=== PATIENT | female | born 1960 | race African-American/Black ===

== ENCOUNTER → 2016-07-26 | Day surgery (SDC) | payer BC ==
[~2016-07-26] VITALS: Ht 167.6 cm; Wt 69.8 kg
[~2016-07-26] MED LIST: ATRO1SOL11 RIGHT EYE; BACL20TA PO; FLUO10CA5 PO; FOLI1TAB4 PO; HYALURONIDASE/LIDOCAINE/EPINEPHRINE/BUPIVACAINE 4.5 ML SYR RIGHT EYE ONE; HYALURONIDASE/LIDOCAINE/EPINEPHRINE/BUPIVACAINE 6 ML SYR RIGHT EYE ONE; LIDOCAINE HCL 1% 30 ML VIAL ONE; METO50TA PO; METO50TA11 PO; MIDAZOLAM HCL 2 MG/2 ML VIAL ONE; OCUF0.3D RIGHT EYE; OMNI1SUS RIGHT EYE; PANT40TA3 PO; PROPARACAINE HCL 0.5% OPHT SOLN 15 ML BTL RIGHT EYE ONE; PROPOFOL 200 MG/20 ML AMP ONE; SODIUM CHLORID 0.9% 500 ML INJ 500 ML ONE
[2016-07-26 09:12] VITALS: BP 116/71; PULSE 65; RESP 18; TEMP 99.5; O2SAT 99
[2016-07-26] MEDS: TROPICAMIDE 1% OPHT SOLN 15 ML BTL RIGHT EYE SCH ×4 (09:15→09:30)
[2016-07-26] MEDS: CYCLOPENTOLATE HCL 1% OPHT SOLN 2 ML BTL RIGHT EYE SCH ×4 (09:15→09:30)
[2016-07-26] MEDS: PHENYLEPHRINE HCL 10% OPTH SOLN 5 ML BTL RIGHT EYE SCH ×4 (09:15→09:30)
[2016-07-26] MEDS: FLURBIPROFEN 0.03% OPHT SOLN 2.5 ML BTL RIGHT EYE SCH ×4 (09:15→09:30)
[2016-07-26 09:17] VITALS: PULSE 65
[2016-07-26 09:52] VITALS: PULSE 71
[2016-07-26] MEDS: TOBRAMYCIN/DEXAMETHASONE OPTH OINT 3.5 GM TUBE ONE ×2 (10:24→10:27)
[2016-07-26 11:20] VITALS: BP 90/45; PULSE 66; RESP 16; TEMP 98; O2SAT 99
--- NOTE | 2016-07-27 17:01 | MP ---
cc: DALE STAFFORD M.D. Corrected Copy: 08/07/16 [facility] #[id number] DATE OF SURGERY 07/26/15 POSTOPERATIVE DIAGNOSIS: Visually significant cataract right eye. OPERATION: Phacoemulsification with posterior chamber lens implantation, right eye. SURGEON: Dale Stafford MD ANESTHESIA: Retrobulbar with MAC. COMPLICATIONS: None. PROCEDURE: After informed consent was obtained, the patient was brought into the operative suite and placed on appropriate monitors by the Anesthesia Service. The patient had received a prior retrobulbar injection of local anesthetic by the Anesthesia Service in the holding area. The patient's operative eye was then prepped and draped in the usual sterile fashion. A wire lid speculum was placed. A paracentesis incision was made in the peripheral cornea with a 1 mm tosha keratome. The anterior chamber was filled with viscoelastic. The anterior chamber was then entered through a stepped, clear corneal incision using a sharp 3 mm tosha keratome. A circular tear capsulorrhexis was then made with a bent needle cystitome. Following hydrodissection of the lens nucleus with balanced saline, phaco-emulsification of the nucleus was performed using a modified chopping technique. The remaining cortex was removed with irrigation/aspiration. The prior two procedures were both performed using the handpieces of the [employer] phaco unit. The capsular bag was then filled with viscoelastic. The intraocular lens was then injected into the capsular bag and positioned. The type of intraocular lens and its power can be found elsewhere in this chart. The remaining viscoelastic was then removed from the anterior chamber with the IA handpiece. The anterior chamber was reformed with balanced saline. The wound was then closed securely with stromal hydration. It was found to be watertight to an intraocular pressure of at least 30 mmHg by palpation. A small amount of balanced salt solution was then removed through the paracentesis site and the intraocular pressure at the end of the case was approximately 20 by palpation. All drapes were then removed. TobraDex ointment was then placed in the eye, which was closed beneath a semi-pressure patch dressing. The patient tolerated this procedure well and left the operating room awake and alert. The patient is to follow-up in my office in the morning. MD GILDARDO Osei /11:06 AM /10:05 AM
== END | disposition home or self-care (01) ==
LOC: CSDC 08:26
PROVIDERS: ATTEND Optometrist Occupational Vision
DX: H25.11 Age-related nuclear cataract, right eye (principal)
CPT/HCPCS: 00142; 66984; J2250; J7040; V2632

== ENCOUNTER 2016-08-27 11:18 | Emergency (ER) | payer BC ==
[~2016-08-27] VITALS: Ht 167.6 cm; Wt 70.0 kg
[~2016-08-27 11:18] MED LIST changes: -HYALURONIDASE/LIDOCAINE/EPINEPHRINE/BUPIVACAINE 4.5 ML SYR RIGHT EYE ONE; -HYALURONIDASE/LIDOCAINE/EPINEPHRINE/BUPIVACAINE 6 ML SYR RIGHT EYE ONE; -LIDOCAINE HCL 1% 30 ML VIAL ONE; -METO50TA PO; -MIDAZOLAM HCL 2 MG/2 ML VIAL ONE; -PROPARACAINE HCL 0.5% OPHT SOLN 15 ML BTL RIGHT EYE ONE; -PROPOFOL 200 MG/20 ML AMP ONE; -SODIUM CHLORID 0.9% 500 ML INJ 500 ML ONE
[2016-08-27 11:21] VITALS: BP 139/65; PULSE 65; RESP 18; TEMP 97.9; O2SAT 100
[2016-08-27] MEDS ORDERED: SODIUM CHLOR 0.9% 1000 ML INJ 1,000 ML IV ONE (11:44)
[2016-08-27] MEDS ORDERED: diphenhydrAMINE HCL 50 MG/ML VIAL IV ONE (11:45)
[2016-08-27] MEDS ORDERED: MORPHINE SULFATE 8 MG/ML INJ IV PUSH ONE ×2 (11:45→13:45)
[2016-08-27] MEDS ORDERED: SODIUM CHLORIDE 0.9% FLUSH 5 ML FLUSH IVF PRN (11:45)
[2016-08-27] MEDS ORDERED: KETOROLAC TROMETHAMINE 30 MG/ML (IVP) VIAL IVP ONE (11:45)
[2016-08-27 11:52] VITALS: RESP 18; O2SAT 96
--- NOTE | 2016-08-27 12:11 | PD ---
HPI Chief Complaint: Sickle Cell Time Seen by Provider: 11:25 Travel History International Travel<30 days: No Contact w/Intl Traveler<30days: No Traveled to known affect area: No History of Present Illness HPI Patient is a 56-year-old female with a history of sickle cell anemia presents today with pain in her back bilateral upper extremities bilateral lower extremities. Patient states feels very similar to previous pain crisis she's had. She tried Aleve at home without relief and tried 1 Percocet. Patient denies any fevers cough shortness of breath abdominal pain nausea vomiting vaginal bleeding vaginal discharge dysuria. She does endorse some mild chest pain. Patient states the pain is been happening to her for the past 3 days gradually worsening. PFSH Past Medical History Arthritis: No Asthma: No Blood Disorders: Yes (DVT'S) Heart Rhythm Problems: No Cancer: No Cardiac Catheterization: No Cardiovascular Problems: Yes (PALPITATIONS) High Cholesterol: No Chemotherapy: No Chest Pain: No Congestive Heart Failure: No COPD: No Cerebrovascular Accident: No Diabetes: No Diminished Hearing: No Deep Vein Thrombosis: Yes Endocrine: No Gastrointestinal Disorders: No GERD: No Glaucoma: No Genitourinary: No Headaches: No Hepatitis: No Hiatal Hernia: No Hypertension: No Immune Disorder: No Implanted Vascular Access Dvce: Yes (PORT) Kidney Stones: No Musculoskeletal: Yes (ARTHRITIS) Neurologic: No Psychiatric: No Reproductive: No Respiratory: No Migraines: No Myocardial Infarction: No Radiation Therapy: No 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) Seizures: No Sickle Cell Disease: Yes Sleep Apnea: No Thyroid Disease: No Ulcer: No ?: Not Menopausal: Yes : 4 Para: 3 Miscarriage: 1 Ovarian Cysts: Yes Tubal Ligation: Yes (1996) Past Surgical History Abdominal Surgery: Yes (CHICHI, APPEND., COLON REPAIR) AICD: No Appendectomy: Yes Arteriovenous Shunt: No Body Medical Devices: LOOP RECORDER, INFUSA PORT Cardiac Surgery: Yes (CARDIAC LOOP RECORDER,) Cholecystectomy: Yes Coronary Artery Bypass Graft: No Ear Surgery: Yes Endocrine Surgery: No Eye Surgery: Yes (RIGHT EYE BLEED,) Genitourinary Surgery: No Gynecologic Surgery: Yes (OVARIAN CYSTS X3) Insulin Pump: No Joint Replacement: No Neurologic Surgery: No Oral Surgery: No Pacemaker: No Thoracic Surgery: No Other Surgery: Yes (LEFT SUBCLAV PORT) Social History Alcohol Use: No Tobacco Use: No Substance Use: No Allergies-Medications (Allergen,Severity, Reaction): Coded Allergies: Pneumococcal Vaccine (Verified Allergy, Severe, Edema, 08/27/16) ARM SWOLLEN Reported Meds & Prescriptions Reported Meds & Active Scripts Active Reported Atropine Opth Drops 1% Soln 1 Drop RIGHT EYE Q6H Ocuflox Opth Drops (Ofloxacin Opth Drops) 0.3 % Drops 1 Drop RIGHT EYE QID Pantoprazole (Pantoprazole Sodium) 40 Mg Tab 40 Mg PO DAILY Baclofen 20 Mg Tab 20 Mg PO TID PRN Folate (Folic Acid) 1 Mg Tab 1 Mg PO DAILY Fluoxetine (Fluoxetine HCl) 10 Mg Cap 10 Mg PO DAILY Metoprolol Succinate ER 24 HR (Metoprolol Succinate) 50 Mg Tab 50 Mg PO BID NEB Review of Systems Except as stated in HPI: all other systems reviewed are Neg Physical Exam Narrative GENERAL: [Well-developed well-nourished, appears fairly comfortable. SKIN: Warm and dry. HEAD: Atraumatic. Normocephalic. EYES: Pupils equal and round. No scleral icterus. No injection or drainage. ENT: No nasal bleeding or discharge. Mucous membranes pink and moist. NECK: Trachea midline. No JVD. CARDIOVASCULAR: Regular rate and rhythm. No murmur appreciated. 2+ bilateral equal pulses in all 4 extremities. RESPIRATORY: No accessory muscle use. Clear to auscultation. Breath sounds equal bilaterally. GASTROINTESTINAL: Abdomen soft, non-tender, nondistended. Hepatic and splenic margins not palpable. MUSCULOSKELETAL: No obvious deformities. No clubbing. No cyanosis. No edema. Nontender exam of her extremities, spine. NEUROLOGICAL: Awake and alert. No obvious cranial nerve deficits. Motor grossly within normal limits. Normal speech. PSYCHIATRIC: Appropriate mood and affect; insight and judgment normal. Data Data Last Documented VS Vital Signs Date Time Temp Pulse Resp B/P Pulse Ox O2 Delivery O2 Flow Rate FiO2 08/27/16 13:32 65 18 134/60 97 Room Air 08/27/16 11:21 97.9 Orders C-Reactive Protein (Crp) (08/27/16 11:44) Complete Blood Count With Diff (08/27/16 11:44) Comprehensive Metabolic Panel (08/27/16 11:44) Retic Count (08/27/16 11:44) Urinalysis - C+S If Indicated (08/27/16 11:44) Chest, Single Ap (08/27/16 11:44) Ecg Monitoring (08/27/16 11:44) Iv Access Insert/Monitor (08/27/16 11:44) Oximetry (08/27/16 11:44) Ketorolac Inj (Toradol Inj) (08/27/16 11:45) Sodium Chloride 0.9% Flush (Ns Flush) (08/27/16 11:45) Sodium Chlor 0.9% 1000 Ml Inj (Ns 1000 M (08/27/16 11:44) Morphine Inj (Morphine Inj) (08/27/16 11:45) Diphenhydramine Inj (Benadryl Inj) (08/27/16 11:45) Electrocardiogram (08/27/16 ) Troponin I (08/27/16 11:44) Vascular Access Team Consult PRN (08/27/16 12:01) Morphine Inj (Morphine Inj) (08/27/16 13:45) Labs Laboratory Tests Test 08/27/16 08/27/16 12:20 12:35 Urine Color YELLOW Urine Turbidity CLEAR Urine pH 7.0 Urine Specific [place] 1.006 Urine Protein NEG mg/dL Urine Glucose (UA) NEG mg/dL Urine Ketones NEG mg/dL Urine Occult Blood NEG Urine Nitrite NEG Urine Bilirubin NEG Urine Urobilinogen LESS THAN 2.0 MG/DL Urine Leukocyte Esterase NEG Urine RBC LESS THAN 1 /hpf Urine WBC 1 /hpf Urine Squamous Epithelial <1 /hpf Cells Urine Bacteria RARE /hpf Microscopic Urinalysis Comment CULT NOT INDICATED White Blood Count 12.8 TH/MM3 Red Blood Count 3.32 MIL/MM3 Hemoglobin 8.0 GM/DL Hematocrit 24.4 % Mean Corpuscular Volume 73.5 FL Mean Corpuscular Hemoglobin 24.0 PG Mean Corpuscular Hemoglobin 32.6 % Concent Red Cell Distribution Width 25.9 % Platelet Count 228 TH/MM3 Mean Platelet Volume 9.6 FL Neutrophils (%) (Auto) % Lymphocytes (%) (Auto) % Monocytes (%) (Auto) % Eosinophils (%) (Auto) % Basophils (%) (Auto) % Neutrophils # (Auto) TH/MM3 Lymphocytes # (Auto) TH/MM3 Monocytes # (Auto) TH/MM3 Eosinophils # (Auto) TH/MM3 Basophils # (Auto) TH/MM3 CBC Comment AUTO DIFF Differential Total Cells 100 Counted Neutrophils % (Manual) 37 % Band Neutrophils % 1 % Lymphocytes % 48 % Monocytes % 9 % Eosinophils % 2 % Basophils % 1 % Neutrophils # (Manual) 5.1 TH/MM3 Metamyelocytes 1 % Myelocytes 1 % Nucleated Red Blood Cells 179 /100 WBC Differential Comment FINAL DIFF MANUAL Platelet Estimate NORMAL Platelet Morphology Comment NORMAL Polychromasia 3.7 % Basophilic Stippling MOD Sickle Cells 1+ Target Cells 2+ Red Cell Morphology Comment Reticulocyte Count 14.3 % Absolute Reticulocyte Count 475.7 MIL/L Sodium Level 139 MEQ/L Potassium Level 4.1 MEQ/L Chloride Level 104 MEQ/L Carbon Dioxide Level 27.8 MEQ/L Anion Gap 7 MEQ/L Blood Urea Nitrogen 5 MG/DL Creatinine 0.61 MG/DL Estimat Glomerular Filtration 124 ML/MIN Rate Random Glucose 86 MG/DL Calcium Level 9.1 MG/DL Total Bilirubin 3.3 MG/DL Aspartate Amino Transf 81 U/L (AST/SGOT) Alanine Aminotransferase 41 U/L (ALT/SGPT) Alkaline Phosphatase 277 U/L Troponin I LESS THAN 0.02 NG/ML C-Reactive Protein 0.81 MG/DL Total Protein 8.1 GM/DL Albumin 3.9 GM/DL MDM Medical Decision Making Medical Screen Exam Complete: Yes Emergency Medical Condition: Yes Interpretation(s) EKG shows normal sinus rhythm with normal axis and normal R-wave progression. No concerning ST-T changes. Intervals within normal limits. This normal EKG. Differential Diagnosis Sickle cell pain crisis, anemia, occlusive crisis, sequestration crisis unlikely , aplastic crisis is possible but unlikely, ACS seems unlikely. Narrative Course Patient 56-year-old female presents with what appears to be an occlusive pain crisis, she has been trying Aleve and Percocet at home, she was given morphine to a total of 12 mg IV in emerged Department, Toradol, Benadryl and fluids. After the second dose she states she is feeling well enough to go home. I did discuss with her that 56 years old and her chest pain needs to be considered for ACS. She is highly atypical today and a heart score is 2 though this score may be difficult to apply the sickle cell pain crisis patient's for that reason the patient was offered admission to the hospital for consideration of stress testing. Patient did have a stress test in July of last year. She tells me was normal at that time. After discussions of risks benefits competitions she would like to follow-up with her primary care physician. She states her next appointment is a man I said this would be unacceptable follow- up and she needs to have earlier follow-up and she will call for an earlier an appointment. Discussed she is intolerant to return at any time for further evaluation of her chest pain if it recurs. She did verbalize a risk of major adverse cardiac event in the next 30 days and acceptance of a risk. Diagnosis Primary Impression: Sickle cell crisis Referrals: Tatiana Leblanc MD Disposition: 01 DISCHARGE HOME Condition: Stable Paul Lemos MD Aug 27, 2016 12:11
[2016-08-27 12:47] LABS: HEMATOCRIT 24.4 % (35.0-46.0); MEAN CELL VOLUME 73.5 FL (80.0-100.0); MEAN CORPUSCULAR HGB CONC 32.6 % (32.0-36.0); PLATELET COUNT 228 TH/MM3 (150-450); RED BLOOD COUNT 3.32 MIL/MM3 (4.00-5.30); RED CELL DISTRIBUTION WIDTH 25.9 % (11.6-17.2); RETIC % 14.3 % (0.4-3.0); WHITE BLOOD COUNT 12.8 TH/MM3 (4.0-11.0)
[2016-08-27 12:51] LABS: HEMO FLAGS AUTO DIFF
[2016-08-27 13:05] LABS: BACTERIA, URINE RARE /hpf; BLOOD, URINE NEG (NEG); COMMENT (UR) CULT NOT INDICATED; CULTURE IF INDICATED CULT NOT INDICATED; GLUCOSE,URINE NEG (NEG); KETONE, URINE NEG (NEG); NITRITE,URINE NEG (NEG); SQUAMOUS EPITHELIAL CELL URINE <1 /hpf (0-5); URINE COLOR YELLOW (YELLW/STRAW)
--- NOTE | 2016-08-27 13:08 | RADRPT ---
EXAM DATE/TIME: 08/27/2016 12:43 [facility] COMPARISON: CHEST SINGLE AP, July 29, 2015, 9:01. INDICATIONS : Chest pain. MEDICAL HISTORY : Sickle Cell disease. SURGICAL HISTORY : Cholecystectomy. Appendectomy. Tubal ligation. ENCOUNTER: Subsequent ACUITY: 1 day PAIN SCORE: 5/10 LOCATION: middle chest FINDINGS: A single view of the chest demonstrates hypoaerated lungs with no evidence of significant congestion or consolidating airspace disease. There some mild interstitial vascular crowding. Heart and mediastinal structures are stable. Left-sided [id number] is noted. CONCLUSION: No acute disease. Srikanth Kent MD on August 27, 2016 at 13:05 Board Certified Radiologist. This report was verified electronically.
[2016-08-27 13:18] LABS: ANION GAP 7 MEQ/L (5-15); AST (GOT) 81 U/L (15-37); BICARBONATE 27.8 MEQ/L (21.0-32.0); BLOOD UREA NITROGEN 5 MG/DL (7-18); CHLORIDE 104 MEQ/L (98-107); GLOMERULAR FILTRATION RATE 124 ML/MIN (>89); POTASSIUM 4.1 MEQ/L (3.5-5.1); SODIUM (NA) 139 MEQ/L (136-145)
[2016-08-27 13:22] LABS: ALKALINE PHOSPHATASE 277 U/L (45-117); ALT (GPT) 41 U/L (10-53); TOTAL BILIRUBIN ADULT 3.3 MG/DL (0.2-1.0)
[2016-08-27 13:25] LABS: BANDS 1 % (0-6); BASOPHILS 1 % (0-2); CORRECTED NUCLEATED RBC 179 /100 WBC (0-0); EOSINOPHILS 2 % (0-4); METAMYELOCYTES 1 % (0-1); MYELOCYTES 1 % (0-0); NEUTROPHIL # MANUAL DIFF 5.1 TH/MM3 (1.8-7.7); POLYS (SEG NEUTROPHILS) 37 % (16-70); WBC DIFF SAMPLE 100
[2016-08-27 13:26] LABS: PLATELET ESTIMATE SMEAR NORMAL (NORMAL); PLATELET MORPHOLOGY NORMAL (NORMAL); SCAN/DIFF FINAL DIFF MANUAL; SICKLE CELLS 1+ (NORMAL); TARGET CELLS 2+ (NORMAL)
[2016-08-27 13:27] LABS: POLYCHROMASIA 3.7 % (0.0-1.9)
[2016-08-27 13:32] VITALS: BP 134/60; PULSE 65; RESP 18; O2SAT 97
--- NOTE | 2016-08-28 14:51 | EKG ---
Date Performed: 08/27/2016 Time Performed: 11:56:14 PTAGE: 56 years EKG: Sinus rhythm Compared to prior tracing no significant change NORMAL ECG PREVIOUS TRACING : 07/29/2015 18.57 DOCTOR: Braulio Orantes Interpretating Date/Time 08/28/2016 14:47:42
[2016-08-28] MEDS ORDERED: METO50TA PO ×2 (17:31)
== END 2016-08-27 16:00 | disposition home or self-care (01) ==
LOC: NEPC 11:18
DX: D57.00 Hb-SS disease with crisis, unspecified (principal)
CPT/HCPCS: 71010; 80053; 81001; 84484; 85007; 85027; 85044; 86140; 93005; 96374; 96375; 96376; J1200; J1885; J2270; J7030

== ENCOUNTER 2016-08-28 11:56 | Inpatient (IN) | payer BC ==
[~2016-08-28] VITALS: Ht 167.6 cm; Wt 71.3 kg
[2016-08-28 13:28] VITALS: BP 125/60; PULSE 65; RESP 18; O2SAT 99
--- NOTE | 2016-08-28 13:57 | PD ---
HPI Chief Complaint: Sickle Cell Time Seen by Provider: 13:44 Travel History International Travel<30 days: No Contact w/Intl Traveler<30days: No Traveled to known affect area: No History of Present Illness HPI 56-year-old female complains of chest pain, back pain, extremity pain. Patient has history of sickle cell disease with frequent sickle cell crisis. Patient was seen in emergency room yesterday and given morphine for pain. Patient states the pain got better with medications. Patient was advised to be admitted or discharged home with medication. Patient went home and has increasing pain since then. Patient has been taking Percocet at home without much relief of the pain. Patient denies any headache. Patient states that she has intermittent sharp pain on the left chest. Patient complained of back pain extremity pain also. Patient denies any fever chills. Patient denied dysuria or frequency. Patient denies any coughing congestion. On a scale of 1-10 the pain is a 10. PFSH Past Medical History Arthritis: No Asthma: No Blood Disorders: Yes (DVT'S) Heart Rhythm Problems: No Cancer: No Cardiac Catheterization: No Cardiovascular Problems: Yes (PALPITATIONS) High Cholesterol: No Chemotherapy: No Chest Pain: No Congestive Heart Failure: No COPD: No Cerebrovascular Accident: No Diabetes: No Diminished Hearing: No Deep Vein Thrombosis: Yes Endocrine: No Gastrointestinal Disorders: No GERD: No Glaucoma: No Genitourinary: No Headaches: No Hepatitis: No Hiatal Hernia: No Heparin Induced Thrombocytopen: No Hypertension: Yes Immune Disorder: No Implanted Vascular Access Dvce: Yes (PORT) Kidney Stones: No Medical other: Yes (SICKLE CELL DISEASE, DVT) Musculoskeletal: Yes (ARTHRITIS) Neurologic: No Psychiatric: No Reproductive: No Respiratory: No Migraines: No Myocardial Infarction: No Radiation Therapy: No 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) Seizures: No Sickle Cell Disease: Yes Sleep Apnea: No Thyroid Disease: No Ulcer: No ?: Not Menopausal: Yes : 4 Para: 3 Miscarriage: 1 Ovarian Cysts: Yes Tubal Ligation: Yes (1996) Past Surgical History Abdominal Surgery: Yes (CHICHI, APPEND., COLON REPAIR) AICD: No Appendectomy: Yes Arteriovenous Shunt: No Body Medical Devices: LOOP RECORDER, INFUSA PORT Cardiac Surgery: Yes (CARDIAC LOOP RECORDER,) Cholecystectomy: Yes Coronary Artery Bypass Graft: No Ear Surgery: Yes Endocrine Surgery: No Eye Surgery: Yes (RIGHT EYE BLEED,) Genitourinary Surgery: No Gynecologic Surgery: Yes (OVARIAN CYSTS X3) Insulin Pump: No Joint Replacement: No Neurologic Surgery: No Oral Surgery: No Pacemaker: No Thoracic Surgery: No Other Surgery: Yes (LEFT SUBCLAV PORT) Family History Family Myocardial Infarction: No Social History Alcohol Use: No Tobacco Use: No Substance Use: No Allergies-Medications (Allergen,Severity, Reaction): Coded Allergies: Pneumococcal Vaccine (Verified Allergy, Severe, Edema, 08/27/16) ARM SWOLLEN Reported Meds & Prescriptions Reported Meds & Active Scripts Active Reported Atropine Opth Drops 1% Soln 1 Drop RIGHT EYE Q6H Ocuflox Opth Drops (Ofloxacin Opth Drops) 0.3 % Drops 1 Drop RIGHT EYE QID Pantoprazole (Pantoprazole Sodium) 40 Mg Tab 40 Mg PO DAILY Baclofen 20 Mg Tab 20 Mg PO TID PRN Folate (Folic Acid) 1 Mg Tab 1 Mg PO DAILY Fluoxetine (Fluoxetine HCl) 10 Mg Cap 10 Mg PO DAILY Metoprolol Succinate ER 24 HR (Metoprolol Succinate) 50 Mg Tab 50 Mg PO BID NEB Review of Systems General / Constitutional: No: Fever Eyes: No: Visual changes HENT: No: Headaches Cardiovascular: Positive: Chest Pain or Discomfort Respiratory: No: Shortness of Breath Gastrointestinal: No: Abdominal Pain Genitourinary: No: Dysuria Musculoskeletal: Positive: Pain Skin: No Rash Neurologic: No: Weakness Psychiatric: No: Depression Endocrine: No: Polydipsia Hematologic/Lymphatic: No: Easy Bruising Physical Exam Narrative GENERAL: Well-nourished, well-developed patient. SKIN: Warm and dry. HEAD: Normocephalic. EYES: No scleral icterus. No injection or drainage. NECK: Supple, trachea midline. No JVD or lymphadenopathy. CARDIOVASCULAR: Regular rate and rhythm without murmurs, gallops, or rubs. RESPIRATORY: Breath sounds equal bilaterally. No accessory muscle use. GASTROINTESTINAL: Abdomen soft, non-tender, nondistended. MUSCULOSKELETAL: No cyanosis, or edema. BACK: Nontender without obvious deformity. No CVA tenderness. Neurologic exam normal. Data Data Last Documented VS Vital Signs Date Time Temp Pulse Resp B/P Pulse Ox O2 Delivery O2 Flow Rate FiO2 08/28/16 14:15 18 98 Room Air 08/28/16 13:28 65 125/60 Orders Creatine Kinase (Cpk) (08/28/16 13:54) Troponin I (08/28/16 13:54) Retic Count (08/28/16 13:58) Complete Blood Count With Diff (08/28/16 14:01) Comprehensive Metabolic Panel (08/28/16 14:01) Prothrombin Time / Inr (Pt) (08/28/16 14:01) Act Partial Throm Time (Ptt) (08/28/16 14:01) Urinalysis - C+S If Indicated (08/28/16 14:) Iv Access Insert/Monitor (08/28/16 14:) Ecg Monitoring (08/28/16 14:) Oximetry (08/28/16 14:) Ondansetron Inj (Zofran Inj) (08/28/16 14:15) Sodium Chlor 0.9% 1000 Ml Inj (Ns 1000 M (08/28/16 14:01) Hydromorphone Pf Inj (Dilaudid Pf Inj) (08/28/16 14:15) Labs Laboratory Tests Test 08/28/16 08/28/16 08/28/16 08/28/16 14:00 14:25 15:07 15:27 Reticulocyte Count 16.6 % Absolute Reticulocyte Count 574.2 MIL/L Total Creatine Kinase 43 U/L Troponin I LESS THAN 0.02 NG/ML Prothrombin Time 10.6 SEC Prothromb Time International 1.0 RATIO Ratio Activated Partial 22.9 SEC Thromboplast Time Sodium Level 139 MEQ/L Potassium Level 5.3 MEQ/L Chloride Level 105 MEQ/L Carbon Dioxide Level 25.5 MEQ/L Anion Gap 9 MEQ/L Blood Urea Nitrogen 6 MG/DL Creatinine 0.58 MG/DL Estimat Glomerular Filtration 131 ML/MIN Rate Random Glucose 74 MG/DL Calcium Level 9.1 MG/DL Total Bilirubin 5.0 MG/DL Aspartate Amino Transf 138 U/L (AST/SGOT) Alanine Aminotransferase 46 U/L (ALT/SGPT) Alkaline Phosphatase 291 U/L Total Protein 8.0 GM/DL Albumin 3.7 GM/DL Urine Color YELLOW Urine Turbidity HAZY Urine pH 6.5 Urine Specific [place] 1.006 Urine Protein NEG mg/dL Urine Glucose (UA) NEG mg/dL Urine Ketones NEG mg/dL Urine Occult Blood NEG Urine Nitrite NEG Urine Bilirubin NEG Urine Urobilinogen 4.0 MG/DL Urine Leukocyte Esterase MOD Urine RBC LESS THAN 1 /hpf Urine WBC 7 /hpf Urine Squamous Epithelial <1 /hpf Cells Microscopic Urinalysis Comment CULT NOT INDICATED White Blood Count 13.9 TH/MM3 Red Blood Count 3.24 MIL/MM3 Hemoglobin 7.8 GM/DL Hematocrit 24.7 % Mean Corpuscular Volume 76.1 FL Mean Corpuscular Hemoglobin 24.0 PG Mean Corpuscular Hemoglobin 31.6 % Concent Red Cell Distribution Width 27.3 % Platelet Count 244 TH/MM3 Mean Platelet Volume 9.7 FL Neutrophils (%) (Auto) 56.8 % Lymphocytes (%) (Auto) 28.5 % Monocytes (%) (Auto) 11.5 % Eosinophils (%) (Auto) 1.3 % Basophils (%) (Auto) 1.9 % Neutrophils # (Auto) 7.9 TH/MM3 Lymphocytes # (Auto) 3.9 TH/MM3 Monocytes # (Auto) 1.6 TH/MM3 Eosinophils # (Auto) 0.2 TH/MM3 Basophils # (Auto) 0.3 TH/MM3 CBC Comment AUTO DIFF MDM Medical Decision Making Medical Screen Exam Complete: Yes Emergency Medical Condition: Yes Interpretation(s) 1551 PM. CBC WBC 13.9. Hemoglobin 7.8 hematocrit 24.7. MCV 76. Reticulocyte count 16.6. Potassium 5.3. Hemolyzed specimen. Cardiac enzymes are normal. UA is negative. Differential Diagnosis Differential diagnosis including sickle cell disease with a sickle cell pain, dehydration, electrolyte abnormality. Narrative Course 56-year-old female with chest pain, back pain, extremity pain. History of sickle cell disease with frequent sickle cell crisis. Normal saline solution 1 L IV bolus. Dilaudid 1 mg IV. Zofran 4 mg IV. Diagnosis Primary Impression: Sickle cell crisis Admitting Information Admitting Physician Requests: Admit Bebeto Ortiz MD Aug 28, 2016 13:57
[2016-08-28] MEDS ORDERED: SODIUM CHLOR 0.9% 1000 ML INJ 1,000 ML IV SCH (14:01)
[2016-08-28 14:11] LABS: RETIC % 16.6 % (0.4-3.0)
[2016-08-28 14:15] VITALS: RESP 18; O2SAT 98
[2016-08-28] MEDS ORDERED: HYDROmorphone HCL PF 1 MG/ML VIAL IVS ONE (14:15)
[2016-08-28] MEDS ORDERED: ONDANSETRON HCL 4 MG/2 ML VIAL IVP ONE (14:15)
[2016-08-28 14:16] LABS: REVIEW FLAG FINAL
[2016-08-28 14:33] LABS: CREATINE KINASE 43 U/L (26-192)
[2016-08-28 15:01] LABS: APTT (PATIENT) 22.9 SEC (24.3-30.1); PROTHROMBIN TIME - PATIENT 10.6 SEC (9.8-11.6)
[2016-08-28 15:22] LABS: ALKALINE PHOSPHATASE 291 U/L (45-117); ALT (GPT) 46 U/L (10-53); ANION GAP 9 MEQ/L (5-15); AST (GOT) 138 U/L (15-37); BICARBONATE 25.5 MEQ/L (21.0-32.0); BLOOD UREA NITROGEN 6 MG/DL (7-18); CHLORIDE 105 MEQ/L (98-107); GLOMERULAR FILTRATION RATE 131 ML/MIN (>89); SODIUM (NA) 139 MEQ/L (136-145)
[2016-08-28 15:23] LABS: POTASSIUM 5.3 MEQ/L (3.5-5.1)
[2016-08-28 15:36] LABS: BLOOD, URINE NEG (NEG); COMMENT (UR) CULT NOT INDICATED; CULTURE IF INDICATED CULT NOT INDICATED; GLUCOSE,URINE NEG (NEG); KETONE, URINE NEG (NEG); NITRITE,URINE NEG (NEG); PH, URINE 6.5 (5.0-8.5); SQUAMOUS EPITHELIAL CELL URINE <1 /hpf (0-5); URINE COLOR YELLOW (YELLW/STRAW)
[2016-08-28 15:43] LABS: AUTOMATED NEUTROPHIL # 7.9 TH/MM3 (1.8-7.7); BASOPHIL # 0.3 TH/MM3 (0-0.2); BASOPHIL % 1.9 % (0.0-2.0); EOSINOPHIL # 0.2 TH/MM3 (0-0.4); EOSINOPHIL % 1.3 % (0.0-4.0); HEMATOCRIT 24.7 % (35.0-46.0); LYMPH % 28.5 % (9.0-44.0); LYMPHOCYTE # 3.9 TH/MM3 (1.0-4.8); MEAN CELL VOLUME 76.1 FL (80.0-100.0); MEAN CORPUSCULAR HGB CONC 31.6 % (32.0-36.0); MONO % 11.5 % (0.0-8.0); NEUT % 56.8 % (16.0-70.0); PLATELET COUNT 244 TH/MM3 (150-450); RED BLOOD COUNT 3.24 MIL/MM3 (4.00-5.30); RED CELL DISTRIBUTION WIDTH 27.3 % (11.6-17.2); WHITE BLOOD COUNT 13.9 TH/MM3 (4.0-11.0)
[2016-08-28 15:47] LABS: HEMO FLAGS AUTO DIFF
[2016-08-28 16:27] LABS: BANDS 8 % (0-6); CORRECTED NUCLEATED RBC 140 /100 WBC (0-0); MYELOCYTES 2 % (0-0); NEUTROPHIL # MANUAL DIFF 8.2 TH/MM3 (1.8-7.7); POLYS (SEG NEUTROPHILS) 48 % (16-70); PROMYELOCYTES 1 % (0-0); WBC DIFF SAMPLE 100
[2016-08-28 16:28] LABS: SICKLE CELLS 2+ (NORMAL)
[2016-08-28] MEDS ORDERED: diphenhydrAMINE HCL 50 MG/ML VIAL IV PUSH ONE (16:30)
[2016-08-28] MEDS ORDERED: HYDROmorphone HCL PF 1 MG/ML VIAL IV PUSH ONE (16:30)
[2016-08-28 16:31] LABS: POLYCHROMASIA 5.5 % (0.0-1.9)
[2016-08-28 16:32] LABS: TARGET CELLS 1+ (NORMAL); TOXIC VACUOLATION PRESENT (NONE SEEN)
[2016-08-28 16:33] LABS: PLATELET ESTIMATE SMEAR NORMAL (NORMAL); PLATELET MORPHOLOGY ENLARGED (NORMAL)
[2016-08-28 16:34] VITALS: BP 118/56; PULSE 74; RESP 18; O2SAT 98
[2016-08-28 16:34] LABS: SCAN/DIFF FINAL DIFF MANUAL
[2016-08-28 16:35] LABS: STOMATOCYTES 1+ (NORMAL)
[2016-08-28] MEDS ORDERED: METO50TA PO ×2 (17:31)
--- NOTE | 2016-08-28 18:07 | HHI.HP ---
[facility] Kenneth Whitaker Admission Diagnosis sickle cell crisis Diagnoses: Travel History International Travel<30 Days: No Contact w/Intl Traveler <30 Da: No Traveled to Known Affected Are: No History of Present Illness Patient is a 56-year-old female with primary medical history of sickle cell, DVTs, arthritis who came into the hospital today for complaints of increasing chest pain, back pain, bilateral lower extremity pain. Pain is rated as 7/10, radiating towards her hips, unrelieved by pain medication Percocet and rest. Patient states that she started to have pain last Saturday, and it was worsening. She also noted that she has left lateral chest pain which is something new for her. Left lateral chest pain is sharp, makes her short of breath and unable to take deep breaths. She usually manages her pain with ibuprofen and rest, Percocet use on occasion. She was seen yesterday in the ED for same complaints and was discharged home with pain medication. She came back to the hospital secondary to intermittent sharp pain on the left lateral chest. Patient reports she has a history of DVTs bilateral lower extremity she, previously on Coumadin from to 2005. States that in 2005 she had ovarian cyst surgery and when she went home they did not restart her Coumadin but was placed on Lovenox for 7 days. She has not taken Coumadin since then. Patient reports bilateral lower extremity pain with trace edema right greater than the left. She usually elevates her legs to relieve the edema. Denies cough, congestion, headaches, dizziness. Denies fevers, chills, n /v/d. Denies abdominal cramping, dysuria, hematuria. Patient also follows with Dr. Urbina and has a loop recorder in place secondary to palpitations. She is due to be seen in October. Patient also being followed by oncology secondary to sickle cell. WBC 13.9, hemoglobin 7.8, hematocrit 24.7. Potassium 5.3, total bilirubin 5.0, AST 138, AST 46, alkaline phosphatase 291. CK 43. Troponin less than 0.02 08/27/16 Chest x-ray no acute disease. The patient says that her sickle cell pain seems worse at this time. She has pain in her bilateral lower extremities and also at the chest. She says the chest pain is worse on the left side and gets worse with movements and positioning. She does not have shortness of breath at this time. She says she was scheduled to see a new oncologist but that appointment is not until October. She says the Dilaudid is helping with her pain. Review of Systems Except as stated in HPI: all other systems reviewed are Neg Past Family Social History Past Medical History Sickle cell DVT Palpitations Arthritis Right adrenal hematoma Ovarian cysts Right eye hemorrhagic bleed Cataracts Past Surgical History Tubal ligation Cholecystectomy Appendectomy Colon Repair Loop recorder insertion July 2016 Right eye surgery secondary to bleeding Left subclavian port Reported Medications Atropine Opth Drops 1% Soln 1 Drop RIGHT EYE Q6H Ocuflox Opth Drops (Ofloxacin Opth Drops) 0.3 % Drops 1 Drop RIGHT EYE QID Pantoprazole (Pantoprazole Sodium) 40 Mg Tab 40 Mg PO DAILY Baclofen 20 Mg Tab 20 Mg PO TID PRN Folate (Folic Acid) 1 Mg Tab 1 Mg PO DAILY Fluoxetine (Fluoxetine HCl) 10 Mg Cap 10 Mg PO DAILY Metoprolol Succinate ER 24 HR (Metoprolol Succinate) 50 Mg Tab 50 Mg PO BID NEB Allergies: Coded Allergies: Pneumococcal Vaccine (Verified Allergy, Severe, Edema, 08/27/16) ARM SWOLLEN Family History Father has CHF Mother of aneurysm bleed Both parents have sickle trait Social History Denies alcohol use Denies tobacco use Denies illicit drug use Physical Exam Vital Signs Vital Signs Date Time Temp Pulse Resp B/P Pulse Ox O2 Delivery O2 Flow Rate FiO2 08/28/16 16:34 74 18 118/56 98 Nasal Cannula 1 08/28/16 14:15 18 98 Room Air 08/28/16 13:28 65 18 125/60 99 Room Air 08/28/16 13:28 67 18 98 Room Air Physical Exam GENERAL: This is a well-nourished, well-developed patient, in no apparent distress. SKIN: No rashes, ecchymoses or lesions. Cool and dry. HEAD: Atraumatic. Normocephalic. No temporal or scalp tenderness. EYES: Pupils equal round and reactive. Extraocular motions intact. No scleral icterus. No injection or drainage. ENT: Nose without bleeding. Throat without erythema. Uvula midline. Airway patent. NECK: Trachea midline. No JVD or lymphadenopathy. Supple, nontender, no meningeal signs. CARDIOVASCULAR: Regular rate and rhythm without murmurs, gallops, or rubs. Reproducible chest pain upon palpation of the sternum. RESPIRATORY: Clear to auscultation. Breath sounds equal bilaterally. No wheezes , rales, or rhonchi. GASTROINTESTINAL: Abdomen soft, non-tender, nondistended. Bowel sounds active 4. MUSCULOSKELETAL: Extremities without clubbing, cyanosis, bilateral lower extremity trace edema. Bilateral knee joint tenderness, trace edema noted. The patient has reproducible chest pain upon palpation of the sternum. NEUROLOGICAL: Awake and alert. Oriented 3. Motor and sensory grossly within normal limits. Moves all extremities. Normal speech. Laboratory Laboratory Tests Test 08/28/16 08/28/16 08/28/16 08/28/16 14:00 14:25 15:07 15:27 Reticulocyte Count 16.6 Absolute Reticulocyte Count 574.2 Total Creatine Kinase 43 Troponin I LESS THAN 0.02 Prothrombin Time 10.6 Prothromb Time International 1.0 Ratio Activated Partial 22.9 Thromboplast Time Sodium Level 139 Potassium Level 5.3 Chloride Level 105 Carbon Dioxide Level 25.5 Anion Gap 9 Blood Urea Nitrogen 6 Creatinine 0.58 Estimat Glomerular Filtration 131 Rate Random Glucose 74 Calcium Level 9.1 Total Bilirubin 5.0 Aspartate Amino Transf 138 (AST/SGOT) Alanine Aminotransferase 46 (ALT/SGPT) Alkaline Phosphatase 291 Total Protein 8.0 Albumin 3.7 Urine Color YELLOW Urine Turbidity HAZY Urine pH 6.5 Urine Specific [place] 1.006 Urine Protein NEG Urine Glucose (UA) NEG Urine Ketones NEG Urine Occult Blood NEG Urine Nitrite NEG Urine Bilirubin NEG Urine Urobilinogen 4.0 Urine Leukocyte Esterase MOD Urine RBC LESS THAN 1 Urine WBC 7 Urine Squamous Epithelial <1 Cells Microscopic Urinalysis Comment CULT NOT INDICATED White Blood Count 13.9 Red Blood Count 3.24 Hemoglobin 7.8 Hematocrit 24.7 Mean Corpuscular Volume 76.1 Mean Corpuscular Hemoglobin 24.0 Mean Corpuscular Hemoglobin 31.6 Concent Red Cell Distribution Width 27.3 Platelet Count 244 Mean Platelet Volume 9.7 Neutrophils (%) (Auto) 56.8 Lymphocytes (%) (Auto) 28.5 Monocytes (%) (Auto) 11.5 Eosinophils (%) (Auto) 1.3 Basophils (%) (Auto) 1.9 Neutrophils # (Auto) 7.9 Lymphocytes # (Auto) 3.9 Monocytes # (Auto) 1.6 Eosinophils # (Auto) 0.2 Basophils # (Auto) 0.3 CBC Comment AUTO DIFF Differential Total Cells 100 Counted Neutrophils % (Manual) 48 Band Neutrophils % 8 Lymphocytes % 38 Monocytes % 3 Neutrophils # (Manual) 8.2 Myelocytes 2 Promyelocytes 1 Nucleated Red Blood Cells 140 Differential Comment FINAL DIFF MANUAL Toxic Vacuolation PRESENT Platelet Estimate NORMAL Platelet Morphology Comment ENLARGED Polychromasia 5.5 Sickle Cells 2+ Target Cells 1+ Stomatocytes 1+ Result Diagram: 08/28/16 1527 08/28/16 1425 Assessment and Plan Problem List: (1) Sickle cell crisis ICD Code: D57.00 Status: Acute (2) Chest pain ICD Code: R07.9 Status: Acute (3) Sickle cell anemia ICD Code: D57.1 Status: Chronic Assessment and Plan Patient is a 56-year-old female with primary medical history of sickle cell, DVTs, arthritis who came into the hospital today for complaints of increasing chest pain, back pain, bilateral lower extremity pain. Pain is rated as 7/10, radiating towards her hips, unrelieved by pain medication Percocet and rest. Patient states that she started to have pain last Saturday, and it was worsening. She also noted that she has left lateral chest pain which is something new for her. Left lateral chest pain is sharp, makes her short of breath and unable to take deep breaths. She usually manages her pain with ibuprofen and rest, Percocet use on occasion. She was seen yesterday in the ED for same complaints and was discharged home with pain medication. She came back to the hospital secondary to intermittent sharp pain on the left lateral chest. Patient reports she has a history of DVTs bilateral lower extremity, she was previously on Coumadin from to 2005. States that in 2005 she had ovarian cyst surgery and when she went home they did not restart her Coumadin but was placed on Lovenox for 7 days. She has not taken Coumadin since then. Patient reports bilateral lower extremity pain with trace edema right greater than the left. She usually elevates her legs to relieve the edema. Sickle cell crisis Sickle cell anemia - IV fluids NS 100ml/hr - Pain medication, Percocet when necessary, IV Dilaudid for breakthrough pain - Monitor H&H Oncology consult pending. Continue pain control and IV fluids. Oxygen as needed. Left lateral chest pain - troponin less than 0.02 - Chest x-ray showed no acute disease - Last CTA 07/29/15 showed no pulmonary emboli. No acute intrathoracic process. 12 mm low density nodule involving the right thyroid lobe. - EF in 2016 calculated as 67% Chest pain is reproducible upon palpation of the sternum. Likely musculoskeletal. The patient denies any shortness of breath or pleuritic chest pain at this time so pulmonary embolism is unlikely. Continue pain management and reevaluate. Bilateral lower extremity edema - history of DVT off anticoagulants since 2005 The patient says she typically gets lower extremity edema with flares of her sickle cell disease. Continue symptomatically treatment and reevaluate. Palpitations - on loop recorder - On beta aida metoprolol 50 mg twice a day Continue beta aida. Outpatient follow-up. DVT prop Lovenox Written by Desi Clements, on behalf of Dr. Reyez on 08/28/16 at 17:50. Code Status Full code Discussed Condition With Patient, nursing, ED attending Physician Certification 2 Midnight Certification Type: Admission for Inpatient Services Order for Inpatient Services The services are ordered in accordance with Medicare regulations or non- Medicare payer requirements, as applicable. In the case of services not specified as inpatient-only, they are appropriately provided as inpatient services in accordance with the 2-midnight benchmark. Estimated LOS (days): 2 days is the estimated time the patient will need to remain in the hospital, assuming treatment plan goals are met and no additional complications. Post-Hospital Plan: Not yet determined Notes: The exam, history, and the medical decision-making described in the above note were completed with the assistance of the mid-level provider. I reviewed and agree with the findings presented. I attest that I had a [id number] encounter with the patient on the same day, and personally performed and documented my assessment and findings in the medical record. Problem Qualifiers (1) Sickle cell anemia: Qualified Code: D57.00 - Hb-SS disease with crisis Desi Last Aug 28, 2016 18:07 Elieser Reyez DO Aug 28, 2016 19:12
[2016-08-28] MEDS ORDERED: MAGNESIUM HYDROXIDE SUSP 30 ML CUP PO PRN (18:15)
[2016-08-28] MEDS ORDERED: SENNOSIDES 8.6 MG TAB PO PRN (18:15)
[2016-08-28] MEDS ORDERED: ONDANSETRON HCL 4 MG/2 ML VIAL IVP PRN (18:15)
[2016-08-28] MEDS ORDERED: SODIUM CHLORIDE 0.9% FLUSH 5 ML FLUSH FLUSH PRN (18:15)
[2016-08-28] MEDS ORDERED: NALOXONE HCL 0.4 MG/ML AMP IV PRN (18:15)
[2016-08-28] MEDS ORDERED: BACLOFEN 20 MG TAB PO PRN (18:30)
[2016-08-28] MEDS ORDERED: RESP: ALBUTEROL 2.5 MG/IPRATROPIUM 0.5 MG NEB (PRN) NEB (18:45)
[2016-08-28 19:00] LABS: BETA HCG QUANT 2 MIU/ML (0-5)
[2016-08-28 20:00] VITALS: BP 127/61; PULSE 64; PULSE 70; RESP 16; TEMP 98.2; O2SAT 97
[2016-08-28] MEDS: SODIUM CHLOR 0.9% 1000 ML INJ 1,000 ML IV SCH (20:01)
[2016-08-28] MEDS: prednisoLONE ACETATE 1% OPHT SUSP 5 ML BTL RIGHT EYE SCH (20:07)
[2016-08-28] MEDS: DOCUSATE SODIUM 100 MG CAP PO SCH (20:07)
[2016-08-28] MEDS: SODIUM CHLORIDE 0.9% FLUSH 5 ML FLUSH FLUSH SCH (20:07)
[2016-08-28] MEDS: ENOXAPARIN SODIUM 40 MG/0.4 ML SYRINGE SQ SCH (20:07)
[2016-08-28] MEDS: ATROPINE SULFATE 1% OPHT SOLN 2 ML BTL RIGHT EYE SCH (20:14)
[2016-08-28] MEDS: HYDROmorphone HCL PF 1 MG/ML VIAL IV PUSH PRN (22:49)
--- NOTE | 2016-08-28 23:28 | MB ---
cc: KARINA JOSHI M.D. DATE OF CONSULTATION: 08/28/2016 REASON FOR CONSULTATION: Sickle cell crisis. PATIENT PROFILE The patient is a 56 year-old black female. She is . She has been twice. She was born in [facility]. She has lived in [place] for 30 years. 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 She does not smoke. She does not drink. HISTORY OF PRESENT ILLNESS: The patient is a 56 year-old female who has sickle-cell disease. In 2003, she had a hemoglobin electrophoresis with hemoglobin S 78%, hemoglobin 16%, hemoglobin A2 5.6%. 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 She has done remarkably well with her sickle-cell disease. It is very rare for her to require a hospitalization and during the past ten years she has been hospitalized only on a few occasions. At one point she had mild iron overload and was treated with Exjade. She has had skin ulcerations involving the lower extremities. Over the past several days she has had pain up and down the spine involving the lateral rib cage and to a lesser extent the lower extremities. She initially tried Aleve which was unsuccessful and then tried either Percocet or Lortab. The pain did not zeke and for this reason she went to the emergency room and has been hospitalized. LABORATORY STUDIES: Her laboratory studies on 08/28, hemoglobin 7.8, white count 13,000, platelets 244,000. Lytes, BUN, creatinine and liver function tests notable for a bilirubin of 5.0, AST 138, ALT 46, alk phos 291. X-RAYS: A chest x-ray on 08/27/2016 showed no acute disease. PAST SURGICAL HISTORY 1. Retinal artery surgery in 2016. 2. Cataract surgery. 3. Appendectomy and removal of ovarian cyst. 4. Tubal ligation. 5. Cholecystectomy. PAST MEDICAL HISTORY: 1. 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 2. The patient had DVT lower extremities in her teen years. She may have had a pulmonary emboli as well but is unsure. She was treated with Coumadin but has not required Coumadin for many years. 3. History of palpitations. She is followed by a interior design assistant, Dr. Orantes. MEDICATIONS 1. Baclofen 2. Prozac 3. Folic acid 4. Metoprolol 5. Prednisolone eye drops. ALLERGIES No allergies. FAMILY HISTORY Mother and father have sickle cell trait. REVIEW OF SYSTEMS Notable for pain along the spine, pain lower back, pain rib cage area and history of skin ulcers lower extremities which have healed. There has been no shortness of breath, hemoptysis, calf or thigh swelling. PHYSICAL EXAMINATION: Reveals a pleasant female. She appears comfortable. VITAL SIGNS: Blood pressure 120/60, respiratory rate 16, pulse 70 afebrile. O2 sat 97%. HEENT: Sclerae slightly icteric. No adenopathy. Heart: Regular rhythm. Lungs: Clear. Abdomen: Without hepatosplenomegaly. Extremities: No edema. Musculoskeletal: Mild tenderness lower back and mid thoracic spine. Neurologic: No focal weakness. Skin: There is evidence of healing over the ankle areas where the patient had previous ulceration. ASSESSMENT: The patient is a 56 year-old female who has sickle-cell disease. 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 At the moment this appears to be a crisis not dissimilar to previous crises. PLAN 1. Continue oxygen. 2. Continue same medicines. 3. At this point I do not think there is a need for transfusions MD BETTE Rock/HILLARY /10:43 PM /11:16 PM MTDAsmita
[2016-08-29] VITALS (9 sets, daily range): BP systolic 123–165; BP diastolic 58–76; PULSE 64–86; RESP 14–18; TEMP 97.9–98.8; O2SAT 92–100
[2016-08-29] MEDS: METOPROLOL TARTRATE 50 MG TAB PO SCH ×2 (05:53→14:13)
[2016-08-29 07:49] LABS: HEMATOCRIT 23.9 % (35.0-46.0); MEAN CELL VOLUME 75.9 FL (80.0-100.0); MEAN CORPUSCULAR HEMOGLOBIN 24.4 PG (27.0-34.0); MEAN CORPUSCULAR HGB CONC 32.2 % (32.0-36.0); PLATELET COUNT 255 TH/MM3 (150-450); RED BLOOD COUNT 3.14 MIL/MM3 (4.00-5.30); RED CELL DISTRIBUTION WIDTH 27.4 % (11.6-17.2); WHITE BLOOD COUNT 12.7 TH/MM3 (4.0-11.0)
[2016-08-29 08:23] LABS: ALKALINE PHOSPHATASE 276 U/L (45-117); ALT (GPT) 38 U/L (10-53); ANION GAP 10 MEQ/L (5-15); AST (GOT) 81 U/L (15-37); BICARBONATE 26.5 MEQ/L (21.0-32.0); BLOOD UREA NITROGEN 5 MG/DL (7-18); CHLORIDE 105 MEQ/L (98-107); GLOMERULAR FILTRATION RATE 84 ML/MIN (>89); POTASSIUM 3.8 MEQ/L (3.5-5.1); SODIUM (NA) 141 MEQ/L (136-145); TOTAL BILIRUBIN ADULT 5.1 MG/DL (0.2-1.0)
[2016-08-29 08:47] LABS: HEMO FLAGS AUTO DIFF
[2016-08-29] MEDS: ATROPINE SULFATE 1% OPHT SOLN 2 ML BTL RIGHT EYE SCH ×2 (09:00→22:28)
[2016-08-29] MEDS: SODIUM CHLORIDE 0.9% FLUSH 5 ML FLUSH FLUSH SCH ×2 (09:00→22:27)
[2016-08-29 09:19] LABS: BANDS 4 % (0-6); BASOPHILS 1 % (0-2); CORRECTED NUCLEATED RBC 527 /100 WBC (0-0); EOSINOPHILS 3 % (0-4); NEUTROPHIL # MANUAL DIFF 5.5 TH/MM3 (1.8-7.7); POLYCHROMASIA 5.6 % (0.0-1.9); POLYS (SEG NEUTROPHILS) 39 % (16-70); SICKLE CELLS 1+ (NORMAL); TARGET CELLS 3+ (NORMAL); WBC DIFF SAMPLE 100
[2016-08-29 09:20] LABS: PLATELET ESTIMATE SMEAR NORMAL (NORMAL); PLATELET MORPHOLOGY NORMAL (NORMAL); SCAN/DIFF FINAL DIFF MANUAL
[2016-08-29] MEDS: HYDROmorphone HCL PF 1 MG/ML VIAL IV PUSH PRN ×2 (09:45→16:55)
[2016-08-29] MEDS: DOCUSATE SODIUM 100 MG CAP PO SCH ×2 (09:46→22:26)
[2016-08-29] MEDS: prednisoLONE ACETATE 1% OPHT SUSP 5 ML BTL RIGHT EYE SCH ×3 (09:46→22:35)
[2016-08-29] MEDS: FOLIC ACID 1 MG TAB PO SCH (09:46)
[2016-08-29] MEDS: FLUoxetine HCL 10 MG CAP PO SCH (09:46)
--- NOTE | 2016-08-29 16:29 | HHI.PR ---
Subjective Remarks The patient had family at the bedside. The patient says that she still has significant pain but the pain medications help. She said her pain is mostly in the lumbar area today. She says she also has pain in her knees but she also needs bilateral knee replacements. She says she has not been eating well but would like to try eating some ensure. Objective Vitals Vital Signs Date Time Temp Pulse Resp B/P Pulse Ox O2 Delivery O2 Flow Rate FiO2 08/29/16 12:00 98.5 75 16 133/71 93 08/29/16 08:00 98.8 78 14 126/73 94 08/29/16 07:30 64 08/29/16 05:32 98 Nasal Cannula 1.00 08/29/16 04:00 98.2 72 16 123/58 98 08/29/16 00:00 97.9 86 18 165/76 100 08/28/16 20:00 98.2 70 16 127/61 97 08/28/16 20:00 64 08/28/16 16:34 74 18 118/56 98 Nasal Cannula 1 I/O 08/28/16 08/28/16 08/28/16 08/29/16 08/29/16 08/29/16 07:00 15:00 23:00 07:00 15:00 23:00 Intake Total 240 ml 240 ml 600 ml Balance 240 ml 240 ml 600 ml Intake Oral 240 ml 240 ml 600 ml # Voids 1 2 2 # Bowel Movements 0 Result Diagram: 08/29/16 0621 08/29/16 0621 Objective Remarks GENERAL: This is a well-nourished, well-developed patient, in no apparent distress. SKIN: No rashes, ecchymoses or lesions. Cool and dry. HEAD: Atraumatic. Normocephalic. No temporal or scalp tenderness. EYES: Pupils equal round and reactive. Extraocular motions intact. No scleral icterus. No injection or drainage. ENT: Nose without bleeding. Throat without erythema. Uvula midline. Airway patent. NECK: Trachea midline. No JVD or lymphadenopathy. Supple, nontender, no meningeal signs. CARDIOVASCULAR: Regular rate and rhythm without murmurs, gallops, or rubs. Reproducible chest pain upon palpation of the sternum. RESPIRATORY: Clear to auscultation. Breath sounds equal bilaterally. No wheezes , rales, or rhonchi. GASTROINTESTINAL: Abdomen soft, non-tender, nondistended. Bowel sounds active 4. MUSCULOSKELETAL: Extremities without clubbing, cyanosis, bilateral lower extremitie with trace edema. Tenderness to palpation of the lumbar spine. NEUROLOGICAL: Awake and alert. Oriented 3. Motor and sensory grossly within normal limits. Moves all extremities. Normal speech. PSYCH: Slightly flattened affect. Medications and IVs Current Medications Medications (Trade) Dose Ordered Sig/Milton Route Start Time Stop Time Status Last Admin (NS Flush) 2 ml UNSCH PRN FLUSH 08/28/16 18:15 (NS Flush) 2 ml BID FLUSH 08/28/16 21:00 08/28/16 20:07 (Zofran Inj) 4 mg Q6H PRN IVP 08/28/16 18:15 (Milk Of Magnleora Liq) 30 ml Q12H PRN PO 08/28/16 18:15 (Senokot) 17.2 mg Q12H PRN PO 08/28/16 18:15 (Lovenox Inj) 40 mg Q24H SQ 08/28/16 20:00 08/28/16 20:07 (Narcan Inj) 0.4 mg UNSCH PRN IV 08/28/16 18:15 (Atropine 1% Opth Soln) 1 drop BID RIGHT EYE 08/28/16 21:00 (Lioresal) 20 mg TID PRN PO 08/28/16 18:30 (PROzac) 10 mg DAILY PO 08/29/16 09:00 08/29/16 09:46 (Folate) 1 mg DAILY PO 08/29/16 09:00 08/29/16 09:46 (Lopressor) 50 mg BIDAC PO 08/29/16 07:00 08/29/16 14:13 (Pred Forte 1% Opth Susp) 1 drop BID RIGHT EYE 08/28/16 21:00 08/29/16 09:46 (Dilaudid Pf Inj) 1 mg Q3H PRN IV PUSH 08/28/16 18:45 08/29/16 09:45 (Roxicodone) 5 mg Q4H PRN PO 08/28/16 18:45 08/29/16 00:20 (Roxicodone) 10 mg Q4H PRN PO 08/28/16 18:45 08/29/16 14:13 Docusate Sodium 100 mg 100 mg BID PO 08/28/16 21:00 08/29/16 09:46 (NS 1000 ml Inj) 1,000 ml @ 100 mls/hr Q10H IV 08/28/16 18:45 08/28/16 20:01 A/P Problem List: (1) Sickle cell crisis ICD Code: D57.00 Status: Acute (2) Chest pain ICD Code: R07.9 Status: Acute (3) Sickle cell anemia ICD Code: D57.1 Status: Chronic Assessment and Plan Sickle cell disease The pt has pain in her back and LEs, as well as chest wall tenderness. Breathing comfortably at this time. Appreciate hematology consult. - IV fluids NS 100ml/hr. - Pain meds with a bowel regimen. - Monitor H&H and transfuse as needed. - oxygen as needed. - PT. Chest pain Chest x-ray showed no acute disease. Chest pain is reproducible upon palpation of the sternum. Likely musculoskeletal. The patient denies any shortness of breath or pleuritic chest pain at this time. - Continue pain management. Improved. Bilateral lower extremity edema The patient says she typically gets lower extremity edema with flares of her sickle cell disease. - Continue symptomatically treatment and monitor. Palpitations Has a loop recorder in place. - On metoprolol 50 mg twice a day. DVT prop Lovenox. Discharge Planning Awaiting clinical improvement. Problem Qualifiers (1) Sickle cell anemia: Qualified Code: D57.00 - Hb-SS disease with crisis Elieser Reyez DO Aug 29, 2016 16:29
--- NOTE | 2016-08-29 18:50 | PD.ONC.PN ---
Subjective Subjective Remarks pain slightly less. Objective Data Date Time Temp Pulse Resp B/P Pulse Ox O2 Delivery O2 Flow Rate FiO2 08/29/16 16:00 98.6 80 16 128/75 94 08/29/16 12:00 98.5 75 16 133/71 93 08/29/16 08:00 98.8 78 14 126/73 94 08/29/16 07:30 64 08/29/16 05:32 98 Nasal Cannula 1.00 08/29/16 04:00 98.2 72 16 123/58 98 08/29/16 00:00 97.9 86 18 165/76 100 08/28/16 20:00 98.2 70 16 127/61 97 08/28/16 20:00 64 08/29/16 08/29/16 08/29/16 07:00 15:00 23:00 Intake Total 240 ml 600 ml Balance 240 ml 600 ml Result Diagram: 08/29/1621 08/29/1621 Laboratory Results Laboratory Tests Test 08/29/16 06:21 White Blood Count 12.7 TH/MM3 Red Blood Count 3.14 MIL/MM3 Hemoglobin 7.7 GM/DL Hematocrit 23.9 % Mean Corpuscular Volume 75.9 FL Mean Corpuscular Hemoglobin 24.4 PG Mean Corpuscular Hemoglobin 32.2 % Concent Red Cell Distribution Width 27.4 % Platelet Count 255 TH/MM3 Mean Platelet Volume 10.5 FL Neutrophils (%) (Auto) % Lymphocytes (%) (Auto) % Monocytes (%) (Auto) % Eosinophils (%) (Auto) % Basophils (%) (Auto) % Neutrophils # (Auto) TH/MM3 Lymphocytes # (Auto) TH/MM3 Monocytes # (Auto) TH/MM3 Eosinophils # (Auto) TH/MM3 Basophils # (Auto) TH/MM3 CBC Comment AUTO DIFF Differential Total Cells 100 Counted Neutrophils % (Manual) 39 % Band Neutrophils % 4 % Lymphocytes % 42 % Monocytes % 11 % Eosinophils % 3 % Basophils % 1 % Neutrophils # (Manual) 5.5 TH/MM3 Nucleated Red Blood Cells 527 /100 WBC Differential Comment FINAL DIFF MANUAL Platelet Estimate NORMAL Platelet Morphology Comment NORMAL Polychromasia 5.6 % Basophilic Stippling FAINT Sickle Cells 1+ Target Cells 3+ Sodium Level 141 MEQ/L Potassium Level 3.8 MEQ/L Chloride Level 105 MEQ/L Carbon Dioxide Level 26.5 MEQ/L Anion Gap 10 MEQ/L Blood Urea Nitrogen 5 MG/DL Creatinine 0.85 MG/DL Estimat Glomerular Filtration 84 ML/MIN Rate Random Glucose 78 MG/DL Calcium Level 8.5 MG/DL Total Bilirubin 5.1 MG/DL Aspartate Amino Transf 81 U/L (AST/SGOT) Alanine Aminotransferase 38 U/L (ALT/SGPT) Alkaline Phosphatase 276 U/L Total Protein 7.5 GM/DL Albumin 3.4 GM/DL Administered Medications Medications (Trade) Dose Ordered Sig/Milton Route PRN Reason Start Time Stop Time Status Last Admin Dose Admin IV Flush (NS Flush) 2 ml BID FLUSH 08/28/16 21:00 08/28/16 20:07 Enoxaparin Sodium (Lovenox Inj) 40 mg Q24H SQ 08/28/16 20:00 08/28/16 20:07 Fluoxetine HCl (PROzac) 10 mg DAILY PO 08/29/16 09:00 08/29/16 09:46 Folic Acid (Folate) 1 mg DAILY PO 08/29/16 09:00 08/29/16 09:46 Metoprolol Tartrate (Lopressor) 50 mg BIDAC PO 08/29/16 07:00 08/29/16 14:13 Prednisolone Acetate (Pred Forte 1% Opth Susp) 1 drop BID RIGHT EYE 08/28/16 21:00 08/29/16 09:46 Hydromorphone HCl (Dilaudid Pf Inj) 1 mg Q3H PRN IV PUSH Breakthrough pain 08/28/16 18:45 08/29/16 16:55 Oxycodone HCl (Roxicodone) 5 mg Q4H PRN PO pain 1-5 08/28/16 18:45 08/29/16 00:20 Oxycodone HCl (Roxicodone) 10 mg Q4H PRN PO pain 6-10 08/28/16 18:45 08/29/16 14:13 Docusate Sodium 100 mg 100 mg BID PO 08/28/16 21:00 08/29/16 09:46 Sodium Chloride (NS 1000 ml Inj) 1,000 ml @ 100 mls/hr Q10H IV 08/28/16 18:45 08/28/16 20:01 Objective Remarks GENERAL: Well-nourished, well-developed patient. SKIN: Warm and dry. stasis changes at ankles. HEAD: Normocephalic. EYES: No scleral icterus. No injection or drainage. NECK: Supple, trachea midline. No JVD or lymphadenopathy. LYMPHATIC: No adenopathy. CARDIOVASCULAR: Regular rate and rhythm without murmurs. RESPIRATORY: Breath sounds equal bilaterally. No accessory muscle use. GASTROINTESTINAL: Abdomen soft, non-tender, nondistended. EXTREMITIES: No cyanosis, or edema. MUSCULOSKELETAL: Adequate muscle tone. NEUROLOGICAL: No obvious focal deficit. Awake, alert, and oriented x3. PSYCHIATRIC: Appropriate mood and affect; insight and judgment normal. Assessment/Plan Assessment 1: crisis slowly improving and suspect she will be ready for discharge in several days. would still hold on transfusion, continue same pain medications and oxygen. She is cheerful and expect that she will continue to improve. Dominic Whyte MD Aug 29, 2016 18:50
[2016-08-29] MEDS: ENOXAPARIN SODIUM 40 MG/0.4 ML SYRINGE SQ SCH (22:27)
[2016-08-29] MEDS: SODIUM CHLOR 0.9% 1000 ML INJ 1,000 ML IV SCH ×2 (22:31→22:34)
[2016-08-30] VITALS: BP 136/66; PULSE 76; RESP 16; TEMP 98.3; O2SAT 99
[2016-08-30] MEDS: HYDROmorphone HCL PF 1 MG/ML VIAL IV PUSH PRN ×3 (01:03→16:00)
[2016-08-30 04:00] VITALS: BP 133/64; PULSE 75; RESP 16; TEMP 98.8; O2SAT 100
[2016-08-30] MEDS: METOPROLOL TARTRATE 50 MG TAB PO SCH ×2 (06:10→15:59)
[2016-08-30 08:15] VITALS: BP 132/65; PULSE 69; RESP 16; TEMP 98.6; O2SAT 92
[2016-08-30 08:37] LABS: HEMATOCRIT 24.5 % (35.0-46.0); MEAN CELL VOLUME 77.7 FL (80.0-100.0); MEAN CORPUSCULAR HEMOGLOBIN 24.1 PG (27.0-34.0); PLATELET COUNT 219 TH/MM3 (150-450); RED BLOOD COUNT 3.16 MIL/MM3 (4.00-5.30); RED CELL DISTRIBUTION WIDTH 26.2 % (11.6-17.2); WHITE BLOOD COUNT 17.5 TH/MM3 (4.0-11.0)
[2016-08-30 08:47] LABS: ALKALINE PHOSPHATASE 264 U/L (45-117); TOTAL BILIRUBIN ADULT 5.4 MG/DL (0.2-1.0)
[2016-08-30] MEDS: DOCUSATE SODIUM 100 MG CAP PO SCH ×2 (08:51→20:03)
[2016-08-30] MEDS: FLUoxetine HCL 10 MG CAP PO SCH (08:51)
[2016-08-30] MEDS: FOLIC ACID 1 MG TAB PO SCH (08:51)
[2016-08-30] MEDS: prednisoLONE ACETATE 1% OPHT SUSP 5 ML BTL RIGHT EYE SCH ×2 (08:53→20:03)
[2016-08-30] MEDS: ATROPINE SULFATE 1% OPHT SOLN 2 ML BTL RIGHT EYE SCH ×2 (08:54→19:55)
[2016-08-30] MEDS: SODIUM CHLORIDE 0.9% FLUSH 5 ML FLUSH FLUSH SCH ×2 (08:56→20:03)
[2016-08-30 08:57] LABS: ALT (GPT) 42 U/L (10-53); ANION GAP 10 MEQ/L (5-15); AST (GOT) 89 U/L (15-37); BICARBONATE 26.2 MEQ/L (21.0-32.0); CHLORIDE 106 MEQ/L (98-107); GLOMERULAR FILTRATION RATE 121 ML/MIN (>89); MAGNESIUM 1.7 MG/DL (1.5-2.5); POTASSIUM 3.9 MEQ/L (3.5-5.1); SODIUM (NA) 142 MEQ/L (136-145)
[2016-08-30 08:59] LABS: REVIEW FLAG FINAL
[2016-08-30 09:03] LABS: BLOOD UREA NITROGEN 3 MG/DL (7-18)
[2016-08-30 12:30] VITALS: BP 135/64; PULSE 75; RESP 16; TEMP 98.7; O2SAT 99
--- NOTE | 2016-08-30 15:59 | HHI.PR ---
Subjective Remarks The patient said that the oxycodone wasn't working well. She says the Dilaudid was working. She wanted to know why her oxygen level keeps dropping low. She says her breathing is comfortable at this time. She has not been eating very much. Objective Vitals Vital Signs Date Time Temp Pulse Resp B/P Pulse Ox O2 Delivery O2 Flow Rate FiO2 08/30/16 12:30 98.7 75 16 135/64 99 08/30/16 08:15 98.6 69 16 132/65 92 08/30/16 04:00 98.8 75 16 133/64 100 08/30/16 00:00 98.3 76 16 136/66 99 08/29/16 20:00 98.6 72 16 129/60 98 08/29/16 19:29 92 Nasal Cannula 3.00 08/29/16 16:00 98.6 80 16 128/75 94 I/O 08/29/16 08/29/16 08/29/16 08/30/16 08/30/16 08/30/16 07:00 15:00 23:00 07:00 15:00 23:00 Intake Total 240 ml 600 ml 1400 ml 990 ml 908 ml Balance 240 ml 600 ml 1400 ml 990 ml 908 ml Intake Oral 240 ml 600 ml 600 ml 240 ml IV Total 800 ml 750 ml 908 ml # Voids 2 2 2 2 # Bowel Movements 0 Result Diagram: 08/30/16 0642 08/30/16 0642 Objective Remarks GENERAL: This is a well-nourished, well-developed patient, in no apparent distress. SKIN: No rashes, ecchymoses or lesions. Cool and dry. HEAD: Atraumatic. Normocephalic. No temporal or scalp tenderness. EYES: Pupils equal round and reactive. Extraocular motions intact. No scleral icterus. No injection or drainage. ENT: Nose without bleeding. Throat without erythema. Uvula midline. Airway patent. NECK: Trachea midline. No JVD or lymphadenopathy. Supple, nontender, no meningeal signs. CARDIOVASCULAR: Regular rate and rhythm without murmurs, gallops, or rubs. Reproducible chest pain upon palpation of the sternum. RESPIRATORY: Crackles at the bases. GASTROINTESTINAL: Abdomen soft, non-tender, nondistended. Bowel sounds active 4. MUSCULOSKELETAL: Extremities without clubbing, cyanosis, bilateral lower extremitie with trace edema. Tenderness to palpation of the lumbar spine. NEUROLOGICAL: Awake and alert. Oriented 3. Motor and sensory grossly within normal limits. Moves all extremities. Normal speech. PSYCH: Flattened affect. Medications and IVs Current Medications Medications (Trade) Dose Ordered Sig/Milton Route Start Time Stop Time Status Last Admin (NS Flush) 2 ml UNSCH PRN FLUSH 08/28/16 18:15 (NS Flush) 2 ml BID FLUSH 08/28/16 21:00 08/28/16 20:07 (Zofran Inj) 4 mg Q6H PRN IVP 08/28/16 18:15 (Milk Of Magnesia Liq) 30 ml Q12H PRN PO 08/28/16 18:15 (Senokot) 17.2 mg Q12H PRN PO 08/28/16 18:15 (Lovenox Inj) 40 mg Q24H SQ 08/28/16 20:00 08/29/16 22:27 (Narcan Inj) 0.4 mg UNSCH PRN IV 08/28/16 18:15 (Atropine 1% Opth Soln) 1 drop BID RIGHT EYE 08/28/16 21:00 (Lioresal) 20 mg TID PRN PO 08/28/16 18:30 (PROzac) 10 mg DAILY PO 08/29/16 09:00 08/30/16 08:51 (Folate) 1 mg DAILY PO 08/29/16 09:00 08/30/16 08:51 (Lopressor) 50 mg BIDAC PO 08/29/16 07:00 08/30/16 06:10 (Pred Forte 1% Opth Susp) 1 drop BID RIGHT EYE 08/28/16 21:00 08/30/16 08:53 (Dilaudid Pf Inj) 1 mg Q3H PRN IV PUSH 08/28/16 18:45 08/30/16 08:52 (Roxicodone) 5 mg Q4H PRN PO 08/28/16 18:45 08/29/16 00:20 (Roxicodone) 10 mg Q4H PRN PO 08/28/16 18:45 08/30/16 13:56 Docusate Sodium 100 mg 100 mg BID PO 08/28/16 21:00 08/30/16 08:51 (NS 1000 ml Inj) 1,000 ml @ 100 mls/hr Q10H IV 08/28/16 18:45 08/29/16 22:34 A/P Problem List: (1) Sickle cell crisis ICD Code: D57.00 Status: Acute (2) Chest pain ICD Code: R07.9 Status: Acute (3) Sickle cell anemia ICD Code: D57.1 Status: Chronic Assessment and Plan Sickle cell disease The pt has pain in her back and LEs, as well as chest wall tenderness. Breathing comfortably at this time. Appreciate hematology consult. - DC IV fluids. - Pain meds with a bowel regimen. - Monitor H&H and transfuse as needed. - oxygen as needed. - PT. Chest pain Chest x-ray showed no acute disease. Chest pain is reproducible upon palpation of the sternum. Likely musculoskeletal. The patient denies any shortness of breath or pleuritic chest pain at this time. - Continue pain management. - Repeat chest x-ray. Hypoxemia The patient is currently requiring oxygen. She has crackles on exam. - DC IV fluids. - Chest x-ray requested. - Oxygen and nebs as needed. - Would pursue VQ scan if chest x-ray unremarkable and patient is still hypoxemic. - Check an ABG. Bilateral lower extremity edema The patient says she typically gets lower extremity edema with flares of her sickle cell disease. - Continue symptomatically treatment and monitor. Palpitations Has a loop recorder in place. - On metoprolol 50 mg twice a day. DVT prop Lovenox. Discharge Planning Awaiting clinical improvement. Problem Qualifiers (1) Sickle cell anemia: Qualified Code: D57.00 - Hb-SS disease with crisis Elieser Reyez DO Aug 30, 2016 15:59
[2016-08-30 16:00] VITALS: BP 139/67; PULSE 75; RESP 16; TEMP 98.9; O2SAT 97
--- NOTE | 2016-08-30 16:36 | RADRPT ---
EXAM DATE/TIME: 08/30/2016 16:12 [facility] COMPARISON: CHEST SINGLE AP, August 27, 2016, 12:43. INDICATIONS : Dyspnea. MEDICAL HISTORY : Sickle Cell disease. Respiratory issues. SURGICAL HISTORY : Appendectomy. Cholecystectomy. ENCOUNTER: Initial ACUITY: 3 days PAIN SCORE: 0/10 LOCATION: Bilateral chest FINDINGS: The heart size is normal. There is a loop recorder seen. There is a left subclavian line in place wit h the tip overlying the left innominate vein. The lungs are grossly clear. There is sclerosis of the humeral heads. CONCLUSION: No acute disease. Eric Silva MD on August 30, 2016 at 16:33 Board Certified Radiologist. This report was verified electronically.
[2016-08-30 16:38] LABS: BLOOD GAS CARBOXYHEMOGLOBIN 5.2 % (0-4); BLOOD GAS HCO3 26 mmol/L (22-26); BLOOD GAS METHEMOGLOBIN 2.8 % (0-2); BLOOD GAS O2 HGB SATURATION 89 % (90-100); BLOOD GAS OXYGEN CONTENT 9.3 Vol % (12.0-20.0); BLOOD GAS PCO2 44 mmHg (38-42); BLOOD GAS PO2 87 mmHg (61-120); BLOOD GAS TOTAL HGB 7.3 G/DL (12.0-16.0); TEMP CORR TO 98.6
[2016-08-30 16:41] LABS: CRITICAL VALUE YES; DRAW SITE RT RADIAL; LITER FLOW 3 L/M; NUMBER OF ARTERIAL PUNCTURES 1; OXYGEN DEVICE NASAL CANNULA; STAT NO; ULNAR PULSE PRESENT
[2016-08-30] MEDS: ENOXAPARIN SODIUM 40 MG/0.4 ML SYRINGE SQ SCH (20:02)
[2016-08-30 20:05] VITALS: PULSE 66
[2016-08-31] VITALS (8 sets, daily range): BP systolic 110–146; BP diastolic 58–63; PULSE 65–76; RESP 16–18; TEMP 97.6–98.4; O2SAT 94–98
[2016-08-31] MEDS: METOPROLOL TARTRATE 50 MG TAB PO SCH ×2 (06:15→16:53)
[2016-08-31 07:24] LABS: HEMATOCRIT 26.6 % (35.0-46.0); MEAN CELL VOLUME 76.5 FL (80.0-100.0); MEAN CORPUSCULAR HEMOGLOBIN 23.5 PG (27.0-34.0); MEAN CORPUSCULAR HGB CONC 30.7 % (32.0-36.0); PLATELET COUNT 245 TH/MM3 (150-450); RED BLOOD COUNT 3.48 MIL/MM3 (4.00-5.30); RED CELL DISTRIBUTION WIDTH 24.6 % (11.6-17.2); WHITE BLOOD COUNT 17.1 TH/MM3 (4.0-11.0)
[2016-08-31 07:25] LABS: HEMO FLAGS AUTO DIFF
[2016-08-31 07:47] LABS: ALT (GPT) 38 U/L (10-53); ANION GAP 9 MEQ/L (5-15); AST (GOT) 75 U/L (15-37); BICARBONATE 29.3 MEQ/L (21.0-32.0); BLOOD UREA NITROGEN 3 MG/DL (7-18); CHLORIDE 104 MEQ/L (98-107); GLOMERULAR FILTRATION RATE 139 ML/MIN (>89); POTASSIUM 3.6 MEQ/L (3.5-5.1); SODIUM (NA) 142 MEQ/L (136-145)
[2016-08-31 07:51] LABS: ALKALINE PHOSPHATASE 256 U/L (45-117); TOTAL BILIRUBIN ADULT 4.6 MG/DL (0.2-1.0)
[2016-08-31 08:19] LABS: BANDS 8 % (0-6); CORRECTED NUCLEATED RBC 612 /100 WBC (0-0); EOSINOPHILS 2 % (0-4); NEUTROPHIL # MANUAL DIFF 9.9 TH/MM3 (1.8-7.7); POLYS (SEG NEUTROPHILS) 50 % (16-70); TARGET CELLS 2+ (NORMAL); WBC DIFF SAMPLE 50
[2016-08-31 08:20] LABS: HOWELL-JOLLY BODIES PRESENT (NONE SEEN); POLYCHROMASIA 7.5 % (0.0-1.9)
[2016-08-31 08:21] LABS: ACANTHOCYTES 1+ (NORMAL); PLATELET ESTIMATE SMEAR NORMAL (NORMAL); PLATELET MORPHOLOGY ENLARGED (NORMAL); SICKLE CELLS 1+ (NORMAL)
[2016-08-31 08:23] LABS: SCAN/DIFF FINAL DIFF MANUAL
[2016-08-31] MEDS: FOLIC ACID 1 MG TAB PO SCH (09:44)
[2016-08-31] MEDS: FLUoxetine HCL 10 MG CAP PO SCH (09:44)
[2016-08-31] MEDS: DOCUSATE SODIUM 100 MG CAP PO SCH (09:44)
[2016-08-31] MEDS: ATROPINE SULFATE 1% OPHT SOLN 2 ML BTL RIGHT EYE SCH (09:45)
[2016-08-31] MEDS: SODIUM CHLORIDE 0.9% FLUSH 5 ML FLUSH FLUSH SCH (09:45)
[2016-08-31] MEDS: prednisoLONE ACETATE 1% OPHT SUSP 5 ML BTL RIGHT EYE SCH (09:46)
[2016-08-31] MEDS: HYDROmorphone HCL PF 1 MG/ML VIAL IV PUSH PRN (11:28)
--- NOTE | 2016-08-31 12:33 | RADRPT ---
EXAM DATE/TIME: 08/31/2016 11:29 [facility] COMPARISON: No previous studies available for comparison. INDICATIONS : Shortness of breath and hypoxic. DOSE: 1.2 mCi Tc99m DTPA 8.8 mCi Tc99m MAA MEDICAL HISTORY : Sickle cell disease. Hypertension. Cardiac loop recorder. SURGICAL HISTORY : Cholecystectomy. Tubal ligation. Colon resection. ENCOUNTER: Initial ACUITY: 2 days PAIN SCALE: 2/10 LOCATION: Bilateral chest TECHNIQUE: Following five minutes of tidal breathing of DTPA aerosol, planar images of the lungs were performed in eight projections. The patient was then injected with MAA, and eight-view perfusio n scan was performed. FINDINGS: There is a homogeneous pattern of aerosol delivery to the periphery of both lungs. No focal ventilat ory defects are seen. The perfusion lung scan demonstrates a homogenous pattern of uptake in both lungs. No segmental or s ubsegmental defects are seen. CONCLUSION: Low probability for pulmonary embolism. Hossein Smith MD FACR on August 31, 2016 at 12:31 Board Certified Radiologist. This report was verified electronically.
--- NOTE | 2016-08-31 13:47 | HHI.DCPOC ---
Discharge Care Plan Diagnosis: (1) Sickle cell crisis (2) Chest pain (3) Bronchitis (4) Sickle cell anemia (5) General weakness (6) SOB (shortness of breath) Goals to Promote Your Health * To prevent worsening of your condition and complications * To maintain your health at the optimal level Directions to Meet Your Goals Take your medications as prescribed Follow your dietary instruction Follow activity as directed Keep your appointments as scheduled Take your immunizations and boosters as scheduled If your symptoms worsen call your PCP, if no PCP go to Urgent Care Center or Emergency Room Smoking is Dangerous to Your Health. Avoid second hand smoke Call the 24-hour hour crisis hotline for domestic abuse at Elieser Reyez DO Aug 31, 2016 13:47
--- NOTE | 2016-08-31 13:56 | HHI.DS ---
Discharge Summary Admission Date Aug 28, 2016 at 16:47 Discharge Date: Aug 31, 2016 Admitting Diagnosis sickle cell crisis (1) Sickle cell crisis ICD Code: D57.00 Diagnosis: Principal (2) Chest pain ICD Code: R07.9 (3) Sickle cell anemia ICD Code: D57.1 (4) SOB (shortness of breath) ICD Code: R06.02 Procedures None Brief History - From Admission Patient is a 56-year-old female with primary medical history of sickle cell, DVTs, arthritis who came into the hospital today for complaints of increasing chest pain, back pain, bilateral lower extremity pain. Pain is rated as 7/10, radiating towards her hips, unrelieved by pain medication Percocet and rest. Patient states that she started to have pain last Saturday, and it was worsening. She also noted that she has left lateral chest pain which is something new for her. Left lateral chest pain is sharp, makes her short of breath and unable to take deep breaths. She usually manages her pain with ibuprofen and rest, Percocet use on occasion. She was seen yesterday in the ED for same complaints and was discharged home with pain medication. She came back to the hospital secondary to intermittent sharp pain on the left lateral chest. Patient reports she has a history of DVTs bilateral lower extremity she, previously on Coumadin from to 2005. States that in 2005 she had ovarian cyst surgery and when she went home they did not restart her Coumadin but was placed on Lovenox for 7 days. She has not taken Coumadin since then. Patient reports bilateral lower extremity pain with trace edema right greater than the left. She usually elevates her legs to relieve the edema. Denies cough, congestion, headaches, dizziness. Denies fevers, chills, n /v/d. Denies abdominal cramping, dysuria, hematuria. Patient also follows with Dr. Urbina and has a loop recorder in place secondary to palpitations. She is due to be seen in October. Patient also being followed by oncology secondary to sickle cell. WBC 13.9, hemoglobin 7.8, hematocrit 24.7. Potassium 5.3, total bilirubin 5.0, AST 138, AST 46, alkaline phosphatase 291. CK 43. Troponin less than 0.02 08/27/16 Chest x-ray no acute disease. The patient says that her sickle cell pain seems worse at this time. She has pain in her bilateral lower extremities and also at the chest. She says the chest pain is worse on the left side and gets worse with movements and positioning. She does not have shortness of breath at this time. She says she was scheduled to see a new oncologist but that appointment is not until October. She says the Dilaudid is helping with her pain. CBC/BMP: 08/31/16 0647 08/31/16 0647 Significant Findings Laboratory Tests Test 08/28/16 08/28/16 08/28/16 08/28/16 14:00 14:25 15:07 15:27 Reticulocyte Count 16.6 % (0.4-3.0) Absolute Reticulocyte Count 574.2 MIL/L (20.0-150.0) Troponin I LESS THAN 0.02 NG/ML (0.02-0.05) Activated Partial 22.9 SEC Thromboplast Time (24.3-30.1) Potassium Level 5.3 MEQ/L (3.5-5.1) Blood Urea Nitrogen 6 MG/DL (7-18) Total Bilirubin 5.0 MG/DL (0.2-1.0) Aspartate Amino Transf 138 U/L (15-37) (AST/SGOT) Alkaline Phosphatase 291 U/L (45-117) Urine Turbidity HAZY (CLEAR) Urine Urobilinogen 4.0 MG/DL (LESS THAN 2.0) Urine Leukocyte Esterase MOD (NEG) Urine WBC 7 /hpf (0-5) White Blood Count 13.9 TH/MM3 (4.0-11.0) Red Blood Count 3.24 MIL/MM3 (4.00-5.30) Hemoglobin 7.8 GM/DL (11.6-15.3) Hematocrit 24.7 % (35.0-46.0) Mean Corpuscular Volume 76.1 FL (80.0-100.0) Mean Corpuscular Hemoglobin 24.0 PG (27.0-34.0) Mean Corpuscular Hemoglobin 31.6 % Concent (32.0-36.0) Red Cell Distribution Width 27.3 % (11.6-17.2) Monocytes (%) (Auto) 11.5 % (0.0-8.0) Neutrophils # (Auto) 7.9 TH/MM3 (1.8-7.7) Monocytes # (Auto) 1.6 TH/MM3 (0-0.9) Basophils # (Auto) 0.3 TH/MM3 (0-0.2) Band Neutrophils % 8 % (0-6) Neutrophils # (Manual) 8.2 TH/MM3 (1.8-7.7) Myelocytes 2 % (0-0) Promyelocytes 1 % (0-0) Nucleated Red Blood Cells 140 /100 WBC (0-0) Toxic Vacuolation PRESENT (NONE SEEN) Platelet Morphology Comment ENLARGED (NORMAL) Polychromasia 5.5 % (0.0-1.9) Sickle Cells 2+ (NORMAL) Target Cells 1+ (NORMAL) Stomatocytes 1+ (NORMAL) Test 08/29/16 08/30/16 08/30/16 08/31/16 06:21 06:42 16:30 06:47 White Blood Count 12.7 TH/MM3 17.5 TH/MM3 17.1 TH/MM3 (4.0-11.0) (4.0-11.0) (4.0-11.0) Red Blood Count 3.14 MIL/MM3 3.16 MIL/MM3 3.48 MIL/MM3 (4.00-5.30) (4.00-5.30) (4.00-5.30) Hemoglobin 7.7 GM/DL 7.6 GM/DL 8.2 GM/DL (11.6-15.3) (11.6-15.3) (11.6-15.3) Hematocrit 23.9 % 24.5 % 26.6 % (35.0-46.0) (35.0-46.0) (35.0-46.0) Mean Corpuscular Volume 75.9 FL 77.7 FL 76.5 FL (80.0-100.0) (80.0-100.0) (80.0-100.0) Mean Corpuscular Hemoglobin 24.4 PG 24.1 PG 23.5 PG (27.0-34.0) (27.0-34.0) (27.0-34.0) Red Cell Distribution Width 27.4 % 26.2 % 24.6 % (11.6-17.2) (11.6-17.2) (11.6-17.2) Monocytes % 11 % (0-8) Nucleated Red Blood Cells 527 /100 WBC 612 /100 WBC (0-0) (0-0) Polychromasia 5.6 % (0.0-1.9) 7.5 % (0.0-1.9) Basophilic Stippling FAINT (NORMAL) MOD (NORMAL) Sickle Cells 1+ (NORMAL) 1+ (NORMAL) Target Cells 3+ (NORMAL) 2+ (NORMAL) Blood Urea Nitrogen 5 MG/DL (7-18) 3 MG/DL (7-18) 3 MG/DL (7-18) Estimat Glomerular Filtration 84 ML/MIN (>89) Rate Total Bilirubin 5.1 MG/DL 5.4 MG/DL 4.6 MG/DL (0.2-1.0) (0.2-1.0) (0.2-1.0) Aspartate Amino Transf 81 U/L (15-37) 89 U/L (15-37) 75 U/L (15-37) (AST/SGOT) Alkaline Phosphatase 276 U/L 264 U/L 256 U/L (45-117) (45-117) (45-117) Mean Corpuscular Hemoglobin 31.0 % 30.7 % Concent (32.0-36.0) (32.0-36.0) Albumin 3.3 GM/DL (3.4-5.0) Blood Gas Oxygen Saturation 89 % (90-100) Arterial Blood Partial 44 mmHg (38-42) Pressure CO2 Arterial Blood Oxygen Content 9.3 Vol % (12.0-20.0) Arterial Blood 5.2 % (0-4) Carboxyhemoglobin Arterial Blood Methemoglobin 2.8 % (0-2) Blood Gas Hemoglobin 7.3 G/DL (12.0-16.0) Band Neutrophils % 8 % (0-6) Neutrophils # (Manual) 9.9 TH/MM3 (1.8-7.7) Platelet Morphology Comment ENLARGED (NORMAL) Acanthocytes 1+ (NORMAL) Imaging Last Impressions Lung Scan-VQ Nuclear Medicine 08/31/16 0000 Signed Impressions: Service Date/Time: Wednesday, August 31, 2016 11:29 - CONCLUSION: Low probability for pulmonary embolism. Hossein Smith MD FACR Chest X-Ray 08/30/16 0000 Signed Impressions: Service Date/Time: August 16:12 - CONCLUSION: No acute disease. Eric Silva MD PE at Discharge GENERAL: This is a well-nourished, well-developed patient, in no apparent distress. SKIN: No rashes, ecchymoses or lesions. Cool and dry. HEAD: Atraumatic. Normocephalic. No temporal or scalp tenderness. EYES: Pupils equal round and reactive. Extraocular motions intact. No scleral icterus. No injection or drainage. ENT: Nose without bleeding. Throat without erythema. Uvula midline. Airway patent. NECK: Trachea midline. No JVD or lymphadenopathy. Supple, nontender, no meningeal signs. CARDIOVASCULAR: Regular rate and rhythm without murmurs, gallops, or rubs. Reproducible chest pain upon palpation of the sternum. RESPIRATORY: Slight crackles at the bases. GASTROINTESTINAL: Abdomen soft, non-tender, nondistended. Bowel sounds active 4. MUSCULOSKELETAL: Extremities without clubbing, cyanosis, bilateral lower extremitie with trace edema. Tenderness to palpation of the lumbar spine. NEUROLOGICAL: Awake and alert. Oriented 3. Motor and sensory grossly within normal limits. Moves all extremities. Normal speech. PSYCH: Slightly flattened affect. Pt update on day of discharge The pt was feeling better and wanted to go home. She said she had plenty of pain meds. Discussed with nursing. Hospital Course Sickle cell disease The pt has pain in her back and LEs, as well as chest wall tenderness. Hematology was consulted. She received pain control, oxygen and IVFs. She did not require a blood transfusion. She worked with physical therapy. She will follow up with hematology as an outpt. She will continue with her home pain meds as needed. Hypoxemia The patiemt required oxygen. She had crackles on exam. We d/c IV fluids. Repeat CXR unremarkable. She received oxygen and nebs as needed. ABG with 02 saturation of 89%. V/Q scan was done which was low probability for PE. The pt had a home oxygen walk test done prior to discharge and she will not require home oxygen. Bilateral lower extremity edema The patient says she typically gets lower extremity edema with flares of her sickle cell disease. She received symptomatic treatment. Pt Condition on Discharge: Fair Discharge Disposition: Discharge Home Discharge Time: > 30 minutes Discharge Instructions DIET: Follow Instructions for: As Tolerated, No Restrictions Activities you can perform: Weight Bearing as [place] Follow up Referrals: Oncology - 1 Week PCP Follow-up - 1 Week Continued Medications: Atropine Opth Drops (Atropine Opth Drops) 1% Soln 1 DROP RIGHT EYE BID Infection #2 Ref 0 ML Baclofen (Baclofen) 20 Mg Tab 20 MG PO TID PRN CRAMPS Ref 0 TAB Fluoxetine (Fluoxetine) 10 Mg Cap 10 MG PO DAILY #30 Ref 0 CAP Folic Acid (Folate) 1 Mg Tab 1 MG PO DAILY Nutritional Supplement Ref 0 TAB Metoprolol Tartrate (Metoprolol Tartrate) 50 Mg Tab 50 MG PO BIDAC #60 Ref 0 TAB Prednisolone Acetate Opth Drops (Omnipred Opth Drops) 1% Susp 1 DROP RIGHT EYE BID Inflammation #1 Ref 0 BOTTLE Elieser Reyez DO Aug 31, 2016 13:56
--- NOTE | 2016-08-31 15:39 | HHI.PR ---
Subjective Remarks The pt was resting comfortably. She said she would like to go home. She had no acute complaints. Discussed with nursing. Objective Vitals Vital Signs Date Time Temp Pulse Resp B/P Pulse Ox O2 Delivery O2 Flow Rate FiO2 08/31/16 12:30 98.2 66 16 132/60 94 08/31/16 08:00 97.9 74 16 110/58 98 08/31/16 04:00 97.6 65 18 126/60 98 08/31/16 00:00 97.9 76 18 146/63 97 08/30/16 20:05 66 08/30/16 16:00 98.9 75 16 139/67 97 I/O 08/30/16 08/30/16 08/30/16 08/31/16 08/31/16 08/31/16 07:00 15:00 23:00 07:00 15:00 23:00 Intake Total 990 ml 720 ml 938 ml 510 ml Balance 990 ml 720 ml 938 ml 510 ml Intake Oral 240 ml 720 ml 480 ml IV Total 750 ml 938 ml 30 ml # Voids 2 4 2 Result Diagram: 08/31/16 0647 08/31/16 0647 Imaging Last Impressions Lung Scan-VQ Nuclear Medicine 08/31/16 0000 Signed Impressions: Service Date/Time: Wednesday, August 31, 2016 11:29 - CONCLUSION: Low probability for pulmonary embolism. Hossein Smith MD FACR Chest X-Ray 08/30/16 0000 Signed Impressions: Service Date/Time: August 16:12 - CONCLUSION: No acute disease. Eric Silva MD Objective Remarks GENERAL: This is a well-nourished, well-developed patient, in no apparent distress. SKIN: No rashes, ecchymoses or lesions. Cool and dry. HEAD: Atraumatic. Normocephalic. No temporal or scalp tenderness. EYES: Pupils equal round and reactive. Extraocular motions intact. No scleral icterus. No injection or drainage. ENT: Nose without bleeding. Throat without erythema. Uvula midline. Airway patent. NECK: Trachea midline. No JVD or lymphadenopathy. Supple, nontender, no meningeal signs. CARDIOVASCULAR: Regular rate and rhythm without murmurs, gallops, or rubs. Reproducible chest pain upon palpation of the sternum. RESPIRATORY: Slight crackles at the bases. GASTROINTESTINAL: Abdomen soft, non-tender, nondistended. Bowel sounds active 4. MUSCULOSKELETAL: Extremities without clubbing, cyanosis, bilateral lower extremitie with trace edema. Tenderness to palpation of the lumbar spine. NEUROLOGICAL: Awake and alert. Oriented 3. Motor and sensory grossly within normal limits. Moves all extremities. Normal speech. PSYCH: Slightly flattened affect. Procedures None Medications and IVs Current Medications Medications (Trade) Dose Ordered Sig/[place] Route Start Time Stop Time Status Last Admin (NS Flush) 2 ml UNSCH PRN FLUSH 08/28/16 18:15 (NS Flush) 2 ml BID FLUSH 08/28/16 21:00 08/31/16 09:45 (Zofran Inj) 4 mg Q6H PRN IVP 08/28/16 18:15 (Milk Of Magnesia Liq) 30 ml Q12H PRN PO 08/28/16 18:15 (Senokot) 17.2 mg Q12H PRN PO 08/28/16 18:15 (Lovenox Inj) 40 mg Q24H SQ 08/28/16 20:00 08/30/16 20:02 (Narcan Inj) 0.4 mg UNSCH PRN IV 08/28/16 18:15 (Atropine 1% Opth Soln) 1 drop BID RIGHT EYE 08/28/16 21:00 08/31/16 09:45 (Lioresal) 20 mg TID PRN PO 08/28/16 18:30 (PROzac) 10 mg DAILY PO 08/29/16 09:00 08/31/16 09:44 (Folate) 1 mg DAILY PO 08/29/16 09:00 08/31/16 09:44 (Lopressor) 50 mg BIDAC PO 08/29/16 07:00 08/31/16 06:15 (Pred Forte 1% Opth Susp) 1 drop BID RIGHT EYE 08/28/16 21:00 08/31/16 09:46 (Dilaudid Pf Inj) 1 mg Q3H PRN IV PUSH 08/28/16 18:45 08/31/16 11:28 (Roxicodone) 5 mg Q4H PRN PO 08/28/16 18:45 08/29/16 00:20 (Colace) 100 mg BID PO 08/28/16 21:00 08/31/16 09:44 (Roxicodone) 15 mg Q4H PRN PO 08/30/16 18:45 08/31/16 06:15 A/P Problem List: (1) Sickle cell crisis ICD Code: D57.00 Status: Acute (2) Chest pain ICD Code: R07.9 Status: Acute (3) Sickle cell anemia ICD Code: D57.1 Status: Chronic (4) SOB (shortness of breath) ICD Code: R06.02 Status: Acute Assessment and Plan Sickle cell disease The pt has pain in her back and LEs, as well as chest wall tenderness. Breathing comfortably at this time. Appreciate hematology consult. - DC IV fluids. - Pain meds with a bowel regimen. - Monitor H&H and transfuse as needed. - oxygen as needed. Home oxygen walk test requested. - PT. Chest pain Chest x-ray showed no acute disease. Chest pain is reproducible upon palpation of the sternum. Likely musculoskeletal. The patient denies any shortness of breath or pleuritic chest pain at this time. Repeat CXR unremarkable. - Continue pain management. Hypoxemia The patient is currently requiring oxygen. She has crackles on exam. V/Q scan low probability for PE. - DC IV fluids. - Oxygen and nebs as needed. - Home oxygen walk test requested. Bilateral lower extremity edema The patient says she typically gets lower extremity edema with flares of her sickle cell disease. - Continue symptomatically treatment and monitor. Palpitations Has a loop recorder in place. - On metoprolol 50 mg twice a day. DVT prop Lovenox. Discharge Planning Anticipate d/c following home oxygen walk test. Problem Qualifiers (1) Sickle cell anemia: Qualified Code: D57.00 - Hb-SS disease with crisis Elieser Reyez DO Aug 31, 2016 15:39
== END 2016-08-31 19:05 | disposition home or self-care (01) | DRG 812 ==
LOC: NEPA 11:56 → NEDA 16:47 → HOCA 19:12
PROVIDERS: ADMIT Hospitalist; ATTEND Hospitalist
DX: D57.00 Hb-SS disease with crisis, unspecified (principal); R09.02 Hypoxemia; I10 Essential (primary) hypertension; Z88.7 Allergy status to serum and vaccine; Z86.718 Personal history of other venous thrombosis and embolism; R07.9 Chest pain, unspecified; M79.606 Pain in leg, unspecified; M54.9 Dorsalgia, unspecified; M19.90 Unspecified osteoarthritis, unspecified site; R00.2 Palpitations; Z79.899 Other long term (current) drug therapy; M25.562 Pain in left knee; M25.561 Pain in right knee; R60.0 Localized edema
CPT/HCPCS: 36600; 71010; 78582; 80053; 81001; 82550; 82805; 83735; 84484; 84702; 85007; 85027; 85044; 85610; 85730; 86140; 93005; 94620; 96374; 96375; 96376; A9540; A9567; J1170; J1200; J1650; J1885; J2270; J2405; J7030

== ENCOUNTER 2017-08-06 08:49 | Emergency (ER) | payer BC, OTHER ==
[~2017-08-06] VITALS: Ht 165.1 cm; Wt 70.0 kg
[~2017-08-06 08:49] MED LIST changes: +METO50TA PO; -METO50TA11 PO; -OCUF0.3D RIGHT EYE; -PANT40TA3 PO
[2017-08-06 08:50] VITALS: BP 120/57; PULSE 100; RESP 20; TEMP 99; O2SAT 97
[2017-08-06] MEDS ORDERED: HYDR500C PO (10:10)
[2017-08-06] MEDS ORDERED: OXYC1CAP PO (10:10)
[2017-08-06] MEDS ORDERED: SODIUM CHLOR 0.9% 1000 ML INJ 1,000 ML IV ONE (10:38)
--- NOTE | 2017-08-06 10:40 | PD ---
HPI Chief Complaint: Sickle Cell Time Seen by Provider: 10:28 Travel History International Travel<30 days: No Contact w/Intl Traveler<30days: No Traveled to known affect area: No History of Present Illness HPI Patient is a 57-year-old female with a history of sickle cell disease presents emergency department with bilateral lower extremity pain for the past week, this progressed to cough and congestion symptoms. Patient states she was recently in [place] for a , she states that she noted that her legs been swelling while she was there and she has also been having some right knee pain. Denies any fever shortness of breath history of blood clots in her legs or her chest. States his symptoms are severe, she tried oxycodone at home without significant relief. She states that her friend drove her here and she is not driving home. States the pain has rapidly progressed over the past week and a severe PFSH Past Medical History Arthritis: Yes Asthma: No Blood Disorders: Yes (DVT'S) Heart Rhythm Problems: No Cancer: No Cardiac Catheterization: No Cardiovascular Problems: Yes (heart PALPITATIONS, heart loop recorder) High Cholesterol: No Chemotherapy: No Chest Pain: No Congestive Heart Failure: No COPD: No Cerebrovascular Accident: No Diabetes: No Diminished Hearing: No Deep Vein Thrombosis: Yes Endocrine: No Gastrointestinal Disorders: No GERD: No Glaucoma: No Genitourinary: No Headaches: No Hepatitis: No Hiatal Hernia: No Heparin Induced Thrombocytopen: No Hypertension: Yes Immune Disorder: No Implanted Vascular Access Dvce: Yes (PORT) Kidney Stones: No Medical other: Yes (SICKLE CELL DISEASE, DVT) Musculoskeletal: Yes (ARTHRITIS) Neurologic: No Psychiatric: No Reproductive: No Respiratory: No Migraines: No Myocardial Infarction: No Radiation Therapy: No 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) Seizures: No Sickle Cell Disease: Yes Sleep Apnea: No Thyroid Disease: No Ulcer: No Tetanus Vaccination: Unknown Influenza Vaccination: Yes ?: Not Menopausal: Yes : 4 Para: 3 Miscarriage: 1 Ovarian Cysts: Yes Tubal Ligation: Yes (1996) Past Surgical History Abdominal Surgery: Yes (CHICHI, APPEND., COLON REPAIR) AICD: No Appendectomy: Yes Arteriovenous Shunt: No Body Medical Devices: LOOP RECORDER, INFUSA PORT Cardiac Surgery: Yes (CARDIAC LOOP RECORDER,) Cholecystectomy: Yes Coronary Artery Bypass Graft: No Ear Surgery: Yes Endocrine Surgery: No Eye Surgery: Yes (RIGHT EYE BLEED,) Genitourinary Surgery: No Gynecologic Surgery: Yes (OVARIAN CYSTS X3) Insulin Pump: No Joint Replacement: No Neurologic Surgery: No Oral Surgery: No Pacemaker: No Thoracic Surgery: No Other Surgery: Yes (LEFT SUBCLAV PORT) Social History Alcohol Use: No Tobacco Use: No Substance Use: No Allergies-Medications (Allergen,Severity, Reaction): Coded Allergies: No Known Allergies (Unverified , 08/06/17) Reported Meds & Prescriptions Reported Meds & Active Scripts Active Reported Oxycodone (Oxycodone HCl) 5 Mg Cap 5 Mg PO Q8H PRN Hydrea (Hydroxyurea) 500 Mg Cap 500 Mg PO DAILY Metoprolol Tartrate 50 Mg Tab 75 Mg PO BIDAC Review of Systems Except as stated in HPI: all other systems reviewed are Neg Physical Exam Narrative GENERAL: Well-developed well-nourished, appears uncomfortable but nontoxic. SKIN: Focused skin assessment warm/dry. HEAD: Atraumatic. Normocephalic. EYES: Pupils equal and round. No scleral icterus. No injection or drainage. ENT: No nasal bleeding or discharge. Mucous membranes pink and moist. NECK: Trachea midline. No JVD. CARDIOVASCULAR: Regular rate and rhythm. No murmur appreciated. RESPIRATORY: No accessory muscle use. Clear to auscultation. Breath sounds equal bilaterally. GASTROINTESTINAL: Abdomen soft, non-tender, nondistended. Hepatic and splenic margins not palpable. MUSCULOSKELETAL: No obvious deformities. No clubbing. No cyanosis. No edema. No edema of either extremity, no Homans sign. No cordlike structure NEUROLOGICAL: Awake and alert. No obvious cranial nerve deficits. Motor grossly within normal limits. Normal speech. PSYCHIATRIC: Appropriate mood and affect; insight and judgment normal. Data Data Last Documented VS Vital Signs Date Time Temp Pulse Resp B/P (MAP) Pulse Ox O2 Delivery O2 Flow Rate FiO2 08/06/17 13:54 76 15 103/54 (70) 95 Room Air 08/06/17 11:16 2.00 08/06/17 08:50 99.0 Orders Orders Basic Metabolic Panel (Bmp) (08/06/17 10:38) Complete Blood Count With Diff (08/06/17 10:38) Retic Count (08/06/17 10:38) Chest, Single Ap (08/06/17 10:38) Ecg Monitoring (08/06/17 10:38) Iv Access Insert/Monitor (08/06/17 10:38) Oximetry (08/06/17 10:38) Ketorolac Inj (Toradol Inj) (08/06/17 10:45) Sodium Chloride 0.9% Flush (Ns Flush) (08/06/17 10:45) Sodium Chlor 0.9% 1000 Ml Inj (Ns 1000 M (08/06/17 10:38) Diphenhydramine Inj (Benadryl Inj) (08/06/17 10:45) Morphine Inj (Morphine Inj) (08/06/17 10:45) Us Leg Venous Doppler Bilat (08/06/17 10:38) Knee, Complete (4vws) (08/06/17 ) Morphine Inj (Morphine Inj) (08/06/17 13:30) Ed Discharge Order (08/06/17 14:10) Labs Laboratory Tests Test 08/06/17 10:35 White Blood Count 14.4 TH/MM3 Red Blood Count 3.75 MIL/MM3 Hemoglobin 8.9 GM/DL Hematocrit 27.5 % Mean Corpuscular Volume 73.4 FL Mean Corpuscular Hemoglobin 23.7 PG Mean Corpuscular Hemoglobin Concent 32.3 % Red Cell Distribution Width 24.6 % Platelet Count 328 TH/MM3 Mean Platelet Volume 10.3 FL Neutrophils (%) (Auto) 62.4 % Lymphocytes (%) (Auto) 23.0 % Monocytes (%) (Auto) 12.4 % Eosinophils (%) (Auto) 0.8 % Basophils (%) (Auto) 1.4 % Neutrophils # (Auto) 9.0 TH/MM3 Lymphocytes # (Auto) 3.3 TH/MM3 Monocytes # (Auto) 1.8 TH/MM3 Eosinophils # (Auto) 0.1 TH/MM3 Basophils # (Auto) 0.2 TH/MM3 CBC Comment AUTO DIFF Differential Total Cells Counted 100 Neutrophils % (Manual) 51 % Band Neutrophils % 8 % Lymphocytes % 31 % Monocytes % 8 % Eosinophils % 1 % Neutrophils # (Manual) 8.6 TH/MM3 Metamyelocytes 1 % Nucleated Red Blood Cells 79 /100 WBC Differential Comment FINAL DIFF MANUAL Platelet Estimate NORMAL Platelet Morphology Comment NORMAL Polychromasia 4.1 % Sickle Cells 1+ Target Cells 2+ Reticulocyte Count 12.3 % Absolute Reticulocyte Count 462.9 MIL/L Blood Urea Nitrogen 5 MG/DL Creatinine 0.66 MG/DL Random Glucose 85 MG/DL Calcium Level 9.2 MG/DL Sodium Level 139 MEQ/L Potassium Level 3.8 MEQ/L Chloride Level 104 MEQ/L Carbon Dioxide Level 28.5 MEQ/L Anion Gap 7 MEQ/L Estimat Glomerular Filtration Rate 113 ML/MIN MDM Medical Decision Making Medical Screen Exam Complete: Yes Emergency Medical Condition: Yes Differential Diagnosis DVT, avascular necrosis of the knee, sickle cell pain crisis, occlusive crisis, Narrative Course Patient room to the emergency department, pain medication was given and the patient's pain is practically nonexistent on reassessment. Her initial workup including ultrasound of bilateral lower extremities and x-ray of the knee are negative. Her labs are reassuring and has an appropriate reticulocyte count. Discussed with her need follow-up with a line out man and discuss return to ED criteria. She is stable for discharge Diagnosis Primary Impression: Sickle cell crisis Additional Impression: Leg pain Disposition: 01 DISCHARGE HOME Condition: Stable Paul Lemos MD Aug 06, 2017 10:40
[2017-08-06] MEDS ORDERED: SODIUM CHLORIDE 0.9% FLUSH 10 ML FLUSH IVF PRN (10:45)
[2017-08-06] MEDS ORDERED: KETOROLAC TROMETHAMINE 30 MG/ML (IVP) VIAL IVP ONE (10:45)
[2017-08-06] MEDS ORDERED: diphenhydrAMINE HCL 50 MG/ML VIAL IV PUSH ONE (10:45)
[2017-08-06] MEDS ORDERED: MORPHINE SULFATE 2 MG/ML INJ IV PUSH ONE (10:45)
[2017-08-06 11:09] LABS: BASOPHIL # 0.2 TH/MM3 (0-0.2); BASOPHIL % 1.4 % (0.0-2.0); EOSINOPHIL # 0.1 TH/MM3 (0-0.4); EOSINOPHIL % 0.8 % (0.0-4.0); HEMATOCRIT 27.5 % (35.0-46.0); HEMOGLOBIN 8.9 GM/DL (11.6-15.3); LYMPHOCYTE # 3.3 TH/MM3 (1.0-4.8); MEAN CELL VOLUME 73.4 FL (80.0-100.0); MEAN CORPUSCULAR HEMOGLOBIN 23.7 PG (27.0-34.0); MEAN CORPUSCULAR HGB CONC 32.3 % (32.0-36.0); MEAN PLATELET VOLUME 10.3 FL (7.0-11.0); MONO % 12.4 % (0.0-8.0); MONOCYTE # 1.8 TH/MM3 (0-0.9); NEUT % 62.4 % (16.0-70.0); PLATELET COUNT 328 TH/MM3 (150-450); RED BLOOD COUNT 3.75 MIL/MM3 (4.00-5.30); RED CELL DISTRIBUTION WIDTH 24.6 % (11.6-17.2); RETIC # 462.9 MIL/L (20.0-150.0); RETIC % 12.3 % (0.4-3.0); WHITE BLOOD COUNT 14.4 TH/MM3 (4.0-11.0)
[2017-08-06 11:16] VITALS: O2SAT 100
[2017-08-06 11:29] LABS: BICARBONATE 28.5 MEQ/L (21.0-32.0); CALCIUM 9.2 MG/DL (8.5-10.1); CREATININE 0.66 MG/DL (0.50-1.00)
--- NOTE | 2017-08-06 11:47 | RADRPT ---
EXAM DATE/TIME: 08/06/2017 10:45 [facility] COMPARISON: No previous studies available for comparison. INDICATIONS : Bilateral leg pain. MEDICAL HISTORY : Hypertension. Deep venous thrombosis. Dyspnea. Ovarian cysts. Sickle cell disease. SURGICAL HISTORY : Appendectomy.Cholecystectomy. Tubal ligation.Cardiac loop recorder. Left subclavian port. ENCOUNTER: Initial ACUITY: 1 day PAIN SCORE: 7/10 LOCATION: Bilateral legs. TECHNIQUE: Venous ultrasound of the left and right leg was performed from the inguinal ligament to the proximal calf. Real-time, color Doppler and spectral tracing, compression and augmentation techniques were us ed. FINDINGS: RIGHT LEG: There is normal compressibility of the deep venous system from the inguinal region to the proximal ca lf. No echogenic clot is seen in the lumen of the common femoral, femoral, popliteal, and posterior tibial veins. There is a normal response of the venous system to proximal and distal augmentation an d respiration. LEFT LEG: There is normal compressibility of the deep venous system from the inguinal region to the proximal ca lf. No echogenic clot is seen in the lumen of the common femoral, femoral, popliteal, and posterior tibial veins. There is a normal response of the venous system to proximal and distal augmentation an d respiration. CONCLUSION: Normal examination. Eric Sommer MD on August 06, 2017 at 11:45 Board Certified Radiologist. This report was verified electronically.
--- NOTE | 2017-08-06 11:51 | RADRPT ---
EXAM DATE/TIME: 08/06/2017 11:25 [facility] COMPARISON: CHEST SINGLE AP, August 30, 2016, 16:12. INDICATIONS : Chest pain and shortness of breath; fall yesterday. MEDICAL HISTORY : Hypertension. Sickle Cell disease. SURGICAL HISTORY : Loop recorder. Infusaport. ENCOUNTER: Initial ACUITY: 2 days PAIN SCORE: 4/10 LOCATION: Bilateral chest FINDINGS: A single view of the chest demonstrates the lungs to be symmetrically aerated without evidence of mas s, infiltrate or effusion. No evidence of pneumothorax. The heart is upper limits normal size for A P technique. The central bronchopulmonary markings well delineated.. Sclerosis in the superior aspe ct of the proximal humeri, similar to prior.. Loop recorder device in place. Left subclavian cathet er tip projects over the origin of the superior vena cava. CONCLUSION: The lungs are clear. Jamison Curtis MD on August 06, 2017 at 11:48 Board Certified Radiologist. This report was verified electronically.
[2017-08-06 11:55] LABS: BANDS 8 % (0-6); CORRECTED NUCLEATED RBC 79 /100 WBC (0-0); LYMPHOCYTES 31 % (9-44); METAMYELOCYTES 1 % (0-1); MONOCYTES 8 % (0-8); NEUTROPHIL # MANUAL DIFF 8.6 TH/MM3 (1.8-7.7); NUCLEATED RED BLOOD CELL 79 (0-0); POLYS (SEG NEUTROPHILS) 51 % (16-70)
[2017-08-06 11:56] LABS: POLYCHROMASIA 4.1 % (0.0-1.9); SICKLE CELLS 1+ (NORMAL); TARGET CELLS 2+ (NORMAL)
--- NOTE | 2017-08-06 12:03 | RADRPT ---
EXAM DATE/TIME: 08/06/2017 11:26 [facility] COMPARISON: CHEST PA & LAT, June 29, 2014, 6:08. CHEST SINGLE AP, August 30, 2016, 16:12. INDICATIONS : Right knee pain; fall yesterday. MEDICAL HISTORY : Sickle Cell disease. SURGICAL HISTORY : None. ENCOUNTER: Initial ACUITY: 2 days PAIN SCORE: 6/10 LOCATION: Right knee. FINDINGS: There is no evidence of acute fracture. Bony mineralization is normal. There is severe osteoarthritis involving the patellofemoral compartment. There is no evidence of joint effusion. CONCLUSION: 1. There is no evidence of acute fracture. Ha Narayanan MD on August 06, 2017 at 11:57 Board Certified Radiologist. This report was verified electronically.
[2017-08-06] MEDS ORDERED: MORPHINE SULFATE 8 MG/ML INJ IV PUSH ONE (13:30)
[2017-08-06 13:54] VITALS: BP 103/54; PULSE 76; RESP 15; O2SAT 95
== END 2017-08-06 15:16 | disposition home or self-care (01) ==
LOC: NEPC 08:49
DX: D57.00 Hb-SS disease with crisis, unspecified (principal); M79.604 Pain in right leg; M79.605 Pain in left leg
CPT/HCPCS: 71045; 73564; 80048; 85007; 85027; 85044; 93970; 96361; 96374; 96375; 96376; 99285; J1200; J1885; J2270; J7030

== ENCOUNTER 2017-08-16 18:07 | Inpatient (IN) | payer OTHER ==
[~2017-08-16] VITALS: Ht 165.1 cm; Wt 69.5 kg
[~2017-08-16 18:07] MED LIST changes: -ATRO1SOL11 RIGHT EYE; -BACL20TA PO; -FLUO10CA5 PO; -FOLI1TAB4 PO; +HYDR500C PO; -OMNI1SUS RIGHT EYE; +OXYC1CAP PO
[2017-08-16 18:09] VITALS: BP 140/67; PULSE 83; RESP 16; TEMP 98.8; O2SAT 97
[2017-08-16] MEDS ORDERED: SODIUM CHLOR 0.9% 1000 ML INJ 1,000 ML IV ONE (18:36)
[2017-08-16] MEDS ORDERED: HYDROmorphone HCL PF 2 MG/ML VIAL IVS ONE (18:45)
[2017-08-16] MEDS ORDERED: ONDANSETRON HCL 4 MG/2 ML VIAL IVP ONE (18:45)
[2017-08-16] MEDS ORDERED: diphenhydrAMINE HCL 50 MG/ML VIAL IV PUSH ONE ×2 (18:45→20:15)
[2017-08-16] MEDS ORDERED: SODIUM CHLORIDE 0.9% FLUSH 10 ML FLUSH IVF PRN (18:45)
--- NOTE | 2017-08-16 18:45 | PD ---
HPI . Sickle cell crisis Chief Complaint: Sickle Cell Time Seen by Provider: 18:27 Travel History International Travel<30 days: No Contact w/Intl Traveler<30days: No History of Present Illness HPI This patient presents with the chief complaint of leg and low back pain related to sickle cell anemia. She states that she's been fighting this since August 06. She was seen here at that time. She states that she has been to the infusion clinic twice since then and treated with IV fluids and IV narcotics. Her most recent visit was yesterday. She takes oxycodone at home. Despite this , she continues to have significant pain. She states that she is amenable to admission at this point. She denies any chest pain or fever. She is complaining with some left lower extremity pain. She states that she's had an ulcerative lesion been treated with antibiotics. She states that it continues to hurt badly. She states her primary care provider has attempted to arrange an outpatient ultrasound without success thus far. She did have an ultrasound done here on the was negative for DVT. Her pain is rated 8/10 with very little improvement with oxycodone. PFSH Past Medical History Arthritis: Yes Asthma: No Blood Disorders: Yes (DVT'S) Heart Rhythm Problems: No Cancer: No Cardiac Catheterization: No Cardiovascular Problems: Yes (heart PALPITATIONS, heart loop recorder) High Cholesterol: No Chemotherapy: No Chest Pain: No Congestive Heart Failure: No COPD: No Cerebrovascular Accident: No Diabetes: No Diminished Hearing: No Deep Vein Thrombosis: Yes Endocrine: No Gastrointestinal Disorders: No GERD: No Glaucoma: No Genitourinary: No Headaches: No Hepatitis: No Hiatal Hernia: No Heparin Induced Thrombocytopen: No Hypertension: Yes Immune Disorder: No Implanted Vascular Access Dvce: Yes (PORT) Kidney Stones: No Medical other: Yes (SICKLE CELL DISEASE, DVT) Musculoskeletal: Yes (ARTHRITIS) Neurologic: No Psychiatric: No Reproductive: No Respiratory: No Migraines: No Myocardial Infarction: No Radiation Therapy: No 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) Seizures: No Sickle Cell Disease: Yes Sleep Apnea: No Thyroid Disease: No Ulcer: No Tetanus Vaccination: < 5 Years Influenza Vaccination: No ?: Not Menopausal: Yes : 4 Para: 3 Miscarriage: 1 Ovarian Cysts: Yes Tubal Ligation: Yes (1996) Past Surgical History Abdominal Surgery: Yes (CHICHI, APPEND., COLON REPAIR) AICD: No Appendectomy: Yes Arteriovenous Shunt: No Body Medical Devices: LOOP RECORDER, INFUSA PORT Cardiac Surgery: Yes (CARDIAC LOOP RECORDER,) Cholecystectomy: Yes Coronary Artery Bypass Graft: No Ear Surgery: Yes Endocrine Surgery: No Eye Surgery: Yes (RIGHT EYE BLEED,) Genitourinary Surgery: No Gynecologic Surgery: Yes (OVARIAN CYSTS X3) Insulin Pump: No Joint Replacement: No Neurologic Surgery: No Oral Surgery: No Pacemaker: No Thoracic Surgery: No Other Surgery: Yes (LEFT SUBCLAV PORT) Social History Alcohol Use: No Tobacco Use: No Substance Use: No Allergies-Medications (Allergen,Severity, Reaction): Coded Allergies: No Known Allergies (Unverified , 08/16/17) Reported Meds & Prescriptions Reported Meds & Active Scripts Active Reported Oxycodone (Oxycodone HCl) 5 Mg Cap 5 Mg PO Q8H PRN Hydrea (Hydroxyurea) 500 Mg Cap 500 Mg PO DAILY Metoprolol Tartrate 50 Mg Tab 75 Mg PO BIDAC Review of Systems Except as stated in HPI: all other systems reviewed are Neg General / Constitutional: No: Fever, Chills Cardiovascular: No: Chest Pain or Discomfort Respiratory: No: Cough, Shortness of Breath Gastrointestinal: No: Nausea, Vomiting, Diarrhea Physical Exam Narrative GENERAL: Awake and alert. SKIN: warm/dry. Darkening of the skin on the medial left ankle. It does not appear acutely infected. HEAD: Normocephalic. Atraumatic. EYES: Pupils equal and round. No scleral icterus. No injection or drainage. ENT: No nasal bleeding or discharge. Mucous membranes pink and moist. NECK: Trachea midline. Full range of motion without pain.. CARDIOVASCULAR: Regular rate and rhythm. Heart sounds are normal. RESPIRATORY: No accessory muscle use. Clear to auscultation. Breath sounds equal bilaterally. GASTROINTESTINAL: Abdomen soft. Nontender. Bowel sounds present. Nondistended. MUSCULOSKELETAL: No obvious deformities. NEUROLOGICAL: Awake and alert. No obvious cranial nerve deficits. Motor grossly within normal limits. Normal speech. PSYCHIATRIC: Appropriate mood and affect; insight and judgment normal. Data Data Last Documented VS Vital Signs Date Time Temp Pulse Resp B/P (MAP) Pulse Ox O2 Delivery O2 Flow Rate FiO2 08/16/17 18:09 98.8 83 16 140/67 (91) 97 Orders Orders Complete Blood Count With Diff (08/16/17 18:36) Comprehensive Metabolic Panel (08/16/17 18:36) Retic Count (08/16/17 18:36) Urinalysis - C+S If Indicated (08/16/17 18:36) Blood Culture (08/16/17 18:36) Chest, Single Ap (08/16/17 18:36) Ecg Monitoring (08/16/17 18:36) Iv Access Insert/Monitor (08/16/17 18:36) Oximetry (08/16/17 18:36) Hydromorphone Pf Inj (Dilaudid Pf Inj) (08/16/17 18:45) Ondansetron Inj (Zofran Inj) (08/16/17 18:45) Sodium Chloride 0.9% Flush (Ns Flush) (08/16/17 18:45) Sodium Chlor 0.9% 1000 Ml Inj (Ns 1000 M (08/16/17 18:36) Diphenhydramine Inj (Benadryl Inj) (08/16/17 18:45) Us Leg Venous Doppler (08/16/17 18:36) MDM Medical Decision Making Medical Screen Exam Complete: Yes Emergency Medical Condition: Yes Medical Record Reviewed: Yes (this patient does not come to the emergency department very frequently. Prior to August 06, her last visit was about a year ago.) Differential Diagnosis My differential diagnosis of sickle cell disease includes but is not limited to vaso-occlusive crisis, acute chest syndrome, occult infection, electrolyte disturbance, drug-seeking behavior. Narrative Course This patient presents complaining with back and lower extremity pain related to sickle cell crisis. I have ordered an IV with IV fluids, IV ran, IV Dilaudid and IV Benadryl. Routine labs and ordered. I have also ordered an ultrasound of her left lower extremity per her doctor's wishes. Once her labs are back, she will be admitted for pain control. Her care is being turned over to the oncoming provider pending workup. Diagnosis Primary Impression: Sickle cell anemia Qualified Codes: D57.00 - Hb-SS disease with crisis, unspecified Condition: Stable Ofelia Anne MD Aug 16, 2017 18:45
[2017-08-16 18:54] VITALS: O2SAT 99
--- NOTE | 2017-08-16 19:08 | RADRPT ---
EXAM DATE/TIME: 08/16/2017 18:49 [facility] COMPARISON: CHEST SINGLE AP, August 06, 2017, 11:25. INDICATIONS : Short of breath. MEDICAL HISTORY : Sickle Cell disease. SURGICAL HISTORY : Loop recorder, infusaport ENCOUNTER: Initial ACUITY: 1 day PAIN SCORE: 8/10 LOCATION: Bilateral chest FINDINGS: Left subclavian [id number] has its tip at the junction of the superior vena cava and brachiocephal ic vein. A loop recorder is noted. The heart is stable. The pulmonary vascular pattern is normal. The lungs are clear. Degenerative change and scoliosis of the thoracolumbar spine are noted. Sclerosis i s noted involving the humeral heads bilaterally suggestive of bony changes related to sickle cell dis ease and is stable. CONCLUSION: No significant change compared to 08/06/17. Paul Maldonado MD on August 16, 2017 at 19:05 Board Certified Radiologist. This report was verified electronically.
--- NOTE | 2017-08-16 19:17 | RADRPT ---
EXAM DATE/TIME: 08/16/2017 18:55 [facility] COMPARISON: No previous studies available for comparison. INDICATIONS : Left leg swelling. MEDICAL HISTORY : Hypertension. Deep venous thrombosis. Dyspnea. Ovarian cysts. Sickle cell disease. SURGICAL HISTORY : Appendectomy.Cholecystectomy. Tubal ligation. Cardiac loop recorder. Left subclavian port. ENCOUNTER: Subsequent ACUITY: 1 day PAIN SCORE: 0/10 LOCATION: Left leg. TECHNIQUE: Venous ultrasound of the leg was performed from the inguinal ligament to the proximal calf. Real-fatimah e, color Doppler and spectral tracing, compression and augmentation techniques were used. FINDINGS: There is normal compressibility of the deep venous system from the inguinal region to the proximal ca lf. No echogenic clot is seen in the lumen of the common femoral, femoral, popliteal, and posterior tibial veins. There is a normal response of the venous system to proximal and distal augmentation an d respiration. CONCLUSION: No evidence of deep venous thrombosis within the left lower extremity. Paul Maldonado MD on August 16, 2017 at 19:15 Board Certified Radiologist. This report was verified electronically.
[2017-08-16 20:04] LABS: AUTOMATED NEUTROPHIL # 4.8 TH/MM3 (1.8-7.7); BASOPHIL # 0.2 TH/MM3 (0-0.2); BASOPHIL % 1.5 % (0.0-2.0); EOSINOPHIL # 0.1 TH/MM3 (0-0.4); EOSINOPHIL % 0.6 % (0.0-4.0); HEMATOCRIT 25.9 % (35.0-46.0); HEMOGLOBIN 8.3 GM/DL (11.6-15.3); LYMPH % 50.9 % (9.0-44.0); LYMPHOCYTE # 7.2 TH/MM3 (1.0-4.8); MEAN CELL VOLUME 71.6 FL (80.0-100.0); MEAN CORPUSCULAR HGB CONC 32.1 % (32.0-36.0); MEAN PLATELET VOLUME 9.3 FL (7.0-11.0); MONO % 13.1 % (0.0-8.0); MONOCYTE # 1.8 TH/MM3 (0-0.9); NEUT % 33.9 % (16.0-70.0); PLATELET COUNT 342 TH/MM3 (150-450); RED BLOOD COUNT 3.62 MIL/MM3 (4.00-5.30); RED CELL DISTRIBUTION WIDTH 21.9 % (11.6-17.2); RETIC # 264.5 MIL/L (20.0-150.0); RETIC % 7.3 % (0.4-3.0); WHITE BLOOD COUNT 14.1 TH/MM3 (4.0-11.0)
[2017-08-16 20:13] LABS: ALBUMIN 3.6 GM/DL (3.4-5.0); AST (GOT) 76 U/L (15-37); BICARBONATE 28.3 MEQ/L (21.0-32.0); BLOOD UREA NITROGEN 7 MG/DL (7-18); CALCIUM 8.8 MG/DL (8.5-10.1); CHLORIDE 106 MEQ/L (98-107); CREATININE 0.69 MG/DL (0.50-1.00); GLOMERULAR FILTRATION RATE 107 ML/MIN (>89); GLUCOSE,RANDOM 95 MG/DL (74-106); SODIUM (NA) 140 MEQ/L (136-145)
[2017-08-16 20:15] LABS: ALT (GPT) 57 U/L (10-53)
[2017-08-16 20:16] LABS: ALKALINE PHOSPHATASE 255 U/L (45-117); TOTAL BILIRUBIN ADULT 2.5 MG/DL (0.2-1.0); TOTAL PROTEIN 8.2 GM/DL (6.4-8.2)
[2017-08-16] MEDS ORDERED: HYDROmorphone HCL PF 2 MG/ML VIAL IV PUSH ONE (20:30)
--- NOTE | 2017-08-16 20:35 | PD ---
Data Data Last Documented VS Vital Signs Date Time Temp Pulse Resp B/P (MAP) Pulse Ox O2 Delivery O2 Flow Rate FiO2 08/16/17 20:45 86 18 136/61 (86) 96 08/16/17 18:54 Room Air 08/16/17 18:09 98.8 Orders Orders Complete Blood Count With Diff (08/16/17 18:36) Comprehensive Metabolic Panel (08/16/17 18:36) Retic Count (08/16/17 18:36) Urinalysis - C+S If Indicated (08/16/17 18:36) Blood Culture (08/16/17 18:36) Chest, Single Ap (08/16/17 18:36) Ecg Monitoring (08/16/17 18:36) Iv Access Insert/Monitor (08/16/17 18:36) Oximetry (08/16/17 18:36) Hydromorphone Pf Inj (Dilaudid Pf Inj) (08/16/17 18:45) Ondansetron Inj (Zofran Inj) (08/16/17 18:45) Sodium Chloride 0.9% Flush (Ns Flush) (08/16/17 18:45) Sodium Chlor 0.9% 1000 Ml Inj (Ns 1000 M (08/16/17 18:36) Diphenhydramine Inj (Benadryl Inj) (08/16/17 18:45) Us Leg Venous Doppler (08/16/17 18:36) Diphenhydramine Inj (Benadryl Inj) (08/16/17 20:15) Hydromorphone Pf Inj (Dilaudid Pf Inj) (08/16/17 20:30) Place In Observation (08/16/17 ) Code Status (08/16/17 20:37) Vital Signs (Adult) Q4H (08/16/17 20:37) Activity Oob With Assistance (08/16/17 20:37) Diet Heart Healthy (08/17/17 Breakfast) Sodium Chloride 0.9% Flush (Ns Flush) (08/16/17 20:45) Sodium Chloride 0.9% Flush (Ns Flush) (08/16/17 21:00) Acetaminophen (Tylenol) (08/16/17 20:45) Ondansetron Inj (Zofran Inj) (08/16/17 20:45) Temazepam (Restoril) (08/16/17 20:45) Basic Metabolic Panel (Bmp) (08/17/17 06:00) Complete Blood Count With Diff (08/17/17 06:00) Electrocardiogram (08/16/17 20:37) Pt Request For Service (08/16/17 20:37) Scd Bilateral/Knee High LUCAS.BID (08/16/17 20:37) Naloxone Inj (Narcan Inj) (08/16/17 20:45) Magnesium Hydroxide Liq (Milk Of Magnesi (08/16/17 20:45) 1/2 Ns + Kcl 20 Meq Inj (1/2 Ns + Kcl 20 (08/16/17 20:45) Acetamin-Hydrocod 325-10 Mg ([place] 10-32 (08/16/17 20:45) Hydromorphone Pf Inj (Dilaudid Pf Inj) (08/16/17 20:45) Hydroxyurea (Hydrea) (08/17/17 09:00) Metoprolol Tartrate (Lopressor) (08/17/17 07:00) Consult Medical Oncology (08/16/17 ) Labs Laboratory Tests Test 08/16/17 18:45 08/16/17 20:34 White Blood Count 14.1 TH/MM3 Red Blood Count 3.62 MIL/MM3 Hemoglobin 8.3 GM/DL Hematocrit 25.9 % Mean Corpuscular Volume 71.6 FL Mean Corpuscular Hemoglobin 23.0 PG Mean Corpuscular Hemoglobin Concent 32.1 % Red Cell Distribution Width 21.9 % Platelet Count 342 TH/MM3 Mean Platelet Volume 9.3 FL Neutrophils (%) (Auto) 33.9 % Lymphocytes (%) (Auto) 50.9 % Monocytes (%) (Auto) 13.1 % Eosinophils (%) (Auto) 0.6 % Basophils (%) (Auto) 1.5 % Neutrophils # (Auto) 4.8 TH/MM3 Lymphocytes # (Auto) 7.2 TH/MM3 Monocytes # (Auto) 1.8 TH/MM3 Eosinophils # (Auto) 0.1 TH/MM3 Basophils # (Auto) 0.2 TH/MM3 CBC Comment AUTO DIFF Reticulocyte Count 7.3 % Absolute Reticulocyte Count 264.5 MIL/L Blood Urea Nitrogen 7 MG/DL Creatinine 0.69 MG/DL Random Glucose 95 MG/DL Total Protein 8.2 GM/DL Albumin 3.6 GM/DL Calcium Level 8.8 MG/DL Alkaline Phosphatase 255 U/L Aspartate Amino Transf (AST/SGOT) 76 U/L Alanine Aminotransferase (ALT/SGPT) 57 U/L Total Bilirubin 2.5 MG/DL Sodium Level 140 MEQ/L Potassium Level 3.6 MEQ/L Chloride Level 106 MEQ/L Carbon Dioxide Level 28.3 MEQ/L Anion Gap 6 MEQ/L Estimat Glomerular Filtration Rate 107 ML/MIN [facility] Supervised Visit with SOSA: No Narrative Course The patient was initially evaluated by the previous provider and sent out to me at the beginning my shift pending labs and disposition. See her note for further details. Briefly this is a 57-year-old female with history of sickle cell anemia who is here for evaluation of sickle cell crisis pain. The patient has a chronic wound to her left ankle and is currently on oral antibiotics for this. She has noted some increase in swelling, so a left lower extremity venous duplex was ordered to rule out DVT. The patient is not a frequent visitor to the emergency department, and this is her second visit in the last week for sickle cell pain. She had also followed up with her commodity trader in his office yesterday where she received fluid hydration and pain medication, however her sickle cell crisis pain continues. She is not having any chest pain or dyspnea. Vital signs show heart rate 83, blood pressure 140/67, pulse ox 99% on room air , oral temp of 98.8F. CBC: WBC 14.1, hemoglobin 8.3, hematocrit 25.9, platelets 342. CMP is remarkable for AST 76, ALT 57, alkaline phosphatase 255, total bili 2.5. Reticulocyte count is 7.3% with an absolute reticulocyte count of 264. Chest x-ray: No significant change compared to 08/06/17. Left lower extremity venous duplex: No evidence of DVT in the left lower extremity. Case was discussed with the patient's commodity trader Dr. Borges. The patient has required 2 doses of Dilaudid here in the emergency department as well as IV fluids and continues to complain of pain. He agrees with admitting the patient to the hospital for further fluid hydration and pain control. Case discussed with [facility] hospitalist Dr. Petersen who will admit the patient to his service. Diagnosis Primary Impression: Sickle cell crisis Admitting Information Admitting Physician Requests: Admit Condition: Stable Hiro Kwong MD Aug 16, 2017 20:35
[2017-08-16 20:45] VITALS: BP 136/61; PULSE 86; RESP 18; O2SAT 96
[2017-08-16] MEDS ORDERED: SODIUM CHLORIDE 0.9% FLUSH 10 ML FLUSH IV FLUSH PRN (20:45)
[2017-08-16] MEDS ORDERED: MAGNESIUM HYDROXIDE SUSP 30 ML CUP PO PRN (20:45)
[2017-08-16] MEDS ORDERED: ACETAMINOPHEN 325 MG TAB PO PRN (20:45)
[2017-08-16] MEDS ORDERED: NALOXONE HCL 0.4 MG/ML AMP IV PUSH PRN (20:45)
[2017-08-16] MEDS ORDERED: TEMAZEPAM 15 MG CAP PO PRN (20:45)
[2017-08-16 20:52] LABS: BILIRUBIN, URINE NEG (NEG); BLOOD, URINE NEG (NEG); GLUCOSE,URINE NEG (NEG); KETONE, URINE NEG (NEG); NITRITE,URINE NEG (NEG); SQUAMOUS EPITHELIAL CELL URINE <1 /hpf (0-5); URINE COLOR YELLOW (YELLW/STRAW); URINE LEUKOCYTE ESTERASE SMALL (NEG)
[2017-08-16 21:08] LABS: BANDS 3 % (0-6); BASOPHILS 1 % (0-2); CORRECTED NUCLEATED RBC 44 /100 WBC (0-0); LYMPHOCYTES 51 % (9-44); MONOCYTES 6 % (0-8); NEUTROPHIL # MANUAL DIFF 5.9 TH/MM3 (1.8-7.7); NUCLEATED RED BLOOD CELL 44 (0-0); POLYS (SEG NEUTROPHILS) 39 % (16-70)
[2017-08-16 21:09] LABS: SICKLE CELLS 2+ (NORMAL); TARGET CELLS 3+ (NORMAL)
[2017-08-16 21:10] LABS: POLYCHROMASIA 3.1 % (0.0-1.9)
[2017-08-16] MEDS ORDERED: PILL SPLITTER OTHER PRN (21:15)
[2017-08-16] MEDS: SODIUM CHLORIDE 0.9% FLUSH 10 ML FLUSH IV FLUSH SCH (22:06)
[2017-08-16] MEDS: 1/2 NS + KCL 20 MEQ INJ 1,000 ML IV SCH (22:15)
[2017-08-17] VITALS (7 sets, daily range): BP systolic 110–130; BP diastolic 54–64; PULSE 68–84; RESP 17–19; TEMP 98.1–98.7; O2SAT 94–98
[2017-08-17] MEDS: HYDROmorphone HCL PF 2 MG/ML VIAL IV PUSH PRN ×3 (00:23→10:40)
[2017-08-17] MEDS: 1/2 NS + KCL 20 MEQ INJ 1,000 ML IV SCH ×2 (06:35→11:33)
[2017-08-17] MEDS: METOPROLOL TARTRATE 50 MG TAB PO SCH ×2 (06:35→17:17)
[2017-08-17 07:34] LABS: AUTOMATED NEUTROPHIL # 5.7 TH/MM3 (1.8-7.7); BASOPHIL # 0.2 TH/MM3 (0-0.2); BASOPHIL % 1.7 % (0.0-2.0); EOSINOPHIL # 0.1 TH/MM3 (0-0.4); HEMATOCRIT 23.7 % (35.0-46.0); HEMOGLOBIN 7.8 GM/DL (11.6-15.3); LYMPHOCYTE # 4.9 TH/MM3 (1.0-4.8); MEAN CORPUSCULAR HEMOGLOBIN 23.8 PG (27.0-34.0); MEAN CORPUSCULAR HGB CONC 33.1 % (32.0-36.0); MEAN PLATELET VOLUME 9.8 FL (7.0-11.0); MONO % 12.5 % (0.0-8.0); MONOCYTE # 1.6 TH/MM3 (0-0.9); NEUT % 45.8 % (16.0-70.0); PLATELET COUNT 282 TH/MM3 (150-450); RED BLOOD COUNT 3.29 MIL/MM3 (4.00-5.30); WHITE BLOOD COUNT 12.5 TH/MM3 (4.0-11.0)
[2017-08-17 08:13] LABS: BICARBONATE 27.3 MEQ/L (21.0-32.0); CALCIUM 8.7 MG/DL (8.5-10.1); CREATININE 0.61 MG/DL (0.50-1.00)
--- NOTE | 2017-08-17 08:33 | HHI.HP ---
HPI Service [facility] Hospitalists Primary Care Physician Kenneth Whitaker D.O. Admission Diagnosis sickle cell crisis Chief Complaint: "Sickle cell pain" Travel History International Travel<30 Days: No Contact w/Intl Traveler <30 Da: No Traveled to Known Affected Are: No History of Present Illness This 87-year-old female patient with past medical history which includes sickle cell anemia follows with Dr. Borges, osteoarthritis arthritis, bilateral ovarian cyst with history of hemorrhagic cyst associated with anemia, bowel obstruction 2005, DVT anticoagulation was stopped in 2005, right eye vitreous hemorrhage with blindness. Patient presents with the chief complaint of leg and low back pain related to sickle cell anemia. Patient reports she's had this pain which she believes is related to sickle cell crisis since August 06. Patient was also seen in the emergency department August 06 and August 15. She states that she has been to the infusion clinic twice since then and treated with IV fluids and IV narcotics. She takes oxycodone at home. Despite this, she continues to have significant pain. She is complaining with some left lower extremity pain. She states that she's had an ulcerative lesion been treated with antibiotics. She states that it continues to see severe pain. She states her primary care provider has attempted to arrange an outpatient ultrasound without success thus far. She did have an ultrasound done [facility] August 06 was negative for DVT. Patient reports the IV Dilaudid given in emergency department did decrease her pain. Patient denies fevers chills nausea vomiting diarrhea constipation chest pain or shortness of breath. Review of Systems Constitutional: COMPLAINS OF: Fatigue, DENIES: Fever, Chills Respiratory: DENIES: Cough, Sputum production, Shortness of breath Cardiovascular: COMPLAINS OF: Lower Extremity Edema, DENIES: Chest pain, Palpitations Gastrointestinal: DENIES: Abdominal pain, Nausea, Vomiting Neurologic: DENIES: Abnormal gait, Localized weakness, Speech Problems Psychiatric: DENIES: Anxiety, Confusion, Depression Past Family Social History Past Medical History 1. Sickle-cell anemia with prior history of sickle-cell crisis. 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 2. Osteoarthritis arthritis. 3. Bilateral ovarian cyst with history of hemorrhagic cyst associated with anemia. 4. Postoperative complications after ovarian cystectomy with pelvic abscess and small bowel obstruction in 2005. 5. Recurrent abdominal pain probably secondary to ovarian masses with hemorrhagic cysts. 6. Irregular menstruation. 7. Distant history of DVT. Anticoagulation was stopped in '06 after patient had a hemorrhagic cyst. 8/ right eye vitreous hemorrhage and blindness. Past Surgical History Laparoscopy. Ovarian cystectomy 2007 Exploratory laparotomy. Drainage of pelvic abscesses. Lysis of adhesion. Release of small bowel obstruction. Previous laparoscopic ovarian cystectomy. Insertion of Infusa-Port. Appendectomy Cholecystectomy 1992 Bilateral tubal ligation. Reported Medications Oxycodone (Oxycodone HCl) 5 Mg Cap 5 Mg PO Q8H PRN Hydrea (Hydroxyurea) 500 Mg Cap 500 Mg PO DAILY Metoprolol Tartrate 50 Mg Tab 75 Mg PO BIDAC Allergies: Coded Allergies: No Known Allergies (Unverified , 08/16/17) Family History Father has CHF Mother of aneurysm bleed Both parents have sickle trait Social History Denies alcohol use Denies tobacco use Denies illicit drug use Physical Exam Vital Signs Vital Signs Date Time Temp Pulse Resp B/P (MAP) Pulse Ox O2 Delivery O2 Flow Rate FiO2 08/17/17 05:29 98.2 84 17 130/64 (86) 96 08/17/17 00:53 16 08/17/17 00:10 98.3 72 17 127/62 (83) 95 08/16/17 22:15 08/16/17 20:45 86 18 136/61 (86) 96 08/16/17 18:54 99 Room Air 08/16/17 18:09 98.8 83 16 140/67 (91) 97 Physical Exam GENERAL: This is a well-nourished, well-developed patient, in no apparent distress. SKIN: LLE healing ulcer consistent with venous stasis ulceration, no drainage, erythema or warmth noted HEAD: Atraumatic. Normocephalic. No temporal or scalp tenderness. EYES: Extraocular motions intact. No scleral icterus. No injection or drainage. CARDIOVASCULAR: Regular rate and rhythm RESPIRATORY: Clear to auscultation. Breath sounds equal bilaterally. GASTROINTESTINAL: Abdomen soft, non-tender, nondistended. MUSCULOSKELETAL: Extremities without clubbing, cyanosis, or edema. No joint tenderness, effusion, or edema noted. No calf tenderness. Negative Homans sign bilaterally. NEUROLOGICAL: Awake and alert. No focal deficits noted. Motor and sensory grossly within normal limits. 4 out of 5 muscle strength in all muscle groups. soft speech. Laboratory Laboratory Tests Test 08/16/17 18:45 3/2/18 20:34 08/17/17 06:07 White Blood Count 14.1 12.5 Red Blood Count 3.62 3.29 Hemoglobin 8.3 7.8 Hematocrit 25.9 23.7 Mean Corpuscular Volume 71.6 72.0 Mean Corpuscular Hemoglobin 23.0 23.8 Mean Corpuscular Hemoglobin Concent 32.1 33.1 Red Cell Distribution Width 21.9 23.0 Platelet Count 342 282 Mean Platelet Volume 9.3 9.8 Neutrophils (%) (Auto) 33.9 45.8 Lymphocytes (%) (Auto) 50.9 39.0 Monocytes (%) (Auto) 13.1 12.5 Eosinophils (%) (Auto) 0.6 1.0 Basophils (%) (Auto) 1.5 1.7 Neutrophils # (Auto) 4.8 5.7 Lymphocytes # (Auto) 7.2 4.9 Monocytes # (Auto) 1.8 1.6 Eosinophils # (Auto) 0.1 0.1 Basophils # (Auto) 0.2 0.2 CBC Comment AUTO DIFF AUTO DIFF Differential Total Cells Counted 100 Neutrophils % (Manual) 39 Band Neutrophils % 3 Lymphocytes % 51 Monocytes % 6 Basophils % 1 Neutrophils # (Manual) 5.9 Nucleated Red Blood Cells 44 Differential Comment FINAL DIFF MANUAL Platelet Estimate NORMAL Platelet Morphology Comment GIANT Polychromasia 3.1 Basophilic Stippling MOD Sickle Cells 2+ Target Cells 3+ Reticulocyte Count 7.3 Absolute Reticulocyte Count 264.5 Blood Urea Nitrogen 7 5 Creatinine 0.69 0.61 Random Glucose 95 89 Total Protein 8.2 Albumin 3.6 Calcium Level 8.8 8.7 Alkaline Phosphatase 255 Aspartate Amino Transf (AST/SGOT) 76 Alanine Aminotransferase (ALT/SGPT) 57 Total Bilirubin 2.5 Sodium Level 140 137 Potassium Level 3.6 4.0 Chloride Level 106 105 Carbon Dioxide Level 28.3 27.3 Anion Gap 6 5 Estimat Glomerular Filtration Rate 107 123 Urine Color YELLOW Urine Turbidity CLEAR Urine pH 7.0 Urine Specific [place] 1.006 Urine Protein NEG Urine Glucose (UA) NEG Urine Ketones NEG Urine Occult Blood NEG Urine Nitrite NEG Urine Bilirubin NEG Urine Urobilinogen 2.0 Urine Leukocyte Esterase SMALL Urine WBC 1 Urine Squamous Epithelial Cells <1 Microscopic Urinalysis Comment CULT NOT INDICATED Date/Time Source Procedure Growth Status 08/16/17 18:45 Blood Peripheral Aerobic Blood Culture Pending Received 08/16/17 18:45 Blood Peripheral Anaerobic Blood Culture Pending Received Result Diagram: 08/17/17 0607 08/17/17 0607 Imaging Last Impressions Ankle X-Ray 08/17/17 0000 Signed Impressions: Service Date/Time: Thursday, August 17, 2017 12:50 - CONCLUSION: Unremarkable examination of the left ankle. Clovis Altman MD Lower Extremity Ultrasound [id number] Signed Impressions: Service Date/Time: Wednesday, August 16, 2017 18:55 - CONCLUSION: No evidence of deep venous thrombosis within the left lower extremity. Paul Maldonado MD Chest X-Ray [id number] Signed Impressions: Service Date/Time: Wednesday, August 16, 2017 18:49 - CONCLUSION: No significant change compared to 08/06/17. MD Renu Hernandez VTE Risk Assessment Caprini VTE Risk Assessment: Mod/High Risk (score >= 2) Caprini Risk Assessment Model Point Value = 1 Point Value = 2 Point Value = 3 Point Value = 5 Age 41-60 Minor surgery BMI > 25 kg/m2 Swollen legs Varicose veins or History of unexplained or recurrent spontaneous Oral contraceptives or hormone replacement Sepsis (< 1 month) Serious lung disease, including pneumonia (< 1 month) Abnormal pulmonary function Acute myocardial infarction Congestive heart failure (< 1 month) History of inflammatory bowel disease Medical patient at bed rest Age 61-74 Arthroscopic surgery Major open surgery (> 45 min) Laparoscopic surgery (> 45 min) Malignancy Confined to bed (> 72 hours) Immobilizing plaster cast Central venous access Age >= 75 History of VTE Family history of VTE Factor V Leiden Prothrombin [id number] Lupus anticoagulant Anticardiolipin antibodies Elevated serum homocysteine Heparin-induced thrombocytopenia Other congenital or acquired thrombophilia Stroke (< 1 month) Elective arthroplasty Hip, pelvis, or leg fracture Acute spinal cord injury (< 1 month) Prophylaxis Regimen Total Risk Factor Score Risk Level Prophylaxis Regimen 0-1 Low Early ambulation 2 Moderate Order ONE of the following: *Sequential Compression Device (SCD) *Heparin 5000 units SQ BID 3-4 Higher Order ONE of the following medications: *Heparin 5000 units SQ TID *Enoxaparin/Lovenox 40 mg SQ daily (WT < 150 kg, CrCl > 30 mL/min) *Enoxaparin/Lovenox 30 mg SQ daily (WT < 150 kg, CrCl > 10-29 mL/min) *Enoxaparin/Lovenox 30 mg SQ BID (WT < 150 kg, CrCl > 30 mL/min) AND/OR *Sequential Compression Device (SCD) 5 or more Highest Order ONE of the following medications: *Heparin 5000 units SQ TID (Preferred with Epidurals) *Enoxaparin/Lovenox 40 mg SQ daily (WT < 150 kg, CrCl > 30 mL/min) *Enoxaparin/Lovenox 30 mg SQ daily (WT < 150 kg, CrCl > 10-29 mL/min) *Enoxaparin/Lovenox 30 mg SQ BID (WT < 150 kg, CrCl > 30 mL/min) AND *Sequential Compression Device (SCD) Assessment and Plan Problem List: (1) Sickle cell crisis ICD Codes: D57.00 - Sickle cell crisis Status: Acute Plan: IV fluids one half normal saline with 20 of potassium 125 miles per hour [place] as needed for pain 1-5, Dilaudid as needed for pain 6-10 Continue patient's hydroxyurea 500 mg by mouth daily Consult oncology patient follows with outpatient Recheck CBC in a.m. Supportive care (2) Sickle cell anemia ICD Codes: D57.1 - Sickle-cell disease without crisis Status: Chronic Plan: See above (3) Leg pain ICD Codes: M79.606 - Pain in leg, unspecified Status: Chronic Plan: Patient does have a remote history of DVT anticoagulation was stopped in 2005 secondary to hemorrhagic ovarian cyst Patient presents to the department with complaints of left lower extremity edema and pain Ultrasound completed 08/16/2017 conclusion no evidence of deep vein thrombosis within the left lower extremity X ray LLE reviewed normal exam. skin LLE consistent with healing venous stasis ulceration. dried scab present. No drainage, erythema or warmth noted. will apply SCOTTIE hose to LLE recommend elevation and rest of LLE (4) Palpitations ICD Codes: R00.2 - Palpitations Status: Chronic Plan: The patient does have a history of palpitations does have an implanted loop recorder Will continue patient's home metoprolol 75 g by mouth twice a day Assessment and Plan Patient examined. Assessment and plan formulated with Henna Boykin PA-C. I agree with the above. Problem Qualifiers (1) Sickle cell anemia: Qualified Codes: D57.00 - Hb-SS disease with crisis, unspecified Henna Boykin Aug 17, 2017 08:33 Ceferino Petersen DO Aug 19, 2017 12:25
[2017-08-17 08:43] LABS: BANDS 4 % (0-6); CORRECTED NUCLEATED RBC 38 /100 WBC (0-0); LYMPHOCYTES 44 % (9-44); MONOCYTES 10 % (0-8); MYELOCYTES 1 % (0-0); NEUTROPHIL # MANUAL DIFF 5.8 TH/MM3 (1.8-7.7); NUCLEATED RED BLOOD CELL 38 (0-0); POLYS (SEG NEUTROPHILS) 41 % (16-70)
[2017-08-17 08:45] LABS: HOWELL-JOLLY BODIES PRESENT (NONE SEEN)
[2017-08-17 08:46] LABS: SICKLE CELLS 1+ (NORMAL)
[2017-08-17 08:47] LABS: POLYCHROMASIA 3.3 % (0.0-1.9)
[2017-08-17 08:48] LABS: TARGET CELLS 2+ (NORMAL)
--- NOTE | 2017-08-17 09:03 | EKG ---
Date Performed: 08/16/2017 Time Performed: 20:59:58 PTAGE: 57 years EKG: Sinus rhythm MINIMAL VOLTAGE CRITERIA FOR LVH, CONSIDER NORMAL VARIANT BORDERLINE ECG PREVIOUS TRACING : 08/27/2016 11.56 DOCTOR: Clovis Lovelace Interpretating Date/Time 08/17/2017 09:01:19
[2017-08-17] MEDS: SODIUM CHLORIDE 0.9% FLUSH 10 ML FLUSH IV FLUSH SCH ×2 (09:16→21:00)
[2017-08-17] MEDS: HYDROXYUREA 500 MG CAP PO SCH (09:18)
--- NOTE | 2017-08-17 13:04 | RADRPT ---
EXAM DATE/TIME: 08/17/2017 12:50 [place] COMPARISON: No previous studies available for comparison. INDICATIONS : Left medial ankle pain after wearing new boots 1 month ago. MEDICAL HISTORY : Hypertension. Deep venous thrombosis. Sickle Cell disease. Ovarian cysts SURGICAL HISTORY : Appendectomy. Cholecystectomy. Tubal ligation. Cardiac loop recorder.Left subclavian port. ENCOUNTER: Subsequent ACUITY: 1 month PAIN SCORE: 8/10 LOCATION: Left medial ankle FINDINGS: Three view exam was performed of the left ankle. The bony structures are in normal alignment. No ev idence of fracture, dislocation, or soft tissue swelling. The ankle mortise is intact. No radiopaqu e foreign bodies are seen. Bony mineralization is normal. CONCLUSION: Unremarkable examination of the left ankle. Clovis Almtan MD on August 17, 2017 at 13:02 Board Certified Radiologist. This report was verified electronically.
[2017-08-17] MEDS: ONDANSETRON HCL 4 MG/2 ML VIAL IVP PRN (13:37)
[2017-08-17] MEDS: ACETAMINOPHEN/HYDROcodone 325 MG/10 MG TAB PO PRN (17:17)
[2017-08-17] MEDS: DOCUSATE SODIUM 100 MG CAP PO SCH (21:00)
[2017-08-18] VITALS (7 sets, daily range): BP systolic 107–148; BP diastolic 55–71; PULSE 57–95; RESP 17–20; TEMP 97.9–98.6; O2SAT 93–96
[2017-08-18] MEDS: ACETAMINOPHEN/HYDROcodone 325 MG/10 MG TAB PO PRN ×3 (00:58→20:19)
[2017-08-18] MEDS: 1/2 NS + KCL 20 MEQ INJ 1,000 ML IV SCH ×4 (00:59→22:00)
[2017-08-18] MEDS: METOPROLOL TARTRATE 50 MG TAB PO SCH ×2 (06:42→16:00)
[2017-08-18] MEDS: DOCUSATE SODIUM 100 MG CAP PO SCH ×2 (07:45→20:18)
[2017-08-18] MEDS: HYDROXYUREA 500 MG CAP PO SCH (07:46)
[2017-08-18] MEDS: SODIUM CHLORIDE 0.9% FLUSH 10 ML FLUSH IV FLUSH SCH ×2 (07:47→20:19)
[2017-08-18 09:15] LABS: AUTOMATED NEUTROPHIL # 6.2 TH/MM3 (1.8-7.7); BASOPHIL # 0.2 TH/MM3 (0-0.2); BASOPHIL % 1.8 % (0.0-2.0); EOSINOPHIL # 0.1 TH/MM3 (0-0.4); EOSINOPHIL % 1.2 % (0.0-4.0); HEMATOCRIT 26.8 % (35.0-46.0); HEMOGLOBIN 8.8 GM/DL (11.6-15.3); LYMPHOCYTE # 3.1 TH/MM3 (1.0-4.8); MEAN CELL VOLUME 71.7 FL (80.0-100.0); MEAN CORPUSCULAR HEMOGLOBIN 23.5 PG (27.0-34.0); MEAN CORPUSCULAR HGB CONC 32.8 % (32.0-36.0); MEAN PLATELET VOLUME 9.7 FL (7.0-11.0); MONO % 12.4 % (0.0-8.0); MONOCYTE # 1.3 TH/MM3 (0-0.9); NEUT % 56.6 % (16.0-70.0); PLATELET COUNT 343 TH/MM3 (150-450); RED BLOOD COUNT 3.73 MIL/MM3 (4.00-5.30); RED CELL DISTRIBUTION WIDTH 23.7 % (11.6-17.2); WHITE BLOOD COUNT 10.9 TH/MM3 (4.0-11.0)
[2017-08-18 10:03] LABS: BANDS 5 % (0-6); CORRECTED NUCLEATED RBC 115 /100 WBC (0-0); LYMPHOCYTES 34 % (9-44); METAMYELOCYTES 1 % (0-1); MONOCYTES 9 % (0-8); NEUTROPHIL # MANUAL DIFF 5.9 TH/MM3 (1.8-7.7); NUCLEATED RED BLOOD CELL 115 (0-0); POLYS (SEG NEUTROPHILS) 48 % (16-70); TARGET CELLS 2+ (NORMAL)
[2017-08-18 10:05] LABS: POLYCHROMASIA 4.8 % (0.0-1.9); SICKLE CELLS 1+ (NORMAL)
[2017-08-18 10:06] LABS: HOWELL-JOLLY BODIES PRESENT (NONE SEEN)
[2017-08-18 10:33] LABS: ALBUMIN 3.6 GM/DL (3.4-5.0); AST (GOT) 74 U/L (15-37); BICARBONATE 27.9 MEQ/L (21.0-32.0); BLOOD UREA NITROGEN 4 MG/DL (7-18); CALCIUM 9.3 MG/DL (8.5-10.1); CHLORIDE 106 MEQ/L (98-107); CREATININE 0.56 MG/DL (0.50-1.00); GLOMERULAR FILTRATION RATE 136 ML/MIN (>89); GLUCOSE,RANDOM 78 MG/DL (74-106); SODIUM (NA) 140 MEQ/L (136-145)
[2017-08-18 10:34] LABS: ALKALINE PHOSPHATASE 229 U/L (45-117); ALT (GPT) 45 U/L (10-53); TOTAL BILIRUBIN ADULT 2.5 MG/DL (0.2-1.0); TOTAL PROTEIN 8.1 GM/DL (6.4-8.2)
[2017-08-18] MEDS: HYDROmorphone HCL PF 2 MG/ML VIAL IV PUSH PRN ×2 (11:37→21:21)
--- NOTE | 2017-08-18 13:03 | HHI.PR ---
Subjective Remarks Patient reports her pain is tolerable right now as she recently received IV Dilaudid Objective Vitals Vital Signs Date Time Temp Pulse Resp B/P (MAP) Pulse Ox O2 Delivery O2 Flow Rate FiO2 08/18/17 12:18 98.2 60 20 110/60 (77) 96 08/18/17 08:49 97.9 57 20 111/68 (82) 96 08/18/17 04:39 98.2 76 18 107/55 (72) 95 08/17/17 23:34 98.7 70 18 118/59 (78) 98 08/17/17 20:28 98.1 68 18 117/56 (76) 96 08/17/17 16:29 98.2 69 18 122/61 (81) 97 Result Diagram: 08/18/17 0740 08/18/17 0740 Other Results Laboratory Tests Test 08/16/17 18:45 08/16/17 20:34 08/17/17 06:07 08/18/17 07:40 White Blood Count 14.1 TH/MM3 12.5 TH/MM3 10.9 TH/MM3 Red Blood Count 3.62 MIL/MM3 3.29 MIL/MM3 3.73 MIL/MM3 Hemoglobin 8.3 GM/DL 7.8 GM/DL 8.8 GM/DL Hematocrit 25.9 % 23.7 % 26.8 % Mean Corpuscular Volume 71.6 FL 72.0 FL 71.7 FL Mean Corpuscular Hemoglobin 23.0 PG 23.8 PG 23.5 PG Mean Corpuscular Hemoglobin Concent 32.1 % 33.1 % 32.8 % Red Cell Distribution Width 21.9 % 23.0 % 23.7 % Platelet Count 342 TH/MM3 282 TH/MM3 343 TH/MM3 Mean Platelet Volume 9.3 FL 9.8 FL 9.7 FL Neutrophils (%) (Auto) 33.9 % 45.8 % 56.6 % Lymphocytes (%) (Auto) 50.9 % 39.0 % 28.0 % Monocytes (%) (Auto) 13.1 % 12.5 % 12.4 % Eosinophils (%) (Auto) 0.6 % 1.0 % 1.2 % Basophils (%) (Auto) 1.5 % 1.7 % 1.8 % Neutrophils # (Auto) 4.8 TH/MM3 5.7 TH/MM3 6.2 TH/MM3 Lymphocytes # (Auto) 7.2 TH/MM3 4.9 TH/MM3 3.1 TH/MM3 Monocytes # (Auto) 1.8 TH/MM3 1.6 TH/MM3 1.3 TH/MM3 Eosinophils # (Auto) 0.1 TH/MM3 0.1 TH/MM3 0.1 TH/MM3 Basophils # (Auto) 0.2 TH/MM3 0.2 TH/MM3 0.2 TH/MM3 CBC Comment AUTO DIFF AUTO DIFF AUTO DIFF Differential Total Cells Counted 100 100 100 Neutrophils % (Manual) 39 % 41 % 48 % Band Neutrophils % 3 % 4 % 5 % Lymphocytes % 51 % 44 % 34 % Monocytes % 6 % 10 % 9 % Basophils % 1 % Neutrophils # (Manual) 5.9 TH/MM3 5.8 TH/MM3 5.9 TH/MM3 Nucleated Red Blood Cells 44 /100 WBC 38 /100 WBC 115 /100 WBC Differential Comment FINAL DIFF MANUAL FINAL DIFF MANUAL FINAL DIFF MANUAL Platelet Estimate NORMAL NORMAL NORMAL Platelet Morphology Comment GIANT NORMAL NORMAL Polychromasia 3.1 % 3.3 % 4.8 % Basophilic Stippling MOD FAINT FAINT Sickle Cells 2+ 1+ 1+ Target Cells 3+ 2+ 2+ Reticulocyte Count 7.3 % Absolute Reticulocyte Count 264.5 MIL/L Blood Urea Nitrogen 7 MG/DL 5 MG/DL 4 MG/DL Creatinine 0.69 MG/DL 0.61 MG/DL 0.56 MG/DL Random Glucose 95 MG/DL 89 MG/DL 78 MG/DL Total Protein 8.2 GM/DL 8.1 GM/DL Albumin 3.6 GM/DL 3.6 GM/DL Calcium Level 8.8 MG/DL 8.7 MG/DL 9.3 MG/DL Alkaline Phosphatase 255 U/L 229 U/L Aspartate Amino Transf (AST/SGOT) 76 U/L 74 U/L Alanine Aminotransferase (ALT/SGPT) 57 U/L 45 U/L Total Bilirubin 2.5 MG/DL 2.5 MG/DL Sodium Level 140 MEQ/L 137 MEQ/L 140 MEQ/L Potassium Level 3.6 MEQ/L 4.0 MEQ/L 4.2 MEQ/L Chloride Level 106 MEQ/L 105 MEQ/L 106 MEQ/L Carbon Dioxide Level 28.3 MEQ/L 27.3 MEQ/L 27.9 MEQ/L Anion Gap 6 MEQ/L 5 MEQ/L 6 MEQ/L Estimat Glomerular Filtration Rate 107 ML/MIN 123 ML/MIN 136 ML/MIN Urine Color YELLOW Urine Turbidity CLEAR Urine pH 7.0 Urine Specific [place] 1.006 Urine Protein NEG mg/dL Urine Glucose (UA) NEG mg/dL Urine Ketones NEG mg/dL Urine Occult Blood NEG Urine Nitrite NEG Urine Bilirubin NEG Urine Urobilinogen 2.0 MG/DL Urine Leukocyte Esterase SMALL Urine WBC 1 /hpf Urine Squamous Epithelial Cells <1 /hpf Microscopic Urinalysis Comment CULT NOT INDICATED Myelocytes 1 % Hunt-[place]al[place] Bodies PRESENT PRESENT Red Cell Morphology Comment Eosinophils % 3 % Metamyelocytes 1 % Imaging Last Impressions Ankle X-Ray 08/17/17 0000 Signed Impressions: Service Date/Time: Thursday, August 17, 2017 12:50 - CONCLUSION: Unremarkable examination of the left ankle. Clovis Altman MD Lower Extremity Ultrasound [id number]/16/[id number] Signed Impressions: Service Date/Time: Wednesday, August 16, 2017 18:55 - CONCLUSION: No evidence of deep venous thrombosis within the left lower extremity. Paul Maldonado MD Chest X-Ray [id number] Signed Impressions: Service Date/Time: Wednesday, August 16, 2017 18:49 - CONCLUSION: No significant change compared to 08/06/17. Paul Maldonado MD Objective Remarks GENERAL: This is a well-nourished, well-developed patient, in no apparent distress. CARDIOVASCULAR: Regular rate and rhythm RESPIRATORY: Clear to auscultation. Breath sounds equal bilaterally. GASTROINTESTINAL: Abdomen soft, non-tender, nondistended. Normal active bowel sounds MUSCULOSKELETAL: Extremities without clubbing, cyanosis, or edema. NEURO: Alert & Oriented x4 to person, place, time, situation. Moves all ext x4 A/P Problem List: (1) Sickle cell crisis ICD Codes: D57.00 - Sickle cell crisis Status: Acute Plan: IV fluids one half normal saline with 20 of potassium 125 miles per hour [place] as needed for pain 1-5, Dilaudid as needed for pain 6-10 Continue patient's hydroxyurea 500 mg by mouth daily Consult oncology patient follows with outpatient Supportive care (2) Sickle cell anemia ICD Codes: D57.1 - Sickle-cell disease without crisis Status: Chronic Plan: See above (3) Leg pain ICD Codes: M79.606 - Pain in leg, unspecified Status: Chronic Plan: Patient does have a remote history of DVT anticoagulation was stopped in 2005 secondary to hemorrhagic ovarian cyst Patient presents to the department with complaints of left lower extremity edema and pain Ultrasound completed 08/16/2017 conclusion no evidence of deep vein thrombosis within the left lower extremity X ray LLE reviewed normal exam. skin LLE consistent with healing venous stasis ulceration. dried scab present. No drainage, erythema or warmth noted. will apply SCOTTIE hose to LLE recommend elevation and rest of LLE (4) Palpitations ICD Codes: R00.2 - Palpitations Status: Chronic Plan: The patient does have a history of palpitations does have an implanted loop recorder Will continue patient's home metoprolol 75 mg by mouth twice a day Assessment and Plan Patient examined. Assessment and plan formulated with Henna Boykin PA-C. I agree with the above. Problem Qualifiers (1) Sickle cell anemia: Qualified Codes: D57.00 - Hb-SS disease with crisis, unspecified Henna Boykin Aug 18, 2017 13:03 Ceferino Petersen DO Aug 19, 2017 12:26
--- NOTE | 2017-08-18 14:54 | PD.ONC.PN ---
Subjective Subjective Remarks Patient seen and examined, vital signs, labs, medications and imaging studies reviewed. The patient was previously seen by me on 08/17/2017. A full consult note was dictated on that date of service but the dictation has not yet been transcribed. Subjectively; the patient reports having typical sickle cell related pain involving her lower back and epigastric area. She tells me the pain in her left ankle has improved, she has ambulated 20 from the bathroom. She denies difficulty breathing, chest pain, fevers, chills or overt bleeding. She tells me her current pain medication regimen seems to be working reasonably well. She does not yet feel well enough to go home. Objective Data Date Time Temp Pulse Resp B/P (MAP) Pulse Ox O2 Delivery O2 Flow Rate FiO2 08/18/17 12:18 98.2 60 20 110/60 (77) 96 08/18/17 08:49 97.9 57 20 111/68 (82) 96 08/18/17 04:39 98.2 76 18 107/55 (72) 95 08/17/17 23:34 98.7 70 18 118/59 (78) 98 08/17/17 20:28 98.1 68 18 117/56 (76) 96 08/17/17 16:29 98.2 69 18 122/61 (81) 97 Result Diagram: 08/18/17 0740 08/18/17 0740 Laboratory Results Laboratory Tests Test 08/18/17 07:40 White Blood Count 10.9 TH/MM3 Red Blood Count 3.73 MIL/MM3 Hemoglobin 8.8 GM/DL Hematocrit 26.8 % Mean Corpuscular Volume 71.7 FL Mean Corpuscular Hemoglobin 23.5 PG Mean Corpuscular Hemoglobin Concent 32.8 % Red Cell Distribution Width 23.7 % Platelet Count 343 TH/MM3 Mean Platelet Volume 9.7 FL Neutrophils (%) (Auto) 56.6 % Lymphocytes (%) (Auto) 28.0 % Monocytes (%) (Auto) 12.4 % Eosinophils (%) (Auto) 1.2 % Basophils (%) (Auto) 1.8 % Neutrophils # (Auto) 6.2 TH/MM3 Lymphocytes # (Auto) 3.1 TH/MM3 Monocytes # (Auto) 1.3 TH/MM3 Eosinophils # (Auto) 0.1 TH/MM3 Basophils # (Auto) 0.2 TH/MM3 CBC Comment AUTO DIFF Differential Total Cells Counted 100 Neutrophils % (Manual) 48 % Band Neutrophils % 5 % Lymphocytes % 34 % Monocytes % 9 % Eosinophils % 3 % Neutrophils # (Manual) 5.9 TH/MM3 Metamyelocytes 1 % Nucleated Red Blood Cells 115 /100 WBC Differential Comment FINAL DIFF MANUAL Platelet Estimate NORMAL Platelet Morphology Comment NORMAL Polychromasia 4.8 % Basophilic Stippling FAINT Sickle Cells 1+ Target Cells 2+ [place] Bodies PRESENT Red Cell Morphology Comment Blood Urea Nitrogen 4 MG/DL Creatinine 0.56 MG/DL Random Glucose 78 MG/DL Total Protein 8.1 GM/DL Albumin 3.6 GM/DL Calcium Level 9.3 MG/DL Alkaline Phosphatase 229 U/L Aspartate Amino Transf (AST/SGOT) 74 U/L Alanine Aminotransferase (ALT/SGPT) 45 U/L Total Bilirubin 2.5 MG/DL Sodium Level 140 MEQ/L Potassium Level 4.2 MEQ/L Chloride Level 106 MEQ/L Carbon Dioxide Level 27.9 MEQ/L Anion Gap 6 MEQ/L Estimat Glomerular Filtration Rate 136 ML/MIN Culture Results Microbiology Date/Time Source Procedure Growth Status 08/16/17 18:45 Blood Peripheral Aerobic Blood Culture - Preliminary NO GROWTH IN 2 DAYS Resulted 08/16/17 18:45 Blood Peripheral Anaerobic Blood Culture - Preliminary NO GROWTH IN 2 DAYS Resulted 08/16/17 18:40 Blood Peripheral Aerobic Blood Culture - Preliminary NO GROWTH IN 2 DAYS Resulted 08/16/17 18:40 Blood Peripheral Anaerobic Blood Culture - Preliminary NO GROWTH IN 2 DAYS Resulted Administered Medications Medications (Trade) Dose Ordered Sig/[place] Route PRN Reason Start Time Stop Time Status Last Admin Dose Admin Sodium Chloride (NS Flush) 2 ml BID IV FLUSH 08/16/17 21:00 08/17/17 09:16 Ondansetron HCl (Zofran Inj) 4 mg Q6H PRN IVP NAUSEA OR VOMITING 08/16/17 20:45 08/17/17 13:37 Potassium Chloride/Sodium Chloride 1,000 ml @ 125 mls/hr Q8H IV 08/16/17 22:00 08/18/17 07:44 Acetaminophen/ Hydrocodone Bitart ([place] 10-325 Mg) 1 tab Q4H PRN PO PAIN 1-5 08/16/17 20:45 08/18/17 07:45 Hydromorphone HCl (Dilaudid Pf Inj) 2 mg Q4H PRN IV PUSH pain 6-10 08/16/17 20:45 08/18/17 11:37 Hydroxyurea (Hydrea) 500 mg DAILY PO 08/17/17 09:00 08/18/17 07:46 Metoprolol Tartrate (Lopressor) 75 mg BIDAC PO 08/17/17 07:00 08/17/17 17:17 Docusate Sodium (Colace) 100 mg BID PO 08/17/17 21:00 08/18/17 07:45 Objective Remarks GENERAL: Middle-aged female, laying in bed, she appears to be comfortable. Well- nourished, well-developed patient. SKIN: Warm and dry. HEAD: Normocephalic. EYES: No scleral icterus. No injection or drainage. NECK: Supple, trachea midline. No JVD or lymphadenopathy. LYMPHATIC: No adenopathy. CARDIOVASCULAR: Regular rate and rhythm without murmurs. RESPIRATORY: Breath sounds equal bilaterally. No accessory muscle use. Good air movement bilaterally without evidence of basilar crepitus or crackles. No pleural rubs. GASTROINTESTINAL: Abdomen soft, non-tender, nondistended. EXTREMITIES: No cyanosis, or edema. MUSCULOSKELETAL: Adequate muscle tone. Left lower extremity distal leg, crusted lesion measuring approximate 1.5 cm across. No evidence of infection, some tenderness inferior and distal to the crusted lesion. NEUROLOGICAL: No obvious focal deficit. Awake, alert, and oriented x3. PSYCHIATRIC: Appropriate mood and affect; insight and judgment normal. Assessment/Plan Assessment 57-year-old lady with a diagnosis of sickle cell disease/beta thalassemia 0. She has been on disease modifying therapy with hydroxyurea, typically her pain crises are quite mild and she rarely requires inpatient hospitalization for management for symptoms. She now presents with a 2 week long sickle cell pain crisis, likely triggered by a sinus infection as well as injury to her left distal leg. She has had 1 previous ER visit for this crisis and one urgently scheduled outpatient hematology visit with myself last week. Over the past 48 hours she has been in the emergency departments clinical decision unit, she has been on IV fluids and a combination of oral and IV pain medications. She seems to be feeling better. Plan 1. Sickle cell disease related pain crisis: Continue hydration, continue combination of IV and oral pain medications. Clinically she is doing well, I expect she will be ready for discharge and next 24-48 hours. X-ray of the left ankle was reviewed, no acute findings demonstrated. Case discussed with Dr. Petersen. Fadi Borges MD Aug 18, 2017 14:54
--- NOTE | 2017-08-18 15:11 | MB ---
cc: Fadi Borges MD DATE OF CONSULT: 08/17/2017 REQUESTING SERVICE: Hospitalist service. REASON FOR CONSULTATION: Patient with history of sickle cell disease/beta thalassemia zero. She is presenting with complaints of nausea, weakness, fatigue. She also reports pain in her back, shoulders, abdomen as well as her lower extremities. She points to a specifically tender and painful area in her distal left leg just above the ankle. She reports this crisis has been ongoing for the past 2 weeks or so. Additional complaints include sinus congestion and cough for which she had been on oral Augmentin for the past 10 days. HISTORY OF PRESENT ILLNESS: Ms. Perez is a very pleasant 57-year-old female who is known to me from my outpatient practice. Ms. Perez has a diagnosis of hemoglobin sickle cell disease/beta thalassemia zero. She has been on disease modifying therapy with hydroxyurea for several months now. Generally, Ms. Perez has rare pain crisis, which require hospitalization. Typically, she is good at maintaining her sickle cell disease related pain crisis with oral hydration, warm compresses and nonsteroidal anti-inflammatories. She rarely requires opioid analgesics. Since I have been caring for her for the past 1-1-/2 years, this is the first time I have seen her as an inpatient. Ms. Perez was seen by me 2 days ago in my outpatient clinic, she had scheduled an appointment to discuss management of her pain. On examination at that time, she was noted to have no cardiopulmonary abnormalities on clinical exam; however, she was noted to have a crusted skin lesion measuring about 1.5 cm across involving her distal left ankle, this did not have the appearance of an infection lesion or of an open venous stasis ulcer, but it was exquisitely tender. She also had diffuse pain in her shoulders as well as in her abdomen. She was hydrated with normal saline and was treated with 2 mg of Dilaudid IV and then sent home. The patient tells me this proved to have little benefit and she presented to the emergency department 24 hours after seeing me in clinic. She remains on observation in the emergency department up until now. PAST MEDICAL HISTORY: 1. Sickle cell disease/beta thalassemia zero. 2. Osteoarthritis. 3. Venous insufficiency ulcers. 4. Cardiac arrhythmia. PAST SURGICAL HISTORY: 1. Ovarian cyst removal in 2007. 2. Cholecystectomy in 1992. 3. Appendectomy in 1990. 4. Colonoscopy in 2013. 5. History of cardiac loop recorder placement about 2 years ago for monitoring of her cardiac arrhythmia. ALLERGIES: PNEUMOCOCCAL VACCINE. FAMILY HISTORY: Reviewed, both parents were carriers of sickle cell trait. Her brother recently of a cardiac arrhythmia. SOCIAL HISTORY: Patient lives at home, she has children who are adults who are supportive and are generally helpful. She is originally from [place]. She is disabled. CURRENT INPATIENT MEDICATIONS: 1. Half normal saline with potassium 125 mL per hour. 2. Hydrocodone/acetaminophen 10/325 one tablet as needed for pain, scale 1-5. 3. Benadryl 25 mg IV x1. 4. Hydromorphone 2 mg IV x1. 5. Hydromorphone 2 mg IV q. 4 hours as needed for pain on pain scale 6-10. 6. Hydrea 500 mg once a day. 7. Milk of magnesia 30 mL p.o. q. 12 hours as needed for constipation. 8. Metoprolol 75 mg p.o. b.i.d. 9. Ondansetron 4 mg IV q. 6 hours as needed for nausea and vomiting. 10. Restoril 15 mg p.o. daily at bedtime. REVIEW OF SYSTEMS: Thirteen point of review of systems were obtained, the following symptoms were reported in addition to what is documented in the HPI and in the reason for consultation section. CONSTITUTIONAL: Patient reports fatigue, loss of appetite. She reports feeling feverish, but denies documented fevers. HEENT: Reports headaches, sinus congestion, reports postnasal drip. She denies epistaxis or hemoptysis. RESPIRATORY: Reports exertional dyspnea. Reports cough, denies pleuritic chest pain. CARDIOVASCULAR: Reports occasional palpitations. She denies PND, orthopnea or angina-like chest pain. GASTROINTESTINAL: Reports loss of appetite, nausea. She denies diarrhea, constipation, hematochezia or melena. GENITOURINARY: No complaints. CENTRAL NERVOUS SYSTEM: Denies any focal sensory or motor deficits. MUSCULOSKELETAL: Reports sickle cell related pain. SKIN: She reports an area of skin breakdown on her left leg. PHYSICAL EXAMINATION: VITAL SIGNS: Temperature 98.3 degrees Fahrenheit, heart rate 84 bpm, respiratory rate 19, blood pressure 110/54, O2 sats are 94% on room air. GENERAL APPEARANCE: Ms. Perez is a middle-aged female, she is laying in bed, she appears to be in some discomfort, she speaks very deliberately and appears that she is in some distress. HEENT: Head is atraumatic, normocephalic. Conjunctivae are pale, sclerae are icteric, EOMI, PERRLA. Oral exam: Pale mucous membranes with an icteric hue. NECK: No cervical lymphadenopathy. RESPIRATORY: Good air movement bilaterally without any added breath sounds, poor inspiratory effort over the bases with decreased air movement. CARDIOVASCULAR: Regular rate and rhythm, S1, S2. No obvious murmurs, rubs, gallops. ABDOMEN: Thin, soft, nontender, nondistended, with palpable organ enlargement, positive bowel sounds. No inguinal lymphadenopathy. LOWER EXTREMITIES: She has no pretibial edema, no calf tenderness but she does have tenderness over the shins, especially on the left side. She has an area of crusted/raised area on the distal medial left leg. This area itself is not tender, but there is an area of tenderness along the inferomedial aspect of this about an inch and a half away from this lesion. There are scars on bilateral lower extremity consistent with previous areas of venous stasis ulcers. CENTRAL NERVOUS SYSTEM: No focal sensory or motor deficits. LABORATORY FINDINGS: Blood work dated 08/17/2017: WBC count 12.5, hemoglobin 7.8 g/dL, hematocrit is 23.7%, MCV 72, platelet count 282, absolute neutrophil count is 4.9, absolute lymphocyte count is 1.6. Noted on the peripheral smear are target cells, sickle cells, basophilic stippling, and polychromasia. A reticulocyte count is 7.3%. Chemistries dated 08/16/2017: Sodium 140, potassium 3.6, chloride 106, bicarb 28.3, BUN 7, creatinine 0.69, EGFR 107, random glucose 95, calcium 8.8, total bilirubin 2.5, AST 76, ALT 57, alkaline phosphatase 255, albumin is 3.6. IMAGING: Chest x-ray dated 08/16/2017 indicates no evidence of acute cardiopulmonary abnormalities, no infiltrates or pleural effusion noted. Left leg ultrasound Doppler dated 08/16/2017 reveals no evidence of thrombosis. X-ray of the left ankle will be ordered. ASSESSMENT: Ms. Perez is a 57-year-old lady with a history of sickle cell disease/beta thalassemia zero. She has been on disease modifying therapy with Hydrea 500mg daily for the past 4 or 5 months. She presents to the hospital with what she describes as a sickle cell crisis associated with pain in her shoulders, back, ribs and abdomen, as well as lower extremities. She has additional symptoms, which she thinks may have triggered this crisis including sinusitis with sinus congestion, cough and chills. This has been effectively treated with oral Augmentin. She tells me she completed a 10-day course of Augmentin yesterday and her sinusitis and her sinus congestion have near completely resolved. The other different/atypical finding and symptom is that of an ulcer over the distal left leg, which she reports developed after she wore an ankle brace/boot to help support her leg after she sprained it. She thinks the boot rubbed on her skin and caused an ulcer. This ulcer is particularly painful. RECOMMENDATIONS: 1. Sickle cell crisis: I would recommend continued hydration with hypotonic IV fluid solution. Continue pain medications with both IV and p.o. opioids. Encourage p.o. intake. 2. I did evaluate her skin lesion, this appears to be not infected, it seems to be healing well. I do not think a podiatry evaluation is needed at this time. I will order an x-ray 3 views of the left ankle to rule out fracture. The hematology service will follow along with you. I would specifically like to mention at this point I do not feel the need for a transfusion if her hemoglobin is 7.8 g/dL. MD RAMSES Bean/jade , 12:02 PM , 03:54 PM ANA
[2017-08-18] MEDS: ONDANSETRON HCL 4 MG/2 ML VIAL IVP PRN (20:24)
[2017-08-19] VITALS (25 sets, daily range): BP systolic 103–138; BP diastolic 53–63; PULSE 62–93; RESP 16–18; TEMP 97.9–98.5; O2SAT 93–95
[2017-08-19 04:53] LABS: AUTOMATED NEUTROPHIL # 5.1 TH/MM3 (1.8-7.7); BASOPHIL # 0.3 TH/MM3 (0-0.2); BASOPHIL % 3.2 % (0.0-2.0); EOSINOPHIL # 0.2 TH/MM3 (0-0.4); EOSINOPHIL % 1.5 % (0.0-4.0); HEMATOCRIT 25.2 % (35.0-46.0); HEMOGLOBIN 8.3 GM/DL (11.6-15.3); LYMPH % 30.2 % (9.0-44.0); MEAN CELL VOLUME 72.3 FL (80.0-100.0); MEAN CORPUSCULAR HEMOGLOBIN 23.8 PG (27.0-34.0); MEAN CORPUSCULAR HGB CONC 32.9 % (32.0-36.0); MEAN PLATELET VOLUME 9.1 FL (7.0-11.0); MONO % 13.5 % (0.0-8.0); MONOCYTE # 1.3 TH/MM3 (0-0.9); NEUT % 51.6 % (16.0-70.0); PLATELET COUNT 314 TH/MM3 (150-450); RED BLOOD COUNT 3.48 MIL/MM3 (4.00-5.30); RED CELL DISTRIBUTION WIDTH 23.7 % (11.6-17.2); WHITE BLOOD COUNT 9.8 TH/MM3 (4.0-11.0)
[2017-08-19 04:59] LABS: BICARBONATE 29.1 MEQ/L (21.0-32.0); CALCIUM 8.8 MG/DL (8.5-10.1); CREATININE 0.59 MG/DL (0.50-1.00)
[2017-08-19] MEDS: METOPROLOL TARTRATE 50 MG TAB PO SCH ×2 (06:26→16:08)
[2017-08-19 07:31] LABS: BANDS 4 % (0-6); BASOPHILS 1 % (0-2); CORRECTED NUCLEATED RBC 144 /100 WBC (0-0); LYMPHOCYTES 34 % (9-44); MONOCYTES 5 % (0-8); NEUTROPHIL # MANUAL DIFF 5.7 TH/MM3 (1.8-7.7); NUCLEATED RED BLOOD CELL 144 (0-0); POLYS (SEG NEUTROPHILS) 54 % (16-70); SICKLE CELLS 1+ (NORMAL); TARGET CELLS 2+ (NORMAL)
[2017-08-19 07:32] LABS: HOWELL-JOLLY BODIES PRESENT (NONE SEEN)
[2017-08-19] MEDS: DOCUSATE SODIUM 100 MG CAP PO SCH ×2 (08:47→20:16)
[2017-08-19] MEDS: SODIUM CHLORIDE 0.9% FLUSH 10 ML FLUSH IV FLUSH SCH ×2 (08:48→20:16)
[2017-08-19] MEDS: 1/2 NS + KCL 20 MEQ INJ 1,000 ML IV SCH ×3 (08:48→22:25)
[2017-08-19] MEDS: HYDROXYUREA 500 MG CAP PO SCH (08:54)
--- NOTE | 2017-08-19 11:06 | HHI.PR ---
Subjective Remarks still complains of her typical sickle pain crisis sx's also chronic pain and stiffness of left lower leg/ankle. Objective Vitals heart reg lung cta abd s/nt no edema Vital Signs Date Time Temp Pulse Resp B/P (MAP) Pulse Ox O2 Delivery O2 Flow Rate FiO2 08/19/17 10:00 68 08/19/17 09:00 66 08/19/17 08:00 93 08/19/17 07:15 98.3 67 16 116/55 (75) 94 08/19/17 07:00 62 08/19/17 04:06 77 08/19/17 03:04 68 08/19/17 03:02 97.9 68 18 111/53 (72) 93 08/19/17 02:03 68 08/19/17 01:00 73 08/18/17 23:00 95 08/18/17 22:36 98.4 70 17 148/67 (94) 93 08/18/17 21:50 18 08/18/17 21:19 16 08/18/17 20:10 98.6 77 18 120/71 (87) 96 08/18/17 18:00 98.0 70 20 128/66 (86) 96 08/18/17 12:18 98.2 60 20 110/60 (77) 96 08/19/17 08/19/17 08/20/17 15:00 23:00 07:00 Intake Total 990 ml Balance 990 ml IV Total 990 ml Result Diagram: 08/19/17 0435 08/19/17 0435 Imaging Last Impressions Ankle X-Ray 08/17/17 0000 Signed Impressions: Service Date/Time: Thursday, August 17, 2017 12:50 - CONCLUSION: Unremarkable examination of the left ankle. Clovis Altman MD Lower Extremity Ultrasound 08/16/[id number] Signed Impressions: Service Date/Time: Wednesday, August 16, 2017 18:55 - CONCLUSION: No evidence of deep venous thrombosis within the left lower extremity. Paul Maldonado MD Chest X-Ray [id number]/16/[id number] Signed Impressions: Service Date/Time: Wednesday, August 16, 2017 18:49 - CONCLUSION: No significant change compared to 08/06/17. Paul Maldonado MD A/P Problem List: (1) Sickle cell crisis ICD Codes: D57.00 - Sickle cell crisis Status: Acute Plan: cont ivf po/iv pain meds prn. trying to use less iv she reports getting some relief with alleve and so will order a few doses overnight. plan to d/c tomorrow. she is not feeling ready today. ambulate. discussed with her oncologist; (2) Sickle cell anemia ICD Codes: D57.1 - Sickle-cell disease without crisis Status: Chronic Plan: See above (3) Leg pain ICD Codes: M79.606 - Pain in leg, unspecified Status: Chronic Plan: Patient does have a remote history of DVT anticoagulation was stopped in 2005 secondary to hemorrhagic ovarian cyst Patient presents to the department with complaints of left lower extremity edema and pain Ultrasound completed 08/16/2017 conclusion no evidence of deep vein thrombosis within the left lower extremity X ray LLE reviewed normal exam. skin LLE consistent with healing venous stasis ulceration. dried scab present. No drainage, erythema or warmth noted. will apply SCOTTIE hose to LLE recommend elevation and rest of LLE (4) Palpitations ICD Codes: R00.2 - Palpitations Status: Chronic Plan: The patient does have a history of palpitations does have an implanted loop recorder Will continue patient's home metoprolol 75 mg by mouth twice a day Problem Qualifiers (1) Sickle cell anemia: Qualified Codes: D57.00 - Hb-SS disease with crisis, unspecified Dominic Claire MD Aug 19, 2017 11:06
[2017-08-19] MEDS: ACETAMINOPHEN/HYDROcodone 325 MG/10 MG TAB PO PRN (11:50)
[2017-08-19] MEDS ORDERED: NAPROXEN 500 MG TAB PO ONE (13:00)
[2017-08-19] MEDS: HYDROmorphone HCL PF 2 MG/ML VIAL IV PUSH PRN ×2 (14:42→20:16)
[2017-08-19] MEDS: ONDANSETRON HCL 4 MG/2 ML VIAL IVP PRN (17:25)
[2017-08-19] MEDS: NAPROXEN 500 MG TAB PO SCH (20:16)
[2017-08-20] VITALS (12 sets, daily range): BP systolic 116–121; BP diastolic 56–58; PULSE 58–87; RESP 14–16; TEMP 98.5–98.7; O2SAT 93–94
[2017-08-20] MEDS: METOPROLOL TARTRATE 50 MG TAB PO SCH (06:01)
[2017-08-20] MEDS: 1/2 NS + KCL 20 MEQ INJ 1,000 ML IV SCH (06:01)
--- NOTE | 2017-08-20 08:16 | PD.ONC.PN ---
Subjective Subjective Remarks Ms. Perez was seen and examined this morning, vital signs, labs and medications reviewed. Subjectively; the patient reports improvement in her pain, she seems to have responded well to the naproxen tablets last night, she has been ambulating without difficulty and has been also eating without nausea or vomiting. The patient tells me she is looking forward to going home today. She denies difficulty breathing, chest pain, PND, orthopnea, fevers or overt bleeding. Objective Data Date Time Temp Pulse Resp B/P (MAP) Pulse Ox O2 Delivery O2 Flow Rate FiO2 08/20/17 08:02 69 08/20/17 08:00 66 08/20/17 07:59 98.7 62 16 121/58 (79) 94 08/20/17 07:00 63 08/20/17 07:00 98.7 63 14 121/58 (79) 93 08/20/17 06:00 87 08/20/17 05:00 59 08/20/17 04:00 64 08/20/17 03:10 98.5 61 16 116/56 (76) 94 08/20/17 03:00 58 08/20/17 02:00 64 08/20/17 01:00 70 08/20/17 00:00 66 08/19/17 23:00 98.4 66 16 122/60 (80) 95 08/19/17 23:00 68 08/19/17 22:00 74 08/19/17 21:00 64 08/19/17 20:00 70 08/19/17 19:45 98.5 70 16 138/63 (88) 95 08/19/17 19:00 72 08/19/17 18:00 64 08/19/17 17:00 69 08/19/17 16:11 109/53 (71) 08/19/17 16:00 70 08/19/17 15:14 18 08/19/17 15:14 18 08/19/17 15:00 70 08/19/17 15:00 98.5 74 18 124/60 (81) 93 08/19/17 14:08 19 08/19/17 14:00 70 08/19/17 13:00 71 08/19/17 12:00 69 08/19/17 11:00 98.2 69 16 103/58 (73) 95 08/19/17 11:00 83 08/19/17 10:00 68 08/19/17 09:00 66 08/20/17 08/20/17 08/20/17 07:00 15:00 23:00 Intake Total 1692 ml Output Total 1600 ml Balance 92 ml Result Diagram: 08/19/17 0435 08/19/17 0435 Administered Medications Medications (Trade) Dose Ordered Sig/[place] Route PRN Reason Start Time Stop Time Status Last Admin Dose Admin Sodium Chloride (NS Flush) 2 ml BID IV FLUSH 08/16/17 21:00 08/19/17 20:16 Ondansetron HCl (Zofran Inj) 4 mg Q6H PRN IVP NAUSEA OR VOMITING 08/16/17 20:45 08/19/17 17:25 Potassium Chloride/Sodium Chloride 1,000 ml @ 125 mls/hr Q8H IV 08/16/17 22:00 08/20/17 06:01 Acetaminophen/ Hydrocodone Bitart ([place] 10-325 Mg) 1 tab Q4H PRN PO PAIN 1-5 08/16/17 20:45 08/19/17 11:50 Hydromorphone HCl (Dilaudid Pf Inj) 2 mg Q4H PRN IV PUSH pain 6-10 08/16/17 20:45 08/19/17 20:16 Hydroxyurea (Hydrea) 500 mg DAILY PO 08/17/17 09:00 08/19/17 08:54 Metoprolol Tartrate (Lopressor) 75 mg BIDAC PO 08/17/17 07:00 08/20/17 06:01 Docusate Sodium (Colace) 100 mg BID PO 08/17/17 21:00 08/19/17 20:16 Naproxen (Naprosyn) 500 mg Q12HR PO 08/19/17 21:00 08/19/17 20:16 Objective Remarks Gen.: Middle-aged lady laying in bed, appears to be no acute distress is a pleasant disposition. She is conversing in full sentences. SKIN: Warm and dry. HEAD: Normocephalic. EYES: No scleral icterus. No injection or drainage. NECK: Supple, trachea midline. No JVD or lymphadenopathy. LYMPHATIC: No adenopathy. CARDIOVASCULAR: Regular rate and rhythm without murmurs. RESPIRATORY: Breath sounds equal bilaterally. No accessory muscle use. Good air movement bilaterally without evidence of basilar crepitus or crackles. No pleural rubs. GASTROINTESTINAL: Abdomen soft, non-tender, nondistended. EXTREMITIES: No cyanosis, or edema. MUSCULOSKELETAL: Adequate muscle tone. Left lower extremity distal leg, crusted lesion measuring approximate 1.5 cm across. No evidence of infection, some tenderness inferior and distal to the crusted lesion. NEUROLOGICAL: No obvious focal deficit. Awake, alert, and oriented x3. PSYCHIATRIC: Appropriate mood and affect; insight and judgment normal. Assessment/Plan Assessment 57-year-old lady with a diagnosis of sickle cell disease/beta thalassemia 0. She has been on disease modifying therapy with hydroxyurea, typically her pain crises are quite mild and she rarely requires inpatient hospitalization for management for symptoms. She now presents with a 2 week long sickle cell pain crisis, likely triggered by a sinus infection as well as injury to her left distal leg. She has had 1 previous ER visit for this crisis and one urgently scheduled outpatient hematology visit with myself last week. Over the past 48 hours she has been in the emergency departments clinical decision unit, she has been on IV fluids and a combination of oral and IV pain medications. She seems to be feeling better. Plan 1. Sickle cell disease related pain crisis: She reports her pain to have improved over the past 24 hours. She is not required IV pain medications overnight, she is comfortable with the pain control on oral naproxen and hydrocodone/acetaminophen. She has been on IV fluids but is also drinking well. She is afebrile. Follow-up with me has been scheduled in the upcoming weeks. She will be meeting with her primary care physician Dr. Whitaker later this week. X-ray of the left ankle was reviewed, no acute findings demonstrated. Fadi Borges MD Aug 20, 2017 08:16
[2017-08-20] MEDS ORDERED: NAPR500 PO (08:17)
--- NOTE | 2017-08-20 08:17 | HHI.DCPOC ---
Discharge Care Plan Diagnosis: (1) Sickle cell crisis Goals to Promote Your Health * To prevent worsening of your condition and complications * To maintain your health at the optimal level Directions to Meet Your Goals Take your medications as prescribed Follow your dietary instruction Follow activity as directed Keep your appointments as scheduled Take your immunizations and boosters as scheduled If your symptoms worsen call your PCP, if no PCP go to Urgent Care Center or Emergency Room Smoking is Dangerous to Your Health. Avoid second hand smoke Call the 24-hour hour crisis hotline for domestic abuse at Dominic Claire MD Aug 20, 2017 08:17
[2017-08-20] MEDS: SODIUM CHLORIDE 0.9% FLUSH 10 ML FLUSH IV FLUSH SCH (08:20)
[2017-08-20] MEDS: NAPROXEN 500 MG TAB PO SCH (08:20)
[2017-08-20] MEDS: DOCUSATE SODIUM 100 MG CAP PO SCH (08:20)
--- NOTE | 2017-08-20 08:21 | HHI.DS ---
Discharge Summary Admission Date Aug 17, 2017 at 12:45 Discharge Date: Aug 20, 2017 Admitting Diagnosis sickle cell crisis (1) Sickle cell crisis Diagnosis: Principal ICD Codes: D57.00 - Sickle cell crisis Status: Acute (2) Sickle cell anemia Diagnosis: Secondary ICD Codes: D57.1 - Sickle-cell disease without crisis Status: Chronic (3) Leg pain Diagnosis: Secondary ICD Codes: M79.606 - Pain in leg, unspecified Status: Chronic (4) Palpitations Diagnosis: Secondary ICD Codes: R00.2 - Palpitations Status: Chronic Brief History This 87-year-old female patient with past medical history which includes sickle cell anemia follows with Dr. Borges, osteoarthritis arthritis, bilateral ovarian cyst with history of hemorrhagic cyst associated with anemia, bowel obstruction 2005, DVT anticoagulation was stopped in 2005, right eye vitreous hemorrhage with blindness. Patient presents with the chief complaint of leg and low back pain related to sickle cell anemia. Patient reports she's had this pain which she believes is related to sickle cell crisis since August 06. Patient was also seen in the emergency department August 06 and August 15. She states that she has been to the infusion clinic twice since then and treated with IV fluids and IV narcotics. She takes oxycodone at home. Despite this, she continues to have significant pain. She is complaining with some left lower extremity pain. She states that she's had an ulcerative lesion been treated with antibiotics. She states that it continues to see severe pain. She states her primary care provider has attempted to arrange an outpatient ultrasound without success thus far. She did have an ultrasound done [facility] August 06 was negative for DVT. Patient reports the IV Dilaudid given in emergency department did decrease her pain. Patient denies fevers chills nausea vomiting diarrhea constipation chest pain or shortness of breath. CBC/BMP: 08/19/17 0435 08/19/17 0435 Significant Findings Laboratory Tests Test 08/18/17 07:40 08/19/17 04:35 Red Blood Count 3.73 MIL/MM3 (4.00-5.30) 3.48 MIL/MM3 (4.00-5.30) Hemoglobin 8.8 GM/DL (11.6-15.3) 8.3 GM/DL (11.6-15.3) Hematocrit 26.8 % (35.0-46.0) 25.2 % (35.0-46.0) Mean Corpuscular Volume 71.7 FL (80.0-100.0) 72.3 FL (80.0-100.0) Mean Corpuscular Hemoglobin 23.5 PG (27.0-34.0) 23.8 PG (27.0-34.0) Red Cell Distribution Width 23.7 % (11.6-17.2) 23.7 % (11.6-17.2) Monocytes (%) (Auto) 12.4 % (0.0-8.0) 13.5 % (0.0-8.0) Monocytes # (Auto) 1.3 TH/MM3 (0-0.9) 1.3 TH/MM3 (0-0.9) Monocytes % 9 % (0-8) Nucleated Red Blood Cells 115 /100 WBC (0-0) 144 /100 WBC (0-0) Polychromasia 4.8 % (0.0-1.9) 3.0 % (0.0-1.9) Basophilic Stippling FAINT (NORMAL) Sickle Cells 1+ (NORMAL) 1+ (NORMAL) Target Cells 2+ (NORMAL) 2+ (NORMAL) Blood Urea Nitrogen 4 MG/DL (7-18) 4 MG/DL (7-18) Alkaline Phosphatase 229 U/L (45-117) Aspartate Amino Transf (AST/SGOT) 74 U/L (15-37) Total Bilirubin 2.5 MG/DL (0.2-1.0) Basophils (%) (Auto) 3.2 % (0.0-2.0) Basophils # (Auto) 0.3 TH/MM3 (0-0.2) Random Glucose 121 MG/DL (74-106) Anion Gap 3 MEQ/L (5-15) Hospital Course (1) Sickle cell crisis Pt admitted with her usual sickle cell pain crisis symptoms chest and back pains. She was given aggressive ivf hydration with prn dilaudid and norco. Also responded well to naprosyn and she usually uses alleve at home. On day of dc pt said her crisis was resolving and she could manage at home. she was eating and drinking well and will f/u pcp this week. Discussed with her associate account director at bedside who agreed. Pt Condition on Discharge: Stable Discharge Disposition: Discharge Home Discharge Instructions DIET: Follow Instructions for: As Tolerated, No Restrictions Activities you can perform: Regular-No Restrictions Follow up Referrals: PCP Follow-up - [address] donald gamble New Medications: Naproxen (Naprosyn) 500 Mg Tab 500 MG PO Q12HR for Pain Management, #6 TAB Continued Medications: Hydroxyurea (Hydrea) 500 Mg Cap 500 MG PO DAILY, CAP 0 Refills Metoprolol Tartrate (Metoprolol Tartrate) 50 Mg Tab 75 MG PO BIDAC, #60 TAB 0 Refills Oxycodone (Oxycodone) 5 Mg Cap 5 MG PO Q8H PRN for PAIN, CAP 0 Refills Dominic Claire MD Aug 20, 2017 08:21
[2017-08-20] MEDS: HYDROXYUREA 500 MG CAP PO SCH (08:22)
== END 2017-08-20 09:20 | disposition home or self-care (01) | DRG 812 ==
LOC: NEPE 18:07 → NEDA 20:48 → NEPFCDU 22:04 → OBSVTOIN 08-17 12:45 → HCIN 08-18 17:29 → HCPC 08-18 21:54
PROVIDERS: ADMIT Hospitalist; ATTEND Hospitalist
DX: D57.00 Hb-SS disease with crisis, unspecified (principal); L97.929 Non-pressure chronic ulcer of unspecified part of left lower leg with unspecified severity; H54.61 Unqualified visual loss, right eye, normal vision left eye; R00.2 Palpitations; Z86.718 Personal history of other venous thrombosis and embolism; I83.029 Varicose veins of left lower extremity with ulcer of unspecified site; M19.90 Unspecified osteoarthritis, unspecified site
CPT/HCPCS: 71045; 73610; 76937; 80048; 80053; 81001; 85007; 85027; 85044; 87040; 93005; 93971; 96360; 96361; 96365; 96375; 96376; G0378; G8987-GP; G8988-GP; J1170; J1200; J2405; J7030

== ENCOUNTER 2017-10-22 14:08 | Emergency (ER) | payer OTHER ==
[2017-10-22] MEDS: LORazepam 2 MG/ML VIAL IM (15:26)
[2017-10-22] MEDS: METOPROLOL TARTRATE 5 MG/5 ML VIAL IVS (16:14)
[2017-10-22] MEDS: SODIUM CHLOR 0.9% 1000 ML INJ 1,000 ML IV (16:14)
[2017-10-22 16:18] LABS: HEMATOCRIT 32.2 % (35.0-46.0); HEMOGLOBIN 10.5 GM/DL (11.6-15.3); MEAN CELL VOLUME 78.8 FL (80.0-100.0); MEAN CORPUSCULAR HEMOGLOBIN 25.6 PG (27.0-34.0); MEAN CORPUSCULAR HGB CONC 32.5 % (32.0-36.0); PLATELET COUNT 292 TH/MM3 (150-450); RED BLOOD COUNT 4.09 MIL/MM3 (4.00-5.30); RED CELL DISTRIBUTION WIDTH 22.1 % (11.6-17.2)
[2017-10-22 16:24] LABS: HEMO FLAGS AUTO DIFF
[2017-10-22 16:40] LABS: ANION GAP 10 MEQ/L (5-15); APTT (PATIENT) 21.1 SEC (24.3-30.1); AST (GOT) 102 U/L (15-37); BICARBONATE 25.1 MEQ/L (21.0-32.0); BLOOD UREA NITROGEN 8 MG/DL (7-18); CALCIUM 10.1 MG/DL (8.5-10.1); CHLORIDE 107 MEQ/L (98-107); CREATININE 0.71 MG/DL (0.50-1.00); GLOMERULAR FILTRATION RATE 103 ML/MIN (>89); GLUCOSE,RANDOM 92 MG/DL (74-106); LIPASE 120 U/L (73-393); PROTHROMBIN TIME - PATIENT 10.1 SEC (9.8-11.6); SODIUM (NA) 142 MEQ/L (136-145)
[2017-10-22 16:43] LABS: POTASSIUM 3.9 MEQ/L (3.5-5.1)
[2017-10-22 16:47] LABS: ALKALINE PHOSPHATASE 299 U/L (45-117); ALT (GPT) 46 U/L (10-53); CREATINE KINASE 273 U/L (26-192); TOTAL BILIRUBIN ADULT 3.3 MG/DL (0.2-1.0); TROPONIN I LESS THAN 0.02 NG/ML (0.02-0.05)
[2017-10-22 17:01] LABS: CKMB 2.4 NG/ML (0.5-3.6); CKMB % 0.9 % (0.0-4.0)
[2017-10-22 17:07] LABS: B-TYPE NATRIURETIC PEPTIDE 34 PG/ML (0-100)
[2017-10-22 17:34] LABS: BANDS 1 % (0-6); BASOPHILS 1 % (0-2); CORRECTED NUCLEATED RBC 141 /100 WBC (0-0); LYMPHOCYTES 30 % (9-44); MONOCYTES 15 % (0-8); NEUTROPHIL # MANUAL DIFF 5.9 TH/MM3 (1.8-7.7); NUCLEATED RED BLOOD CELL 141 (0-0); OVALOCYTES 1+ (NORMAL); POLYS (SEG NEUTROPHILS) 53 % (16-70); SICKLE CELLS 1+ (NORMAL); TARGET CELLS 3+ (NORMAL); WBC DIFF SAMPLE 100
[2017-10-22 17:35] LABS: HOWELL-JOLLY BODIES PRESENT (NONE SEEN); KERATOCYTES OCC (NORMAL); PLATELET ESTIMATE SMEAR NORMAL (NORMAL); PLATELET MORPHOLOGY NORMAL (NORMAL); SCAN/DIFF FINAL DIFF MANUAL
[2017-10-22] MEDS: IOHEXOL 350 MG/ML 10 ML VIAL (for RAD DIAG) IVCONTRAST (19:27)
== END 2017-10-22 21:53 | disposition home or self-care (01) ==
LOC: NEPC 14:08
DX: R00.2 Palpitations (principal); I10 Essential (primary) hypertension; Z79.899 Other long term (current) drug therapy
CPT/HCPCS: 71045; 71275; 80053; 82550; 82552; 83690; 83735; 83880; 84443; 84484; 85007; 85027; 85610; 85730; 93005; 96361; 96372; 96374; 99285-25

== ENCOUNTER 2018-05-30 10:21 | Inpatient (IN) ==
[2018-05-30] MEDS ORDERED: HYDROmorphone PF Inj 0.5 MG/0.5 ML Syringe IV.PUSH STA ×2 (11:10→14:14)
[2018-05-30] MEDS ORDERED: Sod Chloride 0.9% Inj 1,000 ML IV.SIG SCH (11:15)
--- NOTE | 2018-05-30 11:55 | XR ---
EXAM DATE: 05/30/2018 11:51 AM EST AGE/SEX: 58 years / Female INDICATIONS: . Left sided chest pain. CLINICAL DATA: This is the patient's initial encounter. Patient reports that signs and symptoms have been present for 2 weeks and indicates a pain score of 8/10. MEDICAL/SURGICAL HISTORY: Sickle Cell disease. . Infusaport. Loop recorder. COMPARISON: [facility], CHEST 1V SINGLE AP, 05/15/2018. . FINDINGS: [id number]-[id number] in good position. Minimal cardiomegaly with mild interstitial prominence. No pneumothor ax. No other consolidation degenerative changes about the left shoulder. CONCLUSION: Cardiomegaly with mild interstitial prominence Electronically signed by: Hossein Smith MD Board Certified Radiologist 05/30/2018 11:54 AM EST
[2018-05-30 11:57] LABS: Albumin 3.7 g/dL (3.4-5.0); Anion Gap 9 meq/L (5-15); Aspartate Aminotransferase 101 U/L (15-37); Blood Urea Nitrogen 5 mg/dL (7-18); Calcium 9.1 mg/dL (8.5-10.1); Carbon Dioxide 24.6 meq/L (21.0-32.0); Chloride 106 meq/L (98-107); Glomerular Filtration Rate Greater Than 89 mL/min (>89); Glucose,Random 78 mg/dL (74-106); Potassium 4.1 meq/L (3.5-5.1); Sodium 140 meq/L (136-145)
[2018-05-30 11:59] LABS: Alanine Aminotransferase 51 U/L (10-53); Alkaline Phosphatase 257 U/L (45-117); Lactate Dehydrogenase 704 U/L (84-246); Total Protein 8.3 g/dL (6.4-8.2)
[2018-05-30 13:58] LABS: Hematocrit 24.9 % (35.0-46.0); Hemoglobin 8.4 gm/dL (11.6-15.3); Mean Corpuscular HGB Conc 33.6 % (32.0-36.0); Mean Corpuscular Hemoglobin 25.5 pg (27.0-34.0); Mean Corpuscular Volume 75.8 fL (80.0-100.0); Mean Platelet Volume 10.2 fL (7.0-11.0); Platelet Count 218 th/mm3 (150-450); Red Blood Count 3.29 mil/mm3 (4.00-5.30); Reticulocyte Percent 11.3 % (0.4-3.0); White Blood Count 15.6 th/mm3 (4.0-11.0)
--- NOTE | 2018-05-30 14:19 | ED ---
HPI General Chief complaint: Abdominal Pain Stated complaint: Left Side Pain/Sickle Cell Complaint Time Seen by Provider: 05/30/18 10:40 Source: patient Mode of arrival: ambulatory Limitations: no limitations History of Present Illness HPI narrative: Patient is a 58 year old female with history of sickle cell disease, who comes in complaining of left sided rib pain. She says this has been going on for the past several days. She went to [facility] on Saturday where she says she had a CT of her abdomen/pelvis done and an ultrasound of her leg, which she says were all normal. She says she has been having issues with a crisis since having an ERCP at the end of April. She went to see her primary doctor today who told her to come to the ED for admission. Severity is moderate. She takes Oxycodone at home for pain. Related Data Home Medications Medication Instructions Recorded Confirmed hydroxyurea 500 mg PO HS 01/17/18 05/30/18 metoprolol tartrate 1.5 tab PO BID 01/17/18 05/30/18 oxycodone 5 mg PO Q4-6H PRN 01/17/18 05/30/18 lactulose 30 g PO BID PRN 05/30/18 05/30/18 Allergies Allergy/AdvReac Type Severity Reaction Status Date / Time ceftriaxone [From Rocephin] Allergy Edema, Verified 05/30/18 10:30 Localized Review of Systems ROS: all other systems reviewed are negative Constitutional Denies chills and Denies fever(s) ENT Denies dizziness Cardiovascular Denies chest pain and Denies dyspnea Respiratory Denies cough Gastrointestinal Denies abdominal pain, Denies nausea and Denies vomiting Musculoskeletal Reports myalgias and Reports arthralgias Integumentary/Breasts Denies sores and Denies wounds Neurologic Denies focal weakness and Denies numbness [facility] Medical History Medical History Abdominal wall pain (Acute) Anemia (Acute) Anserine bursitis (Acute) Anxiety (Acute) Arthritis of knee (Acute) BPPV (benign paroxysmal positional vertigo) (Acute) Back pain (Acute) Bacterial conjunctivitis of both eyes (Acute) Benign colon polyp (Acute) Constipation (Acute) DVT (deep venous thrombosis) (Acute) Elevated transaminase level (Acute) GERD (gastroesophageal reflux disease) (Acute) HCV antibody positive (Acute) HTN (hypertension) (Acute) Intestinal adhesions (Acute) Left leg swelling (Acute) Leiomyoma of uterus (Acute) Lumbago (Acute) Myopia of both eyes (Acute) Pain in female pelvis (Acute) Paroxysmal atrial fibrillation (Acute) Pelvic abscess in female (Acute) Peripheral neuropathy (Acute) Port-A-Cath in place (Acute) Posterior capsular opacification visually significant of right eye (Acute) Pseudophakia, right eye (Acute) Psychophysiological insomnia (Acute) Scoliosis (Acute) Sickle cell anemia (Acute) Sickle cell retinopathy (Acute) Varicella (Acute) Vitamin D deficiency (Acute) Vitreous hemorrhage of right eye (Acute) Social History Social History Substance History: No History of Abuse Second Hand Smoke Exposure: No Smoking Status: Never smoker How Often Do You Have a Drink Containing Alcohol: Never Recent Travel in [facility] within the Last 8 Weeks: No Recent Out of Country Travel within the Last 8 Weeks: No Immunization History Tetanus Immunization: Unsure Exam Narrative Exam Narrative: GENERAL: Awake and alert, in no acute distress. SKIN: Focused skin assessment warm/dry. No wounds or signs of infection. HEAD: Atraumatic. Normocephalic. EYES: Pupils equal and round. No scleral icterus. No injection or drainage. ENT: Mucous membranes pink and moist. NECK: Trachea midline. No JVD. CARDIOVASCULAR: Regular rate and rhythm. No murmur appreciated. RESPIRATORY: No accessory muscle use. Clear to auscultation. Breath sounds equal bilaterally. GASTROINTESTINAL: Abdomen soft, non-tender, nondistended. MUSCULOSKELETAL: No obvious deformities. No clubbing. No cyanosis. No edema. NEUROLOGICAL: Awake and alert. No obvious cranial nerve deficits. Motor grossly within normal limits. Normal speech. PSYCHIATRIC: Appropriate mood and affect; insight and judgment normal. Course Initial Documented Vital Signs Temperature 99.6 F 05/30/18 10:28 Pulse Rate 95 H 05/30/18 10:28 Respiratory Rate 20 05/30/18 10:28 Blood Pressure 133/61 05/30/18 10:28 Pulse Oximetry 97 05/30/18 10:28 Last Documented Vital Signs Temperature 99.6 F 05/30/18 10:28 Pulse Rate 96 H 05/30/18 14:17 Respiratory Rate 16 05/30/18 14:17 Blood Pressure 133/65 05/30/18 14:17 Pulse Oximetry 94 L 05/30/18 14:17 Medical Decision Making MDM Narrative Medical decision making narrative: Patient is a 58 year old female who comes in complaining of left sided rib pain, which she says is consistent with her sickle cell pain. IV established, labs sent. Labs show a WBC count of 15.6, Hgb is 8.4. Given pain medicine. CXR shows interstitial prominence. Patient admitted for further management. Medical Screen Exam Complete: Yes Emergency Medical Condition: Yes Differential Diagnosis Differential Diagnosis: sickle cell crisis vs pneumonia vs acute chest vs dehydration Medical Records Medical records reviewed: Yes I reviewed the patient's medical records. Lab Data Lab results reviewed: Yes I reviewed the patient's lab results. Result diagrams: 05/30/18 13:24 05/30/18 11:24 Lab Results 05/30/18 05/30/18 05/30/18 Range/Units 11:24 13:24 13:24 WBC 15.6 H (4.0-11.0) th/mm3 RBC 3.29 L (4.00-5.30) mil/mm3 Hgb 8.4 L (11.6-15.3) gm/dL Hct 24.9 L (35.0-46.0) % MCV 75.8 L (80.0-100.0) fL MCH 25.5 L (27.0-34.0) pg MCHC 33.6 (32.0-36.0) % RDW 23.0 H (11.6-17.2) % Plt Count 218 (150-450) th/mm3 MPV 10.2 (7.0-11.0) fL Prelim Diff (Auto) Manual diff required WBC Differential Manual diff final Seg Neuts % (Manual) 53 (16-70) % Band Neuts % (Manual) 3 (0-6) % Lymphocytes % (Manual) 31 (9-44) % Monocytes % (Manual) 11 H (0-8) % Basophils % (Manual) 1 (0-2) % Metamyelocytes % (Man) 1 (0-1) % Abs Neuts (Manual) 8.9 H (1.8-7.7) th/mm3 Nucleated RBCs/100 WBC 169 H (0-0) /100 WBC Differential Comment . Platelet Estimate Normal (Normal) Platelet Morphology Normal (Normal) Polychromasia 3.5 H (0.0-1.9) % Basophilic Stippling Heavy H (None) Sickle Cells 1+ H (None) Target Cells 2+ H (None) Ovalocytes 1+ H (None) [place] Bodies Present H (None) Retic Count 11.3 H 10.9 H (0.4-3.0) % Absolute Retic 372.2 H 356.2 H (20.0-150.0) mil/L Sodium 140 (136-145) meq/L Potassium 4.1 (3.5-5.1) meq/L Chloride 106 (98-107) meq/L Carbon Dioxide 24.6 (21.0-32.0) meq/L Anion Gap 9 (5-15) meq/L BUN 5 L (7-18) mg/dL Creatinine 0.68 (0.50-1.00) mg/dL Estimated GFR Greater than 89 (>89) mL/min Random Glucose 78 (74-106) mg/dL Calcium 9.1 (8.5-10.1) mg/dL Total Bilirubin 5.5 H (0.2-1.0) mg/dL AST 101 H (15-37) U/L ALT 51 (10-53) U/L Alkaline Phosphatase 257 H (45-117) U/L Lactate Dehydrogenase 704 H (84-246) U/L Total Protein 8.3 H (6.4-8.2) g/dL Albumin 3.7 (3.4-5.0) g/dL Imaging Data Radiologist's impression: Chest X-Ray 05/30/18 11:08 CONCLUSION: Cardiomegaly with mild interstitial prominence Discharge Plan Discharge Disposition Patient Disposition: ED Admit(ED Internal Use Only) Discharge Condition Condition: Stable Discharge Order Discharge Orders: ED Use Only Admit Order (Routine); Ordered 05/30/18 Ordered By: Gisela Eddy Discharge Details Diagnosis: Sickle cell crisis Physicians Team ED Provider: Gisela Eddy Primary Care Provider: Kenneth Whitaker Attending Provider: Dominic Claire Discharge Interventions Interventions: ED Discharge Assessment Last Done: 05/30/18 16:55 Vital Signs Last Done: 05/30/18 14:17 Status ED Status: Admitted Patient
[2018-05-30 14:30] LABS: Lymphocytes 31 % (9-44); Metamyelocytes 1 % (0-1); Monocytes 11 % (0-8); Tallied Nucleated RBC 169 (0-0)
[2018-05-30 14:31] LABS: Howell-Jolly Bodies Present
[2018-05-30 14:32] LABS: Basophilic Stippling Heavy; Polychromasia 3.5 % (0.0-1.9); Sickle Cells 1+; Target Cells 2+
[2018-05-30 14:33] LABS: Ovalocytes 1+; Platelet Estimate Normal (Normal); Platelet Morphology Normal (Normal)
[2018-05-30] MEDS ORDERED: Acetaminophen 325 MG Tablet PO PRN (15:08)
[2018-05-30] MEDS ORDERED: Senna/Docusate Sodium 8.6/50 MG Tablet PO PRN (15:08)
--- NOTE | 2018-05-30 15:23 | P.HPIM ---
History of Present Illness Primary Care Physician: Kenneth Whitaker History of Present Illness: Mrs. Perez is a 58 y/o AAF with sickle cell anemia follows with Dr. Borges, osteoarthritis arthritis, paroxysmal A. fib, bilateral ovarian cyst with history of hemorrhagic cyst associated with anemia, bowel obstruction 2005, hx of DVT in 2005, and hx of right eye vitreous hemorrhage with blindness. Patient presented to the ED at [facility] on 05/30/18 with complaints of left sided rib/back pain related to sickle cell anemia. Patient reports she' s had this pain which she believes is related to sickle cell crisis since she had an EUS with FNA for a pancreatic cyst on May 13, 2018. She takes oxycodone at home but has continued to have significant pain. She reportedly went to [facility] on 05/28/18, where she says she had a CT of her abdomen/pelvis which was negative and CTA of the chest which was negative for PE, noted chronic lung changes and atelectasis and a thyroid nodule. She states her primary care provider, Dr. Whitaker, today and was sent to the ED. Patient reports the IV Dilaudid given in emergency department did decrease her pain. Patient denies fevers/chills, nausea/vomiting, diarrhea, constipation, palpitations or shortness of breath. Past Medical History Sickle-cell anemia with prior history of sickle-cell crisis. 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 Osteoarthritis Bilateral ovarian cyst with history of hemorrhagic cyst associated with anemia Postoperative complications after ovarian cystectomy with pelvic abscess and small bowel obstruction in 2005 Recurrent abdominal pain probably secondary to ovarian masses with hemorrhagic cysts Irregular menstruation Distant history of DVT. Anticoagulation was stopped in '06 after patient had a hemorrhagic cyst Right eye vitreous hemorrhage and blindness Paroxysmal A. 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 No lymphadenopathy noted. Loop recorder implantation, 2016 Laparoscopy Ovarian cystectomy 2007 Exploratory laparotomy Drainage of pelvic abscesses Lysis of adhesion Release of small bowel obstruction Previous laparoscopic ovarian cystectomy Insertion of [place] Appendectomy Cholecystectomy 1992 Bilateral tubal ligation Family History Father has CHF Mother of aneurysm bleed Both parents have sickle trait Social History Denies alcohol use Denies tobacco use Denies illicit drug use Diagnosis (1) Sickle cell crisis: Inpatient Certification Inpatient Certification: I certify that the inpatient services were ordered in accordance with Medicare regulations governing the order. This includes certification that hospital inpatient services are reasonable and necessary and in the case of services not specified as inpatient-only under 42 CFR 419.22(n), that they are appropriately provided as inpatient services in accordance to with the 2-midnight benchmark under 43 CFR 412.3(e) Estimated Total Length of Stay (Days): 3 Plans for Post Hospital Care: Not yet determined Medications and Allergies Allergies Allergy/AdvReac Type Severity Reaction Status Date / Time ceftriaxone [From Rocephin] Allergy Edema, Verified 05/30/18 10:30 Localized Home Medications Medication Instructions Recorded Confirmed Type hydroxyurea 500 mg PO HS 01/17/18 05/30/18 History metoprolol tartrate 1.5 tab PO BID 01/17/18 05/30/18 History oxycodone 5 mg PO Q4-6H PRN 01/17/18 05/30/18 History lactulose 30 g PO BID PRN 05/30/18 05/30/18 History Active Medications: Active Medications Acetaminophen (Tylenol) 650 mg PO Q4H PRN PRN Reason: FEVER Al Hydroxide/Mg Hydroxide (Milk Of Magnesia Liq) 30 ml PO Q6H PRN PRN Reason: CONSTIPATION Albuterol (Duoneb Neb (Prn)) 1 ampul NEB Q4HR NEB PRN PRN Reason: RESPIRATORY DISTRESS Diphenhydramine HCl (Benadryl) 25 mg PO Q4H PRN PRN Reason: ITCHING Docusate Sodium (Colace) 100 mg PO BID ALEJANDRA Folic Acid (Folic Acid) 1 mg PO DAILY ALEJANDRA Hydromorphone HCl (Dilaudid Pf Inj) 1 mg IV.PUSH Q4H PRN PRN Reason: PAIN SCALE 1 TO 5 Sodium Chloride (Ns Inj) 1,000 mls @ 100 mls/hr IV.CONT .Q10H ALEJANDRA Lactulose (Lactulose Liq) ml PO BID PRN PRN Reason: Constipation Metoprolol Tartrate (Lopressor) 75 mg PO BID ALEJANDRA Multivitamins (Theragran) 1 tab PO DAILY ALEJANDRA Ondansetron HCl (Zofran Inj) 4 mg IV.PUSH Q6H PRN PRN Reason: NAUSEA Senna/Docusate Sodium (Patricia-Colace) 2 tab PO DAILY PRN PRN Reason: CONSTIPATION Sodium Chloride (Ns Flush) 2 ml IV.FLUSH BID ALEJANDRA Sodium Chloride (Ns Flush) 2 ml IV.FLUSH PRN PRN PRN Reason: FLUSH AFTER USING IV ACCESS Physical Exam Vital signs: Last Vital Signs Temp 99.6 F 05/30/18 10:28 Pulse 96 H 05/30/18 14:17 Resp 16 05/30/18 14:17 BP 133/65 05/30/18 14:17 Pulse Ox 94 L 05/30/18 14:17 Narrative: GENERAL: NAD, AAOx3 SKIN: Warm and dry. HEENT: Atraumatic. Normocephalic. Pupils equal and round. No scleral icterus. No injection or drainage. No nasal bleeding or discharge. Mucous membranes pink and moist. NECK: Trachea midline. No JVD. CARDIO: Regular. RESP: Clear to auscultation. Breath sounds equal bilaterally. ABD: +BS, soft, non-tender, nondistended. Hepatic and splenic margins not palpable. Pt with back pain on the left mid back along the ribs EXT: Extremities without clubbing, cyanosis, or edema. No obvious deformities. NEURO: Awake and alert. Motor grossly within normal limits. Five out of 5 muscle strength in the arms and legs. Normal speech. PSYCHIATRIC: Appropriate mood and affect; insight and judgment normal. Results Labs CBC & Chem 7: 06/03/18 04:35 06/03/18 04:35 Imaging Chest X-Ray 05/30/18 11:08 CONCLUSION: Cardiomegaly with mild interstitial prominence CTA Chest (05/28/18) 1. No evidence of PE 2. Chronic lung changes with increased density seen involving the lower lobes. This may be related to atelectasis and chronic change. the possibility of developing infiltrates here cannot be fully excluded. 3. Abnormal right sided thyroid nodule 1.7cm CT Abd/pelvis with IV contrast (05/28/18) 1. No acute abnormalities in the abdomen and pelvis. Caprini VTE Risk Assessment Caprini VTE Risk Assessment: Moderate/High Risk (score >= 2) Caprini Risk Assessment Model: Point Value = 1 Point Value = 2 Point Value = 3 Point Value = 5 Age 41-60 Minor surgery BMI > 25 kg/m2 Swollen legs Varicose veins or History of unexplained or recurrent spontaneous Oral contraceptives or hormone replacement Sepsis (< 1 month) Serious lung disease, including pneumonia (< 1 month) Abnormal pulmonary function Acute myocardial infarction Congestive heart failure (< 1 month) History of inflammatory bowel disease Medical patient at bed rest Age 61-74 Arthroscopic surgery Major open surgery (> 45 min) Laparoscopic surgery (> 45 min) Malignancy Confined to bed (> 72 hours) Immobilizing plaster cast Central venous access Age >= 75 History of VTE Family history of VTE Factor V Leiden Prothrombin [id number] Lupus anticoagulant Anticardiolipin antibodies Elevated serum homocysteine Heparin-induced thrombocytopenia Other congenital or acquired thrombophilia Stroke (< 1 month) Elective arthroplasty Hip, pelvis, or leg fracture Acute spinal cord injury (< 1 month) Prophylaxis Regimen: Total Risk Factor Score Risk Level Prophylaxis Regimen 0-1 Low Early ambulation 2 Moderate Order ONE of the following: *Sequential Compression Device (SCD) *Heparin 5000 units SQ BID 3-4 Higher Order ONE of the following medications: *Heparin 5000 units SQ TID *Enoxaparin/Lovenox 40 mg SQ daily (WT < 150 kg, CrCl > 30 mL/min) *Enoxaparin/Lovenox 30 mg SQ daily (WT < 150 kg, CrCl > 10-29 mL/min) *Enoxaparin/Lovenox 30 mg SQ BID (WT < 150 kg, CrCl > 30 mL/min) AND/OR *Sequential Compression Device (SCD) 5 or more Highest Order ONE of the following medications: *Heparin 5000 units SQ TID (Preferred with Epidurals) *Enoxaparin/Lovenox 40 mg SQ daily (WT < 150 kg, CrCl > 30 mL/min) *Enoxaparin/Lovenox 30 mg SQ daily (WT < 150 kg, CrCl > 10-29 mL/min) *Enoxaparin/Lovenox 30 mg SQ BID (WT < 150 kg, CrCl > 30 mL/min) AND *Sequential Compression Device (SCD) Assessment and Plan Assessment (1) Sickle cell crisis: Code(s): D57.00 - Hb-SS disease with crisis, unspecified Status: Acute Plan Sickle Cell crisis - Pt is a 58 y/o AAF with sickle cell anemia follows with Dr. Borges, osteoarthritis arthritis, paroxysmal A. fib, bilateral ovarian cyst with history of hemorrhagic cyst associated with anemia, bowel obstruction 2005, hx of DVT in 2005, and hx of right eye vitreous hemorrhage with blindness. - Patient presented to the ED at [facility] on 05/30/18 with complaints of left sided rib/back pain related to sickle cell anemia. Patient reports she's had this pain which she believes is related to sickle cell crisis since she had an EUS with FNA for a pancreatic cyst on May 13, 2018. She went to [facility] on 05/28/18, where she says she had a CT of her abdomen/ pelvis which was negative and CTA of the chest which was negative for PE, noted chronic lung changes and atelectasis and a thyroid nodule. She states her primary care provider, Dr. Whitaker, today and was sent to the ED. - Patient was given IVF bolus and IV Dilaudid in emergency department which did decrease her pain slightly - Cont. IVF - Cont. Dilaudid 1mg IV Q4H PRN - Monitor labs - Supportive care Paroxysmal A. fib - Cont. Metoprolol 75mg BID - Pt reportedly not a candidate for anticoagulation due to hx of ocular hemorrhage. - Pt with loop recorder in place.
[2018-05-30 15:31] LABS: Reticulocyte Percent 10.9 % (0.4-3.0)
[2018-05-30] MEDS ORDERED: HYDROmorphone PF Inj 2 MG/ML Vial IV.PUSH ONE (15:58)
[2018-05-30] MEDS: Sod Chloride 0.9% Inj 1,000 ML IV.CONT SCH (17:00)
[2018-05-30] MEDS: HYDROmorphone PF Inj 1 MG/ML Ampul IV.PUSH PRN (21:46)
[2018-05-30] MEDS: Metoprolol Tartrate 25 MG Tablet PO SCH (21:47)
[2018-05-30] MEDS: Docusate Sodium 100 MG Capsule PO SCH (21:47)
[2018-05-31] MEDS: Sod Chloride 0.9% Inj 1,000 ML IV.CONT SCH ×3 (02:59→23:10)
[2018-05-31 07:16] LABS: Baso # (Auto) 0.3 th/mm3 (0.0-0.2); Baso % (Auto) 1.9 % (0.0-2.0); Eos % (Auto) 0.3 % (0.0-4.0); Hematocrit 22.9 % (35.0-46.0); Hemoglobin 7.4 gm/dL (11.6-15.3); Lymph # (Auto) 3.7 th/mm3 (1.0-4.8); Lymph % (Auto) 24.5 % (9.0-44.0); Mean Corpuscular HGB Conc 32.2 % (32.0-36.0); Mean Corpuscular Hemoglobin 25.2 pg (27.0-34.0); Mean Corpuscular Volume 78.3 fL (80.0-100.0); Mean Platelet Volume 10.3 fL (7.0-11.0); Mono # (Auto) 1.6 th/mm3 (0.0-0.9); Mono % (Auto) 10.7 % (0.0-8.0); Neut # (Auto) 9.5 th/mm3 (1.8-7.7); Neut % (Auto) 62.6 % (16.0-70.0); Platelet Count 191 th/mm3 (150-450); Red Blood Count 2.93 mil/mm3 (4.00-5.30); Red Cell Distribution Width 24.6 % (11.6-17.2); White Blood Count 15.2 th/mm3 (4.0-11.0)
[2018-05-31 07:26] LABS: Anion Gap 8 meq/L (5-15); Blood Urea Nitrogen 4 mg/dL (7-18); Calcium 8.6 mg/dL (8.5-10.1); Carbon Dioxide 24.7 meq/L (21.0-32.0); Chloride 107 meq/L (98-107); Glomerular Filtration Rate Greater Than 89 mL/min (>89); Glucose,Random 76 mg/dL (74-106); Potassium 4.2 meq/L (3.5-5.1); Sodium 140 meq/L (136-145)
[2018-05-31 07:47] LABS: Howell-Jolly Bodies Present; Lymphocytes 21 % (9-44); Monocytes 5 % (0-8); Myelocytes 1 % (0-0); Platelet Estimate Normal (Normal); Sickle Cells 1+; Tallied Nucleated RBC 98 (0-0); Target Cells 2+
[2018-05-31 07:48] LABS: Pappenheimer Bodies Present; Polychromasia 2.8 % (0.0-1.9)
[2018-05-31] MEDS: HYDROmorphone PF Inj 1 MG/ML Ampul IV.PUSH PRN ×2 (08:04→20:14)
[2018-05-31] MEDS: Metoprolol Tartrate 25 MG Tablet PO SCH ×2 (08:04→20:14)
[2018-05-31] MEDS: Docusate Sodium 100 MG Capsule PO SCH ×2 (08:04→20:13)
[2018-05-31] MEDS: Folic Acid 1 MG Tablet PO SCH (08:04)
--- NOTE | 2018-05-31 14:13 | P.PNIM ---
Subjective Interval history: still painful not taking deep breaths Physical Exam Vital signs: Last Vital Signs Temp 98.9 F 05/31/18 12:00 Pulse 84 05/31/18 12:00 Resp 18 05/31/18 12:00 BP 119/58 L 05/31/18 12:00 Pulse Ox 90 L 05/31/18 12:00 Narrative: splinting to breath oriented heart reg lung cta abds /nt ext no edema Results Labs CBC & Chem 7: 05/31/18 05:59 05/31/18 05:59 Assessment and Plan Assessment (1) Sickle cell crisis: Code(s): D57.00 - Hb-SS disease with crisis, unspecified Status: Acute Plan Sickle Cell crisis - Pt is a 58 y/o AAF with sickle cell anemia follows with Dr. Borges, osteoarthritis arthritis, paroxysmal A. fib, bilateral ovarian cyst with history of hemorrhagic cyst associated with anemia, bowel obstruction 2005, hx of DVT in 2005, and hx of right eye vitreous hemorrhage with blindness. - Patient presented to the ED at [facility] on 05/30/18 with complaints of left sided rib/back pain related to sickle cell anemia. Patient reports she's had this pain which she believes is related to sickle cell crisis since she had an EUS with FNA for a pancreatic cyst on May 13, 2018. She went to [facility] on 05/28/18, where she says she had a CT of her abdomen/ pelvis which was negative and CTA of the chest which was negative for PE, noted chronic lung changes and atelectasis and a thyroid nodule. She states her primary care provider, Dr. Whitaker, today and was sent to the ED. - Patient was given IVF bolus and IV Dilaudid in emergency department which did decrease her pain slightly - Cont. IVF - Cont. Dilaudid 1mg IV Q4H PRN -discussed Inc spirometer use - Monitor labs and anemia. - Supportive care -dvt prophylaxis. Paroxysmal A. fib - Cont. Metoprolol 75mg BID - Pt reportedly not a candidate for anticoagulation due to hx of ocular hemorrhage. - Pt with loop recorder in place. Progress Note: Quality VTE Deep Vein Thrombosis/Pulmonary Embolism Present on Admission: No
[2018-06-01] MEDS: HYDROmorphone PF Inj 1 MG/ML Ampul IV.PUSH PRN ×4 (04:48→20:49)
[2018-06-01 06:38] LABS: Hemoglobin 7.4 gm/dL (11.6-15.3); Mean Corpuscular HGB Conc 32.1 % (32.0-36.0); Mean Corpuscular Hemoglobin 25.2 pg (27.0-34.0); Mean Corpuscular Volume 78.4 fL (80.0-100.0); Mean Platelet Volume 9.5 fL (7.0-11.0); Platelet Count 229 th/mm3 (150-450); Red Blood Count 2.93 mil/mm3 (4.00-5.30); Red Cell Distribution Width 24.1 % (11.6-17.2); White Blood Count 16.6 th/mm3 (4.0-11.0)
[2018-06-01 06:59] LABS: Anion Gap 6 meq/L (5-15); Blood Urea Nitrogen 2 mg/dL (7-18); Calcium 8.2 mg/dL (8.5-10.1); Carbon Dioxide 27.1 meq/L (21.0-32.0); Chloride 108 meq/L (98-107); Glomerular Filtration Rate Greater Than 89 mL/min (>89); Glucose,Random 92 mg/dL (74-106); Potassium 3.6 meq/L (3.5-5.1); Sodium 141 meq/L (136-145)
[2018-06-01 08:05] LABS: Howell-Jolly Bodies Present; Lymphocytes 21 % (9-44); Metamyelocytes 1 % (0-1); Monocytes 10 % (0-8); Platelet Estimate Normal (Normal); Platelet Morphology Normal (Normal); Tallied Nucleated RBC 267 (0-0); Target Cells 2+
[2018-06-01 08:06] LABS: Pappenheimer Bodies Present
[2018-06-01] MEDS: Folic Acid 1 MG Tablet PO SCH (08:24)
[2018-06-01] MEDS: Docusate Sodium 100 MG Capsule PO SCH ×2 (08:24→20:48)
[2018-06-01] MEDS: Sod Chloride 0.9% Inj 1,000 ML IV.CONT SCH ×2 (08:26→18:38)
[2018-06-01] MEDS: Metoprolol Tartrate 25 MG Tablet PO SCH ×2 (08:27→20:48)
--- NOTE | 2018-06-01 10:44 | P.PNIM ---
Subjective Interval history: Pt still having pain and is having to use the bedside commode because the pain is not tolerable when walking to the bathroom. She is on 2L of supplemental O2 since last night. Afebrile She reports that she had a small BM today Physical Exam Vital signs: Last Vital Signs Temp 98.7 F 06/01/18 08:00 Pulse 87 06/01/18 08:00 Resp 18 06/01/18 08:00 BP 112/55 L 06/01/18 08:00 Pulse Ox 96 06/01/18 09:34 Narrative: splinting to breath oriented heart reg lung crackles left lung base abds /nt ext no edema Results Labs CBC & Chem 7: 06/03/18 04:35 06/03/18 04:35 Imaging Chest X-Ray 05/30/18 11:08 CONCLUSION: Cardiomegaly with mild interstitial prominence Assessment and Plan Assessment (1) Sickle cell crisis: Code(s): D57.00 - Hb-SS disease with crisis, unspecified Status: Acute Plan Sickle Cell crisis - Pt is a 58 y/o AAF with sickle cell anemia follows with Dr. Borges, osteoarthritis arthritis, paroxysmal A. fib, bilateral ovarian cyst with history of hemorrhagic cyst associated with anemia, bowel obstruction 2005, hx of DVT in 2005, and hx of right eye vitreous hemorrhage with blindness. - Patient presented to the ED at [facility] on 05/30/18 with complaints of left sided rib/back pain related to sickle cell anemia. Patient reports she's had this pain which she believes is related to sickle cell crisis since she had an EUS with FNA for a pancreatic cyst on May 13, 2018. She went to [facility] on 05/28/18, where she says she had a CT of her abdomen/ pelvis which was negative and CTA of the chest which was negative for PE, noted chronic lung changes and atelectasis and a thyroid nodule. She states her primary care provider, Dr. Whitaker, today and was sent to the ED. - Patient was given IVF bolus and IV Dilaudid in emergency department which did decrease her pain slightly - Cont. IVF - Cont. Dilaudid 1mg IV Q4H PRN and Oxycodone 10mg Q4H PRN - Constipation precautions - Cont. Inc spirometer use - Monitor labs and anemia. - CXR today as the pt is requiring supplemental O2 today - Supportive care - DVT prophylaxis. Paroxysmal A. fib - Cont. Metoprolol 75mg BID - Pt reportedly not a candidate for anticoagulation due to hx of ocular hemorrhage. - Pt with loop recorder in place. Progress Note: Quality VTE Deep Vein Thrombosis/Pulmonary Embolism Present on Admission: No
--- NOTE | 2018-06-01 11:08 | XR ---
EXAM DATE: 06/01/2018 11:05 AM EST AGE/SEX: 58 years / Female INDICATIONS: Hypoxia. Chest pain. CLINICAL DATA: This is the patient's subsequent encounter. Patient reports that signs and symptoms h ave been present for 3 days and indicates a pain score of 6/10. MEDICAL/SURGICAL HISTORY: . Sickle Cell disease. . [id number]. Loop recorder. . COMPARISON: [facility] [place]ST 2V PA&LAT, 05/30/2018. . FINDINGS: Stable appearance of a central line. Heart size appears grossly normal, slightly improved from the pr ior exam. Minimal left lower lobe airspace consolidation. The lungs are otherwise clear. Cardiac loop recorder visualized. CONCLUSION: New airspace consolidation involving the left lower lobe. Electronically signed by: Esthela Solano MD Board Certified Radiologist 06/01/2018 11:07 AM Amado SHEPPARD
[2018-06-01] MEDS: Levofloxacin 500 mg Premix Inj 500 MG/100 ML PIGGYBACK IV.SIG SCH (15:12)
--- NOTE | 2018-06-01 22:48 | MB ---
cc: Samantha Leblanc MD DATE: 06/01/2018 REASON FOR CONSULTATION: Consult requested by [facility] for evaluation and management of sickle cell painful crisis. HISTORY OF PRESENT ILLNESS: Ortiz is a 58-year-old female. She has a history of sickle cell anemia with multiple painful crises. She used to see Dr. Gutierrez. After Dr. Gutierrez retired, her care was transferred to my colleague, Dr. Fadi Borges. The patient recently was found to have a pancreatic cyst. She underwent an endoscopic ultrasound biopsy of the pancreatic cyst. The result of that is not available. The patient stated that, in fact, she had an appointment with the blanket binder tomorrow. Since then, the patient is having left-sided flank pain. She went to [facility] ER for the pain. She had a CT scan of the chest, abdomen and pelvis, which came back negative per pt. She was discharged on pain medications. The patient now came to the emergency room at [place] yesterday. She is admitted to the hospital. She has been on Dilaudid. Her pain is improving. I have been asked to see the patient for further evaluation. The patient does not appear to be in any severe distress. She is complaining of left flank pain and she thinks that this is one of the sickle cell painful crisis. She denies any fever. She denies any shortness of breath. She denies any cough. The rest of the review of systems is negative. PAST MEDICAL HISTORY: Sickle cell anemia with multiple painful crises, arthritis, bilateral ovarian cysts, pancreatic cyst, history of DVT, right eye blindness due to vitreous hemorrhage, paroxysmal atrial fibrillation. PAST SURGICAL HISTORY: Ovarian cystectomy. Recently, she had endoscopic ultrasound biopsy of the pancreatic cyst. Loop recorder implantation, exploratory laparotomy, lysis of adhesions causing a small-bowel obstruction, Infusaport, appendectomy, cholecystectomy, tubal ligation. ALLERGIES: CEFTRIAXONE. MEDICATIONS PRIOR TO COMING TO HOSPITAL: 1. Hydrea. 2. Metoprolol. 3. Oxycodone. 4. Lactulose. FAMILY HISTORY: Significant for sickle cell trait. SOCIAL HISTORY: She does not smoke cigarettes, does not drink alcohol. PHYSICAL EXAMINATION: GENERAL: She is a well-developed, well-nourished female in no apparent distress. VITAL SIGNS: Temperature 99, heart rate is 80, blood pressure 133/63, O2 saturation 98%. OBJECTIVE: VITAL SIGNS: Stable. Afebrile. HEAD, EYES, EARS, NOSE, AND THROAT: Pupils equal, round, reactive to light and accommodation, extraocular movements intact. Anicteric. No oral lesions noted. No thrush noted. NECK: Supple. No JVD. No masses noted. LUNGS: Clear. No wheezing, rhonchi, or rales. HEART: Irregularly irregular. ABDOMEN: Soft and nontender. No hepatosplenomegaly. No abnormal bowel sounds. No guarding or rigidity noted. EXTREMITIES: No pedal edema. No cyanosis, no clubbing. NEUROLOGIC: Awake, alert, oriented x 3. Sensory and motor seem to be intact. SKIN: No bruises or petechiae noted. BREASTS: No masses noted. LYMPH NODES: No cervical, supraclavicular, or axillary lymphadenopathy noted. BACK: There is no spinal tenderness noted. ASSESSMENT: Sickle cell painful crisis. PLAN: I have reviewed her available records and I have discussed with the patient regarding her crisis. She has been getting narcotic and her pain has improved. Her hemoglobin is 7.4. I did not recommend any blood transfusion for that. Her total bilirubin was 5.5 when she came into the emergency room 2 days ago. Her LDH is also elevated at 704. The patient appears to have hemolytic painful crisis. She is getting narcotics, hydration, oxygen and folic acid. My recommendation is to continue the present management. I will have her primary glass handler, Dr. Borges, see her tomorrow morning. Thank you for asking my opinion. MD JESSIE Qureshi/anita , 10:04 PM , 10:14 PM ANA
[2018-06-02] MEDS: Sod Chloride 0.9% Inj 1,000 ML IV.CONT SCH ×3 (03:32→14:45)
[2018-06-02 05:43] LABS: Hematocrit 23.4 % (35.0-46.0); Hemoglobin 7.7 gm/dL (11.6-15.3); Mean Corpuscular HGB Conc 32.9 % (32.0-36.0); Mean Corpuscular Hemoglobin 26.2 pg (27.0-34.0); Mean Corpuscular Volume 79.6 fL (80.0-100.0); Mean Platelet Volume 9.4 fL (7.0-11.0); Platelet Count 202 th/mm3 (150-450); Red Blood Count 2.95 mil/mm3 (4.00-5.30); Red Cell Distribution Width 24.6 % (11.6-17.2); White Blood Count 13.7 th/mm3 (4.0-11.0)
[2018-06-02 05:48] LABS: Alanine Aminotransferase 38 U/L (10-53); Albumin 3.1 g/dL (3.4-5.0); Alkaline Phosphatase 221 U/L (45-117); Anion Gap 5 meq/L (5-15); Aspartate Aminotransferase 72 U/L (15-37); Blood Urea Nitrogen 2 mg/dL (7-18); Calcium 8.7 mg/dL (8.5-10.1); Carbon Dioxide 27.1 meq/L (21.0-32.0); Chloride 109 meq/L (98-107); Glomerular Filtration Rate Greater Than 89 mL/min (>89); Glucose,Random 86 mg/dL (74-106); Potassium 3.9 meq/L (3.5-5.1); Sodium 141 meq/L (136-145); Total Protein 7.5 g/dL (6.4-8.2)
[2018-06-02] MEDS: Folic Acid 1 MG Tablet PO SCH (08:42)
[2018-06-02] MEDS: Docusate Sodium 100 MG Capsule PO SCH ×2 (08:42→20:45)
[2018-06-02] MEDS: Metoprolol Tartrate 25 MG Tablet PO SCH ×2 (08:42→20:45)
[2018-06-02 10:27] LABS: Eosinophils 2 % (0-4); Lymphocytes 36 % (9-44); Monocytes 13 % (0-8); Tallied Nucleated RBC 221 (0-0)
[2018-06-02 10:28] LABS: Platelet Estimate Normal (Normal); Polychromasia 3.7 % (0.0-1.9)
[2018-06-02 10:29] LABS: Basophilic Stippling Heavy; Howell-Jolly Bodies Present; Pappenheimer Bodies Present
[2018-06-02 10:30] LABS: Sickle Cells 1+; Target Cells 1+
--- NOTE | 2018-06-02 11:47 | P.PNIM ---
Subjective Interval history: Pain controlled utilizing IV dilaudid/PO roxicodone. Pt c/o crackling at left lung base with inspiration. Physical Exam Vital signs: Last Vital Signs Temp 98.3 F 06/02/18 07:54 Pulse 69 06/02/18 07:54 Resp 17 06/02/18 07:54 BP 131/63 06/02/18 07:54 Pulse Ox 98 06/02/18 07:54 Narrative: splinting to breath oriented heart reg lung cta abds /nt ext no edema Results Labs CBC & Chem 7: 06/02/18 05:09 06/02/18 05:09 Assessment and Plan Assessment (1) Sickle cell crisis: Code(s): D57.00 - Hb-SS disease with crisis, unspecified Status: Acute Plan Sickle Cell crisis - Pt is a 58 y/o AAF with sickle cell anemia follows with Dr. Borges, osteoarthritis arthritis, paroxysmal A. fib, bilateral ovarian cyst with history of hemorrhagic cyst associated with anemia, bowel obstruction 2005, hx of DVT in 2005, and hx of right eye vitreous hemorrhage with blindness. - Patient presented to the ED at [facility] on 05/30/18 with complaints of left sided rib/back pain related to sickle cell anemia. Patient reports she's had this pain which she believes is related to sickle cell crisis since she had an EUS with FNA for a pancreatic cyst on May 13, 2018. She went to [facility] on 05/28/18, where she says she had a CT of her abdomen/ pelvis which was negative and CTA of the chest which was negative for PE, noted chronic lung changes and atelectasis and a thyroid nodule. She states her primary care provider, Dr. Whitaker, today and was sent to the ED. - Patient was given IVF bolus and IV Dilaudid in emergency department which did decrease her pain slightly - comgmt with Hematology/Oncology - Cont. IVF - Cont. Dilaudid 1mg IV Q4H PRN and Oxycodone 10mg Q4H PRN - Constipation precautions - Cont. Inc spirometer use - Monitor labs and anemia. - supplemental oxygen - CXR (06/01) --> LLL infiltrate - repeat CBC in AM - repeat CXR in AM - continue levaquin - appreciate input from Dr. Leblanc, Hematology. - Supportive care - DVT prophylaxis. Infiltrate, LLL - levaquin (06/01 - present) - Incentive spirometer - observe Paroxysmal A. fib - Cont. Metoprolol 75mg BID - Pt reportedly not a candidate for anticoagulation due to hx of ocular hemorrhage. - Pt with loop recorder in place. Progress Note: Quality VTE Deep Vein Thrombosis/Pulmonary Embolism Present on Admission: No
[2018-06-02] MEDS: HYDROmorphone PF Inj 1 MG/ML Ampul IV.PUSH PRN ×2 (11:52→20:48)
--- NOTE | 2018-06-02 15:39 | P.PNONC ---
Subjective Interval history: Patient lying in bed, no acute distress. She has continued rib pain, mainly on her left side. She denies shortness of breath at this time. She has been using her incentive spirometer. Objective Vital Signs/Intake & Output: Vital Signs 06/01/18 16:00 06/01/18 20:59 06/02/18 00:19 Temperature 99.0 F 98.1 F 98.2 F Pulse Rate 80 90 73 Respiratory Rate 18 16 16 Blood Pressure 133/63 134/61 119/56 L Pulse Oximetry 98 94 L 92 L 06/02/18 07:54 06/02/18 11:59 Temperature 98.3 F 97.8 F Pulse Rate 69 71 Respiratory Rate 17 Blood Pressure 131/63 128/59 L Pulse Oximetry 98 92 L Intake & Output 06/01/18 06/02/18 06/02/18 18:59 06:59 18:59 Intake Total 2950 / 2950 1480 / 1480 1000 / 1000 Balance 2950 / 2950 1480 / 1480 1000 / 1000 Weight 68.1 kg Intake: IV 2100 / 2100 1000 / 1000 1000 / 1000 NS Inj 1,000 ML @ 100 mls/hr IV 2000 / 2000 1000 / 1000 1000 / 1000 .CONT .Q10H ALEJANDRA Rx#:[id number] Levaquin 500 mg Premix Inj 500 100 / 100 mg In 100 ml @ 100 mls/hr IV. SIG Q24H ALEJANDRA Rx#:[id number] Oral 850 / 850 480 / 480 Other: # Voids 4 5 Date of Last Bowel Movement 05/29/18 06/01/18 # Bowel Movements 0 Result Diagrams: 06/02/18 05:09 06/02/18 05:09 Laboratory Results: Laboratory Results - last 24 hr 06/02/18 06/02/18 05:09 05:09 WBC 13.7 H RBC 2.95 L Hgb 7.7 L Hct 23.4 L MCV 79.6 L MCH 26.2 L MCHC 32.9 RDW 24.6 H Plt Count 202 MPV 9.4 Prelim Diff (Auto) Manual diff required WBC Differential Manual diff final Seg Neuts % (Manual) 49 Lymphocytes % (Manual) 36 Monocytes % (Manual) 13 H Eosinophils % (Manual) 2 Abs Neuts (Manual) 6.7 Nucleated RBCs/100 WBC 221 H Differential Comment . Platelet Estimate Normal Platelet Morphology Enlarged H Polychromasia 3.7 H Basophilic Stippling Heavy H Pappenheimer Bodies Present H Sickle Cells 1+ H Target Cells 1+ H [place] Bodies Present H Keratocytes Occ H Sodium 141 Potassium 3.9 Chloride 109 H Carbon Dioxide 27.1 Anion Gap 5 BUN 2 L Creatinine 0.53 Estimated GFR Greater than 89 Random Glucose 86 Calcium 8.7 Total Bilirubin 3.8 H AST 72 H ALT 38 Alkaline Phosphatase 221 H Total Protein 7.5 D Albumin 3.1 L Medications: Active Medications Generic Name Dose Route Start Last Admin Trade Name Freq PRN Reason Stop Dose Admin Docusate Sodium 100 mg 05/30/18 21:00 06/02/18 08:42 Colace PO 100 mg BID ALEJANDRA Administration Folic Acid 1 mg 05/31/18 09:00 06/02/18 08:42 Folic Acid PO 1 mg DAILY ALEJANDRA Administration Hydromorphone HCl 1 mg 05/31/18 15:44 06/02/18 11:52 Dilaudid Pf Inj IV.PUSH 1 mg Q4H PRN Administration breakthrough pain over 7 Sodium Chloride 1,000 mls @ 100 mls/hr 05/30/18 15:15 06/02/18 14:45 Ns Inj IV.CONT 100 mls/hr .Q10H ALEJANDRA Administration Levofloxacin/Dextrose 500 mg in 100 mls @ 100 mls/hr 06/01/18 15:00 06/01/18 16:12 Levaquin 500 Mg Premix Inj IV.SIG Infused Q24H ALEJANDRA Infusion Metoprolol Tartrate 75 mg 05/30/18 21:00 06/02/18 08:42 Lopressor PO 75 mg BID ALEJANDRA Administration Multivitamins 1 tab 05/31/18 09:00 06/02/18 08:42 Theragran PO 1 tab DAILY [facility] Administration Ondansetron HCl 4 mg 05/30/18 15:08 06/01/18 17:29 Zofran Inj IV.PUSH 4 mg Q6H PRN Administration NAUSEA Oxycodone HCl 10 mg 05/31/18 15:43 06/02/18 08:42 Roxicodone PO 10 mg Q4H PRN Administration pain 3-10 Sodium Chloride 2 ml 05/30/18 21:00 06/02/18 08:46 Ns Flush IV.FLUSH Not Given BID [facility] Objective Remarks: GENERAL: Well-nourished, well-developed female patient, in no acute distress. SKIN: Warm and dry. HEAD: Normocephalic. EYES: No scleral icterus. No injection or drainage. NECK: Supple, trachea midline. CARDIOVASCULAR: Regular rate and rhythm without murmurs. RESPIRATORY: Posterior breath sounds clear, equal bilaterally. No accessory muscle use. GASTROINTESTINAL: Abdomen soft, non-tender, nondistended. EXTREMITIES: No cyanosis, or edema. MUSCULOSKELETAL: Adequate muscle tone. NEUROLOGICAL: No obvious focal deficit. Awake, alert, and oriented x3. PSYCHIATRIC: Appropriate mood and affect; insight and judgment normal. Assessment/Plan - Plan Ms. Perez is a pleasant 58-year-old female patient, currently hospitalized with sickle cell pain crisis. She reports that she is under the care of Dr. Gutierrez for hematology. Plan: 1. Sickle cell pain crisis, continue pain medication, supplemental oxygen, folic acid and hydration. 2. Monitor for oversedation. 3. Repeat CBC in the a.m.
[2018-06-02] MEDS: Levofloxacin 500 mg Premix Inj 500 MG/100 ML PIGGYBACK IV.SIG SCH (15:43)
[2018-06-03] MEDS: Sod Chloride 0.9% Inj 1,000 ML IV.CONT SCH ×4 (00:10→18:38)
[2018-06-03 05:40] LABS: Hematocrit 25.1 % (35.0-46.0); Hemoglobin 8.1 gm/dL (11.6-15.3); Mean Corpuscular HGB Conc 32.4 % (32.0-36.0); Mean Corpuscular Hemoglobin 25.9 pg (27.0-34.0); Mean Corpuscular Volume 79.9 fL (80.0-100.0); Mean Platelet Volume 10.1 fL (7.0-11.0); Platelet Count 257 th/mm3 (150-450); Red Blood Count 3.15 mil/mm3 (4.00-5.30); Red Cell Distribution Width 27.5 % (11.6-17.2); White Blood Count 11.5 th/mm3 (4.0-11.0)
[2018-06-03 06:12] LABS: Anion Gap 6 meq/L (5-15); Blood Urea Nitrogen 3 mg/dL (7-18); Calcium 8.6 mg/dL (8.5-10.1); Carbon Dioxide 26.6 meq/L (21.0-32.0); Chloride 109 meq/L (98-107); Glomerular Filtration Rate Greater Than 89 mL/min (>89); Glucose,Random 90 mg/dL (74-106); Magnesium 1.9 mg/dL (1.5-2.5); Potassium 3.9 meq/L (3.5-5.1); Sodium 142 meq/L (136-145)
[2018-06-03 07:00] LABS: Eosinophils 4 % (0-4); Lymphocytes 31 % (9-44); Metamyelocytes 2 % (0-1); Monocytes 9 % (0-8); Platelet Estimate Normal (Normal); Platelet Morphology Normal (Normal); Tallied Nucleated RBC 371 (0-0)
[2018-06-03 07:02] LABS: Target Cells 2+
[2018-06-03 07:03] LABS: Howell-Jolly Bodies Present; Pappenheimer Bodies Present
[2018-06-03 07:04] LABS: Basophilic Stippling Moderate; Sickle Cells 1+
--- NOTE | 2018-06-03 07:12 | XR ---
EXAM DATE: 06/03/2018 7:04 AM EST AGE/SEX: 58 years / Female INDICATIONS: Pain left chest and flank, evaluate infiltrate CLINICAL DATA: This is the patient's subsequent encounter. Patient reports that signs and symptoms h ave been present for 4 - 6 days and indicates a pain score of 5/10. MEDICAL/SURGICAL HISTORY: Sickle Cell disease. . Infusaport, loop recorder [place] [facility] [place]. [facility] [place]&LAT[place]/30/[place]. . FINDINGS: Portable AP view of the chest demonstrates a normal-sized cardiac silhouette. Left subclavian central line/[id number] distal tip is in the superior aspect of the SVC, stable from the prior examinatio n. Lungs are underinflated with mild airspace opacity at the left lower lung zone, stable from the pr ior study. No pneumothorax or pleural effusion is identified. Bones and soft tissues demonstrate no a cute abnormality. 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 CONCLUSION: Stable left lower lung zone airspace consolidation. Electronically signed by: Eric Harrington MD Board Certified Radiologist 06/03/2018 7:11 AM EST
[2018-06-03] MEDS: HYDROmorphone PF Inj 1 MG/ML Ampul IV.PUSH PRN ×3 (09:04→20:39)
[2018-06-03] MEDS: Folic Acid 1 MG Tablet PO SCH (09:04)
[2018-06-03] MEDS: Docusate Sodium 100 MG Capsule PO SCH ×2 (09:05→20:40)
[2018-06-03] MEDS: Metoprolol Tartrate 25 MG Tablet PO SCH ×2 (09:10→20:40)
--- NOTE | 2018-06-03 09:52 | P.PNIM ---
Subjective Interval history: Pt does not feel that her pain is still well controlled but in reviewing her medication administrations, she took Roxicodone on 06/02 at 8: 42 AM and then again at 17:41 PM and her IV Dilaudid she used at 11:52AM and 20: 48 at 06/02. Pt is moving her bowels. She had a small soft BM yesterday She is not eating much She is off supplemental O2 Physical Exam Vital signs: Last Vital Signs Temp 98.7 F 06/03/18 08:10 Pulse 72 06/03/18 08:10 Resp 19 06/03/18 08:10 BP 130/66 06/03/18 08:10 Pulse Ox 98 06/03/18 08:10 Narrative: General: NAD, appears more comfortable this morning after receiving IV Dilaudid. Cardiac: Reg Chest: Crackles at the left base. Abd: +BS, soft NT Ext: No edema Results Labs CBC & Chem 7: 06/03/18 04:35 06/03/18 04:35 Imaging Chest X-Ray 05/30/18 11:08 CONCLUSION: Cardiomegaly with mild interstitial prominence Chest X-Ray 06/01/18 00:00 CONCLUSION: New airspace consolidation involving the left lower lobe. Chest X-Ray 06/03/18 00:00 CONCLUSION: Stable left lower lung zone airspace consolidation. Assessment and Plan Assessment (1) Sickle cell crisis: Code(s): D57.00 - Hb-SS disease with crisis, unspecified Status: Acute Plan Sickle Cell crisis - Pt is a 58 y/o AAF with sickle cell anemia follows with Dr. Borges, osteoarthritis arthritis, paroxysmal A. fib, bilateral ovarian cyst with history of hemorrhagic cyst associated with anemia, bowel obstruction 2005, hx of DVT in 2005, and hx of right eye vitreous hemorrhage with blindness. - Patient presented to the ED at [facility] [place] on 05/30/18 with complaints of left sided rib/back pain related to sickle cell anemia. Patient reports she's had this pain which she believes is related to sickle cell crisis since she had an EUS with FNA for a pancreatic cyst on May 13, 2018. She went to [facility] on 05/28/18, where she says she had a CT of her abdomen/ pelvis which was negative and CTA of the chest which was negative for PE, noted chronic lung changes and atelectasis and a thyroid nodule. She states her primary care provider, Dr. Whitaker, today and was sent to the ED. - Patient was given IVF bolus and IV Dilaudid in emergency department which did decrease her pain slightly - comgmt with Hematology/Oncology - Cont. IVF - Cont. Dilaudid 1mg IV Q4H PRN and Oxycodone 10mg Q4H PRN - May need to schedule the Roxicodone to try to obtain better pain control as the pt seems to be going too long between doses of pain meds and not ever obtaining adequate control. - Change Roxicodone to 10mg Q8H scheduled for better pain control - Constipation precautions - Cont. Inc spirometer use - Monitor labs and anemia. - supplemental oxygen - CXR (06/01) --> LLL infiltrate - Repeat CBC with a stable to improved Hgb - Repeat CXR (06/03) with stable LLL airspace consolidation. - continue Levaquin - appreciate input from Dr. Leblanc, Hematology. - Supportive care - DVT prophylaxis. Infiltrate, LLL - Levaquin (06/01 - present) - Incentive spirometer - observe Paroxysmal A. fib - Cont. Metoprolol 75mg BID - Pt reportedly not a candidate for anticoagulation due to hx of ocular hemorrhage. - Pt with loop recorder in place. Progress Note: Quality VTE Deep Vein Thrombosis/Pulmonary Embolism Present on Admission: No
[2018-06-03] MEDS: Levofloxacin 500 mg Premix Inj 500 MG/100 ML PIGGYBACK IV.SIG SCH (15:23)
[2018-06-04] MEDS: Sod Chloride 0.9% Inj 1,000 ML IV.CONT SCH ×2 (04:14→14:23)
[2018-06-04] MEDS: Metoprolol Tartrate 25 MG Tablet PO SCH (08:43)
[2018-06-04] MEDS: Folic Acid 1 MG Tablet PO SCH (08:43)
[2018-06-04] MEDS: Docusate Sodium 100 MG Capsule PO SCH (08:44)
[2018-06-04] MEDS: HYDROmorphone PF Inj 1 MG/ML Ampul IV.PUSH PRN (08:46)
[2018-06-04 10:08] VITALS: O2SAT 94
--- NOTE | 2018-06-04 11:44 | P.PNIM ---
Subjective Interval history: Patient reports less pain today Patient did require a dose of Dilaudid IV this AM Physical Exam Vital signs: Last Vital Signs Temp 98.5 F 06/04/18 08:00 Pulse 69 06/04/18 08:00 Resp 13 06/04/18 08:00 BP 129/61 06/04/18 08:00 Pulse Ox 94 L 06/04/18 08:00 Narrative: General: NAD, appears more comfortable this morning after receiving IV Dilaudid. Cardiac: Reg Chest: Crackles at the left base. Abd: +BS, soft NT Ext: No edema Results Labs CBC & Chem 7: 06/03/18 04:35 06/03/18 04:35 Assessment and Plan Assessment (1) Sickle cell crisis: Code(s): D57.00 - Hb-SS disease with crisis, unspecified Status: Acute Plan Sickle Cell crisis - Pt is a 58 y/o AAF with sickle cell anemia follows with Dr. Borges, osteoarthritis arthritis, paroxysmal A. fib, bilateral ovarian cyst with history of hemorrhagic cyst associated with anemia, bowel obstruction 2005, hx of DVT in 2005, and hx of right eye vitreous hemorrhage with blindness. - Patient presented to the ED at [facility] on 05/30/18 with complaints of left sided rib/back pain related to sickle cell anemia. Patient reports she's had this pain which she believes is related to sickle cell crisis since she had an EUS with FNA for a pancreatic cyst on May 13, 2018. She went to [facility] on 05/28/18, where she says she had a CT of her abdomen/ pelvis which was negative and CTA of the chest which was negative for PE, noted chronic lung changes and atelectasis and a thyroid nodule. She states her primary care provider, Dr. Whitaker, today and was sent to the ED. - Patient was given IVF bolus and IV Dilaudid in emergency department which did decrease her pain slightly - comgmt with Hematology/Oncology - Cont. IVF - Cont. Dilaudid 1mg IV Q4H PRN and Oxycodone 10mg Q4H PRN - May need to schedule the Roxicodone to try to obtain better pain control as the pt seems to be going too long between doses of pain meds and not ever obtaining adequate control. - Change Roxicodone to 10mg Q8H scheduled for better pain control - DC IV Dilaudid - Constipation precautions - Cont. Inc spirometer use - Monitor labs and anemia. - supplemental oxygen - CXR (06/01) --> LLL infiltrate - Repeat CBC with a stable to improved Hgb - Repeat CXR (06/03) with stable LLL airspace consolidation. - continue Levaquin - appreciate input from Dr. Leblanc, Hematology. - Supportive care - DVT prophylaxis. Infiltrate, LLL - Levaquin (06/01 - present) - Incentive spirometer - observe Paroxysmal A. fib - Cont. Metoprolol 75mg BID - Pt reportedly not a candidate for anticoagulation due to hx of ocular hemorrhage. - Pt with loop recorder in place. If patient pain continues to improve and she does not require IV Dilauadid plan to DC tomorrow Progress Note: Quality VTE Deep Vein Thrombosis/Pulmonary Embolism Present on Admission: No
[2018-06-04 13:11] VITALS: BP 139/60; PULSE 72; RESP 14; TEMP 98.4
[2018-06-04] MEDS: Levofloxacin 500 mg Premix Inj 500 MG/100 ML PIGGYBACK IV.SIG SCH (14:23)
--- NOTE | 2018-06-04 15:20 | P.DS ---
DS: Providers Date of admission: 05/30/18 14:45 Primary care physician: Kenneth Whitaker Consults: 06/01/18 13:13 Consult to Hematology Routine Consulting Provider: Calixto Leblanc Reason for Consultation: sickle cell crisis with new LLL infiltrate Notified:: Service Spoke with:: YAJAIRA Date Notified:: 06/01/18 Time Notified:: 13:17 Ordering Provider: NEYMAR Brief History from admission: Mrs. Perez is a 58 y/o AAF with sickle cell anemia follows with Dr. Borges, osteoarthritis arthritis, paroxysmal A. fib, bilateral ovarian cyst with history of hemorrhagic cyst associated with anemia, bowel obstruction 2005, hx of DVT in 2005, and hx of right eye vitreous hemorrhage with blindness. Patient presented to the ED at [facility] on 05/30/18 with complaints of left sided rib/back pain related to sickle cell anemia. Patient reports she's had this pain which she believes is related to sickle cell crisis since she had an EUS with FNA for a pancreatic cyst on May 13, 2018. She takes oxycodone at home but has continued to have significant pain. She reportedly went to [facility] on 05/28/18, where she says she had a CT of her abdomen/pelvis which was negative and CTA of the chest which was negative for PE, noted chronic lung changes and atelectasis and a thyroid nodule. She states her primary care provider, Dr. Whitaker, today and was sent to the ED. Patient reports the IV Dilaudid given in emergency department did decrease her pain. Patient denies fevers/chills, nausea/vomiting, diarrhea, constipation, palpitations or shortness of breath. Past Medical History Sickle-cell anemia with prior history of sickle-cell crisis. 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 Osteoarthritis Bilateral ovarian cyst with history of hemorrhagic cyst associated with anemia Postoperative complications after ovarian cystectomy with pelvic abscess and small bowel obstruction in 2005 Recurrent abdominal pain probably secondary to ovarian masses with hemorrhagic cysts Irregular menstruation Distant history of DVT. Anticoagulation was stopped in '06 after patient had a hemorrhagic cyst Right eye vitreous hemorrhage and blindness Paroxysmal A. 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 No lymphadenopathy noted. Loop recorder implantation, 2016 Laparoscopy Ovarian cystectomy 2007 Exploratory laparotomy Drainage of pelvic abscesses Lysis of adhesion Release of small bowel obstruction Previous laparoscopic ovarian cystectomy Insertion of [id number] Appendectomy Cholecystectomy 1992 Bilateral tubal ligation Family History Father has CHF Mother of aneurysm bleed Both parents have sickle trait Social History Denies alcohol use Denies tobacco use Denies illicit drug use DS: Diagnosis Discharge Diagnosis (1) Sickle cell crisis: Status: Acute DS: Summary Sickle Cell crisis - Pt is a 58 y/o AAF with sickle cell anemia follows with Dr. Borges, osteoarthritis arthritis, paroxysmal A. fib, bilateral ovarian cyst with history of hemorrhagic cyst associated with anemia, bowel obstruction 2005, hx of DVT in 2005, and hx of right eye vitreous hemorrhage with blindness. - Patient presented to the ED at [facility] on 05/30/18 with complaints of left sided rib/back pain related to sickle cell anemia. Patient reports she's had this pain which she believes is related to sickle cell crisis since she had an EUS with FNA for a pancreatic cyst on May 13, 2018. She went to [facility] on 05/28/18, where she says she had a CT of her abdomen/ pelvis which was negative and CTA of the chest which was negative for PE, noted chronic lung changes and atelectasis and a thyroid nodule. She states her primary care provider, Dr. Whitaker, today and was sent to the ED. - Patient was given IVF bolus and IV Dilaudid in emergency department which did decrease her pain slightly - comgmt with Hematology/Oncology - Cont. IVF - Cont. Dilaudid 1mg IV Q4H PRN and Oxycodone 10mg Q4H PRN - May need to schedule the Roxicodone to try to obtain better pain control as the pt seems to be going too long between doses of pain meds and not ever obtaining adequate control. - Change Roxicodone to 10mg Q8H scheduled for better pain control - DC IV Dilaudid - Constipation precautions - Cont. Inc spirometer use - Monitor labs and anemia. - supplemental oxygen - CXR (06/01) --> LLL infiltrate - Repeat CBC with a stable to improved Hgb - Repeat CXR (06/03) with stable LLL airspace consolidation. - continue Levaquin - appreciate input from Dr. Leblanc, Hematology. - Supportive care - DVT prophylaxis. Infiltrate, LLL - Levaquin (06/01 - present) - Incentive spirometer - observe Paroxysmal A. fib - Cont. Metoprolol 75mg BID - Pt reportedly not a candidate for anticoagulation due to hx of ocular hemorrhage. - Pt with loop recorder in place. Would like to continue to monitor patient for additional day. Patient does not agree and insist on being DC'd home today. Time Spent with Patient Total time spent providing and/or coordinating discharge services: Quality: VTE Deep Vein Thrombosis/Pulmonary Embolism Present on Admission: No Exam Narrative Exam Narrative: General: NAD, appears more comfortable this morning after receiving IV Dilaudid. Cardiac: Reg Chest: Clear through out Abd: +BS, soft NT Ext: No edema Results Impressions ITS Impressions Chest X-Ray 06/03/18 00:00 CONCLUSION: Stable left lower lung zone airspace consolidation. Discharge Plan Discharge Disposition Patient Disposition: Discharge Home Discharge Condition Condition: Stable Discharge Order Discharge Orders: Discharge Order (Routine); Ordered 06/04/18 Ordered By: Henna Boykin Physicians Team Primary Care Provider: Kenneth Whitaker Attending Provider: Dominic Claire Other Providers: Fadi Borges Rxs /Orders / Referrals /Forms Prescriptions: New levofloxacin [Levaquin] 500 mg tablet 500 mg PO DAILY 3 Days Qty: 3 RF: 0 Continue hydroxyurea 500 mg Capsule 500 mg PO HS RF: 0 metoprolol tartrate 50 mg Tablet 1.5 tab PO BID RF: 0 oxycodone 5 mg Tablet 5 mg PO Q4-6H PRN (Reason: Pain) RF: 0 lactulose 20 gram/30 mL Solution 30 g PO BID PRN (Reason: Constipation) RF: 0 Referrals: Kenneth Whitaker D.O. [Primary Care Provider] - See Instructions (Follow up in 1 week) Status ED Status: Left Department
== END 2018-06-04 17:54 | disposition home or self-care (01) ==
LOC: NEPC 10:21 → NEDA 14:45 → N06 16:44
PROVIDERS: ADMIT Hospitalist; ATTEND Hospitalist